=== PATIENT | female | born 1980 | race Caucasian/White ===

== ENCOUNTER 2017-09-27 17:54 | Emergency (ER) | payer MEDICAID, SELFPAY | END 2017-09-27 19:07 | disposition home or self-care (01) | PROVIDERS: Emergency Provider Nurse Practitioner Family; Family Provider Emergency Medicine; Visit Provider Nurse Practitioner Family | DX: M26.69 Other specified disorders of temporomandibular joint (principal); F17.210 Nicotine dependence, cigarettes, uncomplicated; Z85.41 Personal history of malignant neoplasm of cervix uteri | CPT/HCPCS: 99201 ==

== ENCOUNTER 2018-05-06 14:30 | Outpatient (RCR) | payer MEDICAID, SELFPAY | END 2018-05-06 15:30 | disposition home or self-care (01) | LOC: PT 14:30 | PROVIDERS: Family Provider Emergency Medicine; PCP Emergency Medicine; Visit Provider Emergency Medicine | DX: M54.9 Dorsalgia, unspecified (principal) | CPT/HCPCS: 97010; 97110; 97163 ==

== ENCOUNTER → 2018-08-05 14:51 | Outpatient (CLI) | payer MEDICAID, SELFPAY ==
--- NOTE | 2018-08-05 14:53 | MR_ITS ---
MR lumbar spine wo con, MR 3-d myelogram/MRCP Ordering Physician: Nasir Mensah MD Patient Age: 37 years: Female HISTORY: ITS.REASON: back pain Low back pain for many years. At times bilateral leg pain. TECHNIQUE: Sagittal STIR, T1, T2, axial T1 and T2. On 1.5T Siemens wide bore MRI. 3-D MR myelogram image set obtained & performed on MRI workstation. Additional sagittal thin section T2 weighted dataset obtained from this latter acquisition as well (---76 CPT) COMPARISON :Previous MRI lumbar spine FINDINGS Lumbar vertebral bodies are intact with no compression fracture or lesion. Normal alignment. L5/S1. Disc height maintained but there is loss of hydration/disc desiccation.. Mild minimal diffuse disc bulge most evident towards the right and right foramen. Mild/ Moderate facet arthropathy and hypertrophy. More evident on left... L5 vertebra:-Bilateral Pars Defects. A definite pars defect most evident on right & a nicely demonstrated on February 2018 CT as well. However there is bony sclerosis associated with I suspect a very very subtle pars defect to the left pars at L5/S1.. Subtle reactive bone changes about this pars defect on left.. Sagittal image 14., Axial 40 L4/5. Disc desiccation but Disc height maintained.. Generous central disc bulge//broad-based central disc protrusion, which indents indents aspect of thecal sac, at midline & extends slightly to the left of midline... This appears similar, but slightly more pronounced than on December 2014 MR study. Mild facet arthropathy/ hypertrophy bilaterally at this level as well.. Mild narrowing encroachment upon the entry the foramen bilaterally L3/4. Disc well hydrated well-maintained. Intact unremarkable. Mild facet arthropathy and hypertrophy. L2/3. Disc hydrated intact. Minor facet arthropathy. L1/2 disc intact. Stable. T12/L1 disc intact. Scant disc bulge T11/T12 mild disc space narrowing with eccentric rightward disc bulge or perhaps consider is a mild broad-based disc protrusion right paracentral. This effaces the thecal sac to the right. There is associated very small focus of high T2 signal along posterior disc margin-this may reflect a small annular fissure,-just to the right of midline axial image 4 . There is also some mild facet a prominence and hypertrophy are believe evident at T11/12 a most evident the left indenting the posterior left aspect the thecal sac. 3-D MR myelogram image set., Shows only some slight anterior indentation thecal sac at L4/5, less than I would've expected from axial image. We do see the indentation upon the thecal sac to the right at the T11-12 level, similar to previous December 2014 study IMPRESSION...... 1... L5 with bilateral pars defect. No listhesis Pars defect most evident on RIGHT. The subtle LEFT pars defect with bony sclerosis reactive & minor reactive bone changes. (This L5 pars defect also nicely seen on February 2018 CT abdomen pelvis) 2... L4/5. Generous central disc bulge// broad-based central disc protrusion which indents effaces thecal sac at midline & slightly to left of midline.. Only Slight progression of this feature since 2014... Mild facet hypertrophy. 3. T11/12.. Small broad-based disc protrusion rightward. Is similar to Perhaps very slight evident than on 2015 as well. However on today's study would additional Small tiny high signal focus at posterior disc margin to the right which could reflect a tiny annular fissure as well at this T11/12 disc protrusion.
== END ==
PROVIDERS: PCP Emergency Medicine; Visit Provider Emergency Medicine
DX: M54.9 Dorsalgia, unspecified (principal)
CPT/HCPCS: 72148; 76376

== ENCOUNTER → 2018-08-19 14:30 | Outpatient (CLI) | payer MEDICAID, SELFPAY ==
--- NOTE | 2018-08-19 14:31 | US_ITS ---
US abdomen limited History:Vomiting, right upper quadrant pain Ordering Physician:Mumtaz Faith Patient Age: 37 years Comparison:None Findings: Pancreas:Unremarkable. No obvious mass or abnormal fluid collection. No ductal dilatation Liver:No focal liver lesions demonstrated. Homogeneous echogenicity. No intrahepatic biliary ductal dilatation evident Right Kidney:Unremarkable. Normal size and echogenicity. No hydronephrosis Gallbladder:No gallstones, gallbladder wall thickening, pericholecystic fluid, or biliary dilatation. Impression:Negative gallbladder/right upper quadrant ultrasound
== END ==
PROVIDERS: PCP Emergency Medicine; Visit Provider Nurse Practitioner Family
DX: R10.11 Right upper quadrant pain (principal)
CPT/HCPCS: 76705

== ENCOUNTER → 2018-09-06 10:08 | Outpatient (POV) | payer MEDICAID, SELFPAY ==
[2018-09-06 10:19] VITALS: BP 150/95; PULSE 130; RESP 18; O2SAT 98
--- NOTE | 2018-09-06 11:08 | HMH.PMCON ---
Assessment and Plan (1) Lumbar spondylosis Current visit: Yes Status: Chronic Category: Medical Code(s): M47.816 - Spondylosis without myelopathy or radiculopathy, lumbar region (2) Degenerative disc disease Current visit: Yes Status: Chronic Qualifiers: Spinal region: lumbar Qualified Code(s): M51.36 - Other intervertebral disc degeneration, lumbar region Category: Medical - Assessment and plan all Dx Assessment and Plan for all problems:: We will schedule the patient for an L4-L5 L5-S1 medial branch block/facet joint injection. I believe that this would be beneficial for her. Patient and I discussed the diagnostic nature of this. Patient may be interested in RFA in the future. Patient is not on any anticoagulation therapy. She is continuing a home stretching exercise program. This note was dictated using voice recognition software and may contain errors or omissions HPI - Data of Consult Consult date: 09/06/18 Requesting Physician: Anayeli Finn APRN Primary Care Provider: Nasir Mensah MD - Consult Narrative Reason for consult: Back pain History of present illness: Ms. Washington is a 37 year old female who presents her consultation in regards to her low back pain. Patient was seen in our clinic in 2014 when she was told that we could only do injections for her due to a THC positive UDS. Patient states that her primary care physician is continuing her [place] to make her comfortable . Patient states sitting and standing makes her pain worse well resting decreases it. Patient states that the pain is very focal in her low back. Patient's tried and failed physical therapy along with massage therapy. Patient is tried [place], meloxicam, gabapentin with no relief. She rates her pain a 7 out of 10 today. Patient has a new MRI showing facet arthropathy. Patient and I discussed initial facet injections CC: Anayeli Finn APRN [facility] History I have reviewed the patient's past medical history: Yes Medical History: Denies:: Diabetes Mellitus Type 1, Diabetes Mellitus Type 2 Other Surgeries: Yes: Dilation and Curettage, Diagnostic Lap. No: No Previous Surgery, Colonoscopy Amputation: No Fractures: No - *Social History Smoking Status: Current every day smoker Tobacco Type: cigarettes # Packs/Day (cigarettes): 1 Alcohol Intake: never Substance Use Type: marijuana Last Used Substance: unknown Occupational Status: other Housing: house - Psychiatric History Expresses thoughts of harming self/others: None Suicide Plan Description: No Plan *Family Hx:: Hypertension, Heart Attack Review of Systems - Review of Systems ROS General: no recent weight change, no fever, no sleep disturbances Respiratory: no cough, no shortness of air, no recurring pulmonary infections Cardiovascular/Peripheral Vascular: No chest pain, No palpitations, no edema, no shortness of breath. Gastrointestinal: no incontinence, normal bowel movements reported Genitourinary: no incontinence Musculoskeletal: Back pain Psychiatric: normal mood/ affect Neurological: [denies weakness in extremities], [denies balance issues] Meds Allergies Allergy/AdvReac Type Severity Reaction Status Date / Time No Known Allergies Allergy Verified 08/24/18 15:07 Objective Vital signs: Pulse Resp BP Pulse Ox 130 H 18 150/95 H 98 09/06/18 10:19 09/06/18 10:19 09/06/18 10:19 09/06/18 10:19 Narrative: Physical Exam General: Alert and oriented x3, no acute distress, pleasant and cooperative, [on room air] Lungs: Resps E/U, Symmetrical chest expansion, Eyes: PERRL Musculoskeletal: Flexion and extension of lumbar spine somewhat guarded secondary to pain, deep tendon reflexes normal, strength in upper and lower extremities [5/5], slightly antalgic noted, positive facet loading lumbar spine, positive Kemps test Neurological: speech clear, scale reclamation tender equal, no gross sensory deficits
--- NOTE | 2018-09-06 11:11 | P.CONS_ITS ---
Assessment and Plan (1) Lumbar spondylosis Current visit: Yes Status: Chronic Category: Medical Code(s): M47.816 - Spondylosis without myelopathy or radiculopathy, lumbar region (2) Degenerative disc disease Current visit: Yes Status: Chronic Qualifiers: Spinal region: lumbar Qualified Code(s): M51.36 - Other intervertebral disc degeneration, lumbar region Category: Medical - Assessment and plan all Dx Assessment and Plan for all problems:: We will schedule the patient for an L4-L5 L5-S1 medial branch block/facet joint injection. I believe that this would be beneficial for her. Patient and I discussed the diagnostic nature of this. Patient may be interested in RFA in the future. Patient is not on any anticoagulation therapy. She is continuing a home stretching exercise program. This note was dictated using voice recognition software and may contain errors or omissions HPI - Data of Consult Consult date: 09/06/18 Requesting Physician: Anayeli Finn APRN Primary Care Provider: Nasir Mensah MD - Consult Narrative Reason for consult: Back pain History of present illness: Ms. Washington is a 37 year old female who presents her consultation in regards to her low back pain. Patient was seen in our clinic in 2014 when she was told that we could only do injections for her due to a THC positive UDS. Patient states that her primary care physician is continuing her [place] to make her comfortable . Patient states sitting and standing makes her pain worse well resting decreases it. Patient states that the pain is very focal in her low back. Patient's tried and failed physical therapy along with massage therapy. Patient is tried [place], meloxicam, gabapentin with no relief. She rates her pain a 7 out of 10 today. Patient has a new MRI showing facet arthropathy. Patient and I discussed initial facet injections CC: Anayeli Finn APRN [facility] History I have reviewed the patient's past medical history: Yes Medical History: Denies:: Diabetes Mellitus Type 1, Diabetes Mellitus Type 2 Other Surgeries: Yes: Dilation and Curettage, Diagnostic Lap. No: No Previous Surgery, Colonoscopy Amputation: No Fractures: No - *Social History Smoking Status: Current every day smoker Tobacco Type: cigarettes # Packs/Day (cigarettes): 1 Alcohol Intake: never Substance Use Type: marijuana Last Used Substance: unknown Occupational Status: other Housing: house - Psychiatric History Expresses thoughts of harming self/others: None Suicide Plan Description: No Plan *Family Hx:: Hypertension, Heart Attack Review of Systems - Review of Systems ROS General: no recent weight change, no fever, no sleep disturbances Respiratory: no cough, no shortness of air, no recurring pulmonary infections Cardiovascular/Peripheral Vascular: No chest pain, No palpitations, no edema, no shortness of breath. Gastrointestinal: no incontinence, normal bowel movements reported Genitourinary: no incontinence Musculoskeletal: Back pain Psychiatric: normal mood/ affect Neurological: [denies weakness in extremities], [denies balance issues] Meds Allergies Allergy/AdvReac Type Severity Reaction Status Date / Time No Known Allergies Allergy Verified 08/24/18 15:07 Objective Vital signs: Pulse Resp BP Pulse Ox 130 H 18 150/95 H 98
== END ==
PROVIDERS: PCP Emergency Medicine; Visit Provider Clinical Nurse Specialist Family Health
DX: M47.816 Spondylosis without myelopathy or radiculopathy, lumbar region (principal); M51.36 Other intervertebral disc degeneration, lumbar region
CPT/HCPCS: 99202

== ENCOUNTER → 2018-10-24 14:02 | Outpatient (CLI) | payer MEDICAID, SELFPAY ==
[2018-10-24 14:54] LABS: Amphetamine/Metha Screen,Urine Negative ng/mL (<1000); Barbiturates Screen,Urine Negative ng/mL (<200); Benzodiazepines Screen,Urine Negative ng/mL (<200); Cannabinoid Screen,Urine Negative ng/mL (<50); Cocaine Screen,Urine Negative ng/mL (<300); Methadone Screen,Urine Negative ng/mL (<300); Opiate Screen,Urine Positive ng/mL (<300); Phencyclidine Screen,Urine Negative ng/mL (<25)
== END ==
PROVIDERS: Visit Provider Emergency Medicine
DX: M51.16 Intervertebral disc disorders with radiculopathy, lumbar region (principal)
CPT/HCPCS: 80305

== ENCOUNTER → 2018-10-31 09:25 | Outpatient (POV) | payer MEDICAID, SELFPAY ==
[2018-10-31 09:26] VITALS: BP 132/94; PULSE 119; RESP 18; O2SAT 98; BMI 26.2
--- NOTE | 2018-10-31 09:49 | HMH.PAINSOAP ---
[facility] Pain Management SOAP Note Subjective:: Patient is a pleasant 38-year-old white female who presents today for follow-up. Patient was scheduled for an L4-L5 L5 medial branch block however she was unable to make her appointment. Patient is here to schedule that. She states that sitting and standing make her pain worse while resting decreases it. Her pain very focal in her lower back. Patient states she has issues with any kind of twisting motion. Patient's tried multiple medications including meloxicam gabapentin and [place] with no relief she rates her pain an 8 out of 10 today. MRI shows facet arthropathy. Patient understands that the medial branch block/facet joint injection is for a diagnostic reason. He may be a candidate in the future for rhizotomy ROS General: no recent weight change, no fever, no sleep disturbances Respiratory: no cough, no shortness of air, no recurring pulmonary infections Cardiovascular/Peripheral Vascular: No chest pain, No palpitations, no edema, no shortness of breath. Gastrointestinal: no incontinence, normal bowel movements reported Genitourinary: no incontinence Musculoskeletal: Back pain Psychiatric: normal mood/ affect Neurological: [denies weakness in extremities], [denies balance issues] Objective:: Physical Exam General: Alert and oriented x3, no acute distress, pleasant and cooperative, on room air Lungs: Resps E/U, Symmetrical chest expansion, Eyes: PERRL Musculoskeletal: Flexion and extension of lumbar spine somewhat guarded secondary to pain, deep tendon reflexes normal, strength in upper and lower extremities [5/5], [abnormal gait noted] positive Kemps test bilateral lumbar spine Neurological: speech clear, herbarium curator equal, no gross sensory deficits Assessment:: Degenerative disc disease with lumbar spine with lumbar spondylosis and facet arthropathy Plan:: We will schedule the patient for an L4-L5 L5-S1 medial branch block/facet joint injection. I believe this would be beneficial for her given her symptomology. Patient understands a diagnostic nerve this. Patient is not on any anticoagulation therapy and if she is continuing a home stretching program. I will follow-up with her after her injection. Dr. Vidal has reviewed this note and agrees with this plan of care. This note was dictated using voice recognition software and may contain errors or omissions
--- NOTE | 2018-10-31 09:52 | P.CONS_ITS ---
[facility] Pain Management SOAP Note Subjective:: Patient is a pleasant 38-year-old white female who presents today for follow-up. Patient was scheduled for an L4-L5 L5 medial branch block however she was unable to make her appointment. Patient is here to schedule that. She states that sitting and standing make her pain worse while resting decreases it. Her pain very focal in her lower back. Patient states she has issues with any kind of twisting motion. Patient's tried multiple medications including meloxicam gabapentin and [place] with no relief she rates her pain an 8 out of 10 today. MRI shows facet arthropathy. Patient understands that the medial branch block/facet joint injection is for a diagnostic reason. He may be a candidate in the future for rhizotomy ROS General: no recent weight change, no fever, no sleep disturbances Respiratory: no cough, no shortness of air, no recurring pulmonary infections Cardiovascular/Peripheral Vascular: No chest pain, No palpitations, no edema, no shortness of breath. Gastrointestinal: no incontinence, normal bowel movements reported Genitourinary: no incontinence Musculoskeletal: Back pain Psychiatric: normal mood/ affect Neurological: [denies weakness in extremities], [denies balance issues] Objective:: Physical Exam General: Alert and oriented x3, no acute distress, pleasant and cooperative, on room air Lungs: Resps E/U, Symmetrical chest expansion, Eyes: PERRL Musculoskeletal: Flexion and extension of lumbar spine somewhat guarded sec ondary to pain, deep tendon reflexes normal, strength in upper and lower extremities [5/5], [abnormal gait noted] positive Kemps test bilateral lumbar spine Neurological: speech clear, penetration tester equal, no gross sensory deficits Assessment:: Degenerative disc disease with lumbar spine with lumbar spondylosis and facet arthropathy Plan:: We will schedule the patient for an L4-L5 L5-S1 medial branch block/facet joint injection. I believe this would be beneficial for her given her symptomology. Patient understands a diagnostic nerve this. Patient is not on any anticoagulation therapy and if she is continuing a home stretching program. I will follow-up with her after her injection. Dr. Vidal has reviewed this note and agrees with this plan of care. This note was dictated using voice recognition software and may contain errors or omissions
== END ==
PROVIDERS: PCP Emergency Medicine; Visit Provider Clinical Nurse Specialist Family Health
DX: M51.36 Other intervertebral disc degeneration, lumbar region (principal); M47.896 Other spondylosis, lumbar region; M54.06 Panniculitis affecting regions of neck and back, lumbar region
CPT/HCPCS: 99213

== ENCOUNTER → 2018-12-12 09:52 | Outpatient (POV) | payer MEDICAID, SELFPAY ==
[2018-12-12 10:19] VITALS: BP 138/98; PULSE 120; RESP 18; O2SAT 99; BMI 25.0
--- NOTE | 2018-12-12 10:42 | P.CONS_ITS ---
[facility] Pain Management SOAP Note Subjective:: Patient is a pleasant 38-year-old white female who presents today for follow-up after lumbar medial branch block. Patient had no pain after the procedure. Patient's pain did return after the diagnostic anesthesia wore off. Patient stated that during this time she is much more functional and able to bend and move. She rates her pain a 5 out of 10 today. Patient is interested in repeating this. I do believe it is beneficial given the efficacy of the last one. Patient's pain is mainly in her low back. It does not radiate. ROS General: no recent weight change, no fever, no sleep disturbances Respiratory: no cough, no shortness of air, no recurring pulmonary infections Cardiovascular/Peripheral Vascular: No chest pain, No palpitations, no edema, no shortness of breath. Gastrointestinal: no incontinence, normal bowel movements reported Genitourinary: no incontinence Musculoskeletal: Back pain Psychiatric: normal mood/ affect Neurological: [denies weakness in extremities], [denies balance issues] Objective:: Physical Exam General: Alert and oriented x3, no acute distress, pleasant and cooperative, [on room air] Lungs: Resps E/U, Symmetrical chest expansion Eyes: PERRL Musculoskeletal: Flexion and extension of lumbar spine somewhat guarded secondary to pain, deep tendon reflexes normal, strength in upper and lower extremities [5/5], antalgic gait noted, positive test bilateral lumbar spine Neurological: speech clear, network systems consultant equal, no gross sensory deficits Assessment:: Facet arthropathy, degenerative disc disease lumbar spine and lumbar spondylosis Plan:: We will schedule the patient for a medial branch block at L3-L4 L4-L5 L5-S1. If this is successful. She will be a candidate for rhizotomy. I will follow-up with the patient after her injection and reassess her symptoms at that time. She still continuing a home stretching routine and is not on any anticoagulation therapy. Dr. Vidal has reviewed this note and agrees with this plan of care. This note was dictated using voice recognition software and may contain errors or omissions
== END ==
PROVIDERS: PCP Emergency Medicine; Visit Provider Clinical Nurse Specialist Family Health
DX: M51.36 Other intervertebral disc degeneration, lumbar region (principal); M47.816 Spondylosis without myelopathy or radiculopathy, lumbar region; M54.06 Panniculitis affecting regions of neck and back, lumbar region
CPT/HCPCS: 99213

== ENCOUNTER → 2018-12-21 16:57 | Outpatient (CLI) | payer MEDICAID, SELFPAY ==
[2018-12-21 18:28] LABS: Amphetamine/Metha Screen,Urine Negative ng/mL (<1000); Barbiturates Screen,Urine Negative ng/mL (<200); Benzodiazepines Screen,Urine Negative ng/mL (<200); Cannabinoid Screen,Urine Negative ng/mL (<50); Cocaine Screen,Urine Negative ng/mL (<300); Methadone Screen,Urine Negative ng/mL (<300); Opiate Screen,Urine Positive ng/mL (<300); Phencyclidine Screen,Urine Negative ng/mL (<25)
== END ==
PROVIDERS: Visit Provider Emergency Medicine
DX: M47.816 Spondylosis without myelopathy or radiculopathy, lumbar region (principal)
CPT/HCPCS: 80305

== ENCOUNTER → 2019-02-07 10:37 | Outpatient (POV) | payer MEDICAID, SELFPAY ==
[2019-02-07 10:59] VITALS: BP 142/84; PULSE 94; RESP 18; O2SAT 98; BMI 24.4
--- NOTE | 2019-02-07 11:08 | HMH.PAINSOAP ---
[facility] Pain Management SOAP Note Subjective:: Patient is a pleasant 38-year-old white female who presents today for follow-up after her second round of medial branch blocks. Patient had no relief with this. Patient and I discussed options moving forward she is failed injective therapy along with medications. Patient is interested in neuro stimulation. I do believe it would be beneficial for her. Patient has mostly low back and leg pain. ROS General: no recent weight change, no fever, no sleep disturbances Respiratory: no cough, no shortness of air, no recurring pulmonary infections Cardiovascular/Peripheral Vascular: No chest pain, No palpitations, no edema, no shortness of breath. Gastrointestinal: no incontinence, normal bowel movements reported Genitourinary: no incontinence Musculoskeletal: Back and leg pain Psychiatric: normal mood/ affect Neurological: [denies weakness in extremities], [denies balance issues] Objective:: Physical Exam General: Alert and oriented x3, no acute distress, pleasant and cooperative, [on room air] Lungs: Resps E/U, Symmetrical chest expansion, Eyes: PERRL Musculoskeletal: Flexion and extension of lumbar spine somewhat guarded secondary to pain, deep tendon reflexes normal, strength in upper and lower extremities [5/5], [abnormal gait noted] Neurological: speech clear, educational administration teacher equal, no gross sensory deficits Assessment:: Degenerative disc disease lumbar spine with lumbar spondylosis facet arthropathy and lumbar radiculopathy along with CRPS type II Plan:: We will set the patient up for psychological evaluation to determine if she is a candidate for nerve stimulation. I will follow-up with her after this reassess her symptoms at that time. Dr. Vidal has reviewed this note and agrees with this plan of care. This note was dictated using voice recognition software and may contain errors or omissions
== END ==
PROVIDERS: PCP Emergency Medicine; Visit Provider Clinical Nurse Specialist Family Health
DX: M51.16 Intervertebral disc disorders with radiculopathy, lumbar region (principal); M47.896 Other spondylosis, lumbar region
CPT/HCPCS: 99212

== ENCOUNTER → 2019-02-14 17:43 | Outpatient (CLI) | payer MEDICAID, SELFPAY ==
[2019-02-14 18:24] LABS: Amphetamine/Metha Screen,Urine Negative ng/mL (<1000); Barbiturates Screen,Urine Negative ng/mL (<200); Benzodiazepines Screen,Urine Negative ng/mL (<200); Cannabinoid Screen,Urine Negative ng/mL (<50); Cocaine Screen,Urine Negative ng/mL (<300); Methadone Screen,Urine Negative ng/mL (<300); Opiate Screen,Urine Positive ng/mL (<300); Phencyclidine Screen,Urine Negative ng/mL (<25)
== END ==
PROVIDERS: Visit Provider Emergency Medicine
DX: M51.16 Intervertebral disc disorders with radiculopathy, lumbar region (principal)
CPT/HCPCS: 80305

== ENCOUNTER → 2019-04-14 17:18 | Outpatient (CLI) | payer MEDICAID, SELFPAY ==
[2019-04-14 20:33] LABS: Amphetamine/Metha Screen,Urine Negative ng/mL (<1000); Barbiturates Screen,Urine Negative ng/mL (<200); Benzodiazepines Screen,Urine Negative ng/mL (<200); Cannabinoid Screen,Urine Negative ng/mL (<50); Cocaine Screen,Urine Negative ng/mL (<300); Methadone Screen,Urine Negative ng/mL (<300); Opiate Screen,Urine Positive ng/mL (<300); Phencyclidine Screen,Urine Negative ng/mL (<25)
== END ==
PROVIDERS: Visit Provider Emergency Medicine
DX: Z79.899 Other long term (current) drug therapy (principal)
CPT/HCPCS: 80305

== ENCOUNTER → 2019-05-23 09:31 | Outpatient (POV) | payer MEDICAID, SELFPAY ==
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
[2019-05-23 09:56] VITALS: BP 137/92; PULSE 83; RESP 18; O2SAT 98; BMI 23.6
== END ==
PROVIDERS: PCP Emergency Medicine; Visit Provider Clinical Nurse Specialist Family Health
DX: M51.16 Intervertebral disc disorders with radiculopathy, lumbar region (principal); M54.06 Panniculitis affecting regions of neck and back, lumbar region; M47.896 Other spondylosis, lumbar region; G57.73 Causalgia of bilateral lower limbs
CPT/HCPCS: 99212

== ENCOUNTER → 2019-06-19 17:47 | Outpatient (CLI) | payer MEDICAID, SELFPAY ==
[2019-06-19 19:17] LABS: Amphetamine/Metha Screen,Urine Negative ng/mL (<1000); Barbiturates Screen,Urine Negative ng/mL (<200); Benzodiazepines Screen,Urine Negative ng/mL (<200); Cannabinoid Screen,Urine Negative ng/mL (<50); Cocaine Screen,Urine Negative ng/mL (<300); Methadone Screen,Urine Negative ng/mL (<300); Opiate Screen,Urine Negative ng/mL (<300); Phencyclidine Screen,Urine Negative ng/mL (<25)
== END ==
PROVIDERS: Visit Provider Emergency Medicine
DX: M54.9 Dorsalgia, unspecified (principal)
CPT/HCPCS: 80305

== ENCOUNTER → 2019-06-30 10:59 | Outpatient (POV) | payer MEDICAID, SELFPAY ==
[2019-06-30 11:27] VITALS: BP 130/83; PULSE 98; RESP 18; O2SAT 100; BMI 23.7
--- NOTE | 2019-06-30 11:45 | HMH.PAINSOAP ---
[facility] Pain Management SOAP Note Subjective:: This patient is a pleasant 38-year-old white female who we are treating for low back pain with lumbar radicular symptoms. She is failed all conservative therapy including physical therapy, injections, oral medications and she is not a surgical candidate. She has increasing pain in her back radiating down both legs. She underwent spinal cord stimulator trial with 80 to 90% relief in her pain symptoms. She is done very well and also was much more functional. She presents for lead pull today. She wants to proceed with permanent placement of spinal cord stimulator. Objective:: Alert and oriented x3 no acute distress. Patient does have an antalgic gait. Motor strength of the lower extremities is 5/5. There is no gross sensory deficit. Leads were pulled intact with no signs of infection. Assessment:: Degenerative disc disease of lumbar spine with lumbar radiculopathy symptoms Plan:: We will follow-up with her and plan on permanent placement of spinal cord stimulator. This will be a [employer] system. Lead placement will be at T7-T8-T9 bilaterally. Patient had 80 to 90% relief in pain symptoms and increase in function. [facility] History I have reviewed the patient's past medical history: Yes Medical History: Denies:: Cancer, Diabetes Mellitus Type 1, Diabetes Mellitus Type 2, Internal Pacemaker, MRSA, Seizures *Have you ever received a pneumonia vaccine?: No *Have you received a flu vaccine this season?: No Other Medical History: Denies: Blood Transfusion Reaction Laterality Cases: Bilateral: Tonsillectomy Other Surgeries: Yes: Dilation and Curettage, Diagnostic Lap. No: No Previous Surgery, Colonoscopy, Pacemaker Amputation: No Fractures: No - *Social History Smoking Status: Current every day smoker Tobacco Type: cigarettes # Packs/Day (cigarettes): 1 Alcohol Intake: never Substance Use Type: marijuana *Occupational Status:: other Housing: house Household Members: spouse *Travel in the last 8 weeks: None Family Hx:: Hypertension, Heart Attack
--- NOTE | 2019-06-30 11:48 | P.CONS_ITS ---
[facility] Pain Management SOAP Note Subjective:: This patient is a pleasant 38-year-old white female who we are treating for low back pain with lumbar radicular symptoms. She is failed all conservative therapy including physical therapy, injections, oral medications and she is not a surgical candidate. She has increasing pain in her back radiating down both legs. She underwent spinal cord stimulator trial with 80 to 90% relief in her pain symptoms. She is done very well and also was much more functional. She presents for lead pull today. She wants to proceed with permanent placement of spinal cord stimulator. Objective:: Alert and oriented x3 no acute distress. Patient does have an antalgic gait. Motor strength of the lower extremities is 5/5. There is no gross sensory deficit. Leads were pulled intact with no signs of infection. Assessment:: Degenerative disc disease of lumbar spine with lumbar radiculopathy symptoms Plan:: We will follow-up with her and plan on permanent placement of spinal cord stimulator. This will be a Nuvectra system. Lead placement will be at T7-T8-T9 bilaterally. Patient had 80 to 90% relief in pain symptoms and increase in function. [facility] History I have reviewed the patient's past medical history: Yes Medical History: Denies:: Cancer, Diabetes Mellitus Type 1, Diabetes Mellitus Type 2, Internal Pacemaker, MRSA, Seizures *Have you ever received a pneumonia vaccine?: No *Have you received a flu vaccine this season?: No Other Medical History: Denies: Blood Transfusion Reaction Laterality Cases: Bilateral: Tonsillectomy Other Surgeries: Yes: Dilation and Curettage, Diagnostic Lap. No: No Previous Surgery, Colonoscopy, Pacemaker Amputation: No Fractures: No - *Social History Smoking Status: Current every day smoker Tobacco Type: cigarettes # Packs/Day (cigarettes): 1 Alcohol Intake: never Substance Use Type: marijuana *Occupational Status:: other Housing: house Household Members: spouse *Travel in the last 8 weeks: None Family Hx:: Hypertension, Heart Attack
== END ==
PROVIDERS: PCP Emergency Medicine; Visit Provider Anesthesiology
DX: M54.16 Radiculopathy, lumbar region (principal)
CPT/HCPCS: 99212

== ENCOUNTER → 2019-08-03 10:11 | Outpatient (POV) | payer MEDICAID, SELFPAY ==
[2019-08-03 10:20] VITALS: BP 138/87; PULSE 119; RESP 18; O2SAT 98; BMI 25.0
--- NOTE | 2019-08-03 10:26 | HMH.PAINSOAP ---
[facility] Pain Management SOAP Note Subjective:: Patient is a pleasant 38-year-old white female who presents today for follow-up after spinal cord stimulator placement. Patient was in the office yesterday to have her wound VAC removed. Patient is doing well today. She rates her pain a 3 out of 10 today. She says that she has no low back pain, and no left leg pain. She says she does still have some occasional pain with walking, but otherwise her pain is gone. Patient is continuing with anti-inflammatories and a home stretching program. Patient does say the reprogramming well for her. Review of Systems General: No recent weight changes, no fever, no sleep disturbances Respiratory: No cough, no shortness of air, no recurring pulmonary infections Cardiovascular/peripheral vascular: No chest pain, no palpitations, no edema, no shortness of breath Gastrointestinal: No new onset incontinence, normal bowel movements reported Genitourinary: No new onset incontinence Musculoskeletal: Back pain, left leg pain Psychiatric: Normal mood/affect Neurological: [Denies weakness in extremities], [denies balance issues] Objective:: Physical exam General: Alert and oriented x3, no acute distress, pleasant and cooperative, [on room air] Lungs: Respirations even and unlabored, symmetrical chest expansion Eyes: PERRL Musculoskeletal: Flexion and extension of lumbar spine somewhat guarded secondary to pain, deep tendon reflexes normal, strength in upper and lower extremities [5/5], slightly antalgic gait noted Neurological: Speech clear, bearing inspector equal, no gross sensory deficit Integumentary: Incision well approximated sutures intact. No redness no edema no drainage noted to site. Assessment:: Degenerative disc disease lumbar spine with lumbar radiculopathy symptoms, CRPS type II lower extremity bilateral Plan:: Overall, the patient is doing well. I will See her back in 1 week to remove her stitches. She has been instructed to contact the clinic if she has any concerns before her next appointment. [facility] History I have reviewed the patient's past medical history: Yes Medical History: Denies:: Cancer, Diabetes Mellitus Type 1, Diabetes Mellitus Type 2, Internal Pacemaker, MRSA, Seizures *Have you ever received a pneumonia vaccine?: No *Have you received a flu vaccine this season?: No Other Medical History: Denies: Blood Transfusion Reaction Laterality Cases: Bilateral: Tonsillectomy Other Surgeries: Yes: Dilation and Curettage, Diagnostic Lap. No: No Previous Surgery, Colonoscopy, Pacemaker Amputation: No Fractures: No - *Social History Smoking Status: Current every day smoker Tobacco Type: cigarettes # Packs/Day (cigarettes): 10 Alcohol Intake: never Substance Use Type: marijuana *Occupational Status:: other Housing: house Household Members: spouse *Travel in the last 8 weeks: None Family Hx:: Hypertension, Heart Attack
--- NOTE | 2019-08-03 10:30 | P.CONS_ITS ---
[facility] Pain Management SOAP Note Subjective:: Patient is a pleasant 38-year-old white female who presents today for follow-up after spinal cord stimulator placement. Patient was in the office yesterday to have her wound VAC removed. Patient is doing well today. She rates her pain a 3 out of 10 today. She says that she has no low back pain, and no left leg pain. She says she does still have some occasional pain with walking, but otherwise her pain is gone. Patient is continuing with anti-inflammatories and a home stretching program. Patient does say the reprogramming well for her. Review of Systems General: No recent weight changes, no fever, no sleep disturbances Respiratory: No cough, no shortness of air, no recurring pulmonary infections Cardiovascular/peripheral vascular: No chest pain, no palpitations, no edema, no shortness of breath Gastrointestinal: No new onset incontinence, normal bowel movements reported Genitourinary: No new onset incontinence Musculoskeletal: Back pain, left leg pain Psychiatric: Normal mood/affect Neurological: [Denies weakness in extremities], [denies balance issues] Objective:: Physical exam General: Alert and oriented x3, no acute distress, pleasant and cooperative, [on room air] Lungs: Respirations even and unlabored, symmetrical chest expansion Eyes: PERRL Musculoskeletal: Flexion and extension of lumbar spine somewhat guarded secondary to pain, deep tendon reflexes normal, strength in upper and lower extremities [5/5], slightly antalgic gait noted Neurological: Speech clear, change management equal, no gross sensory deficit Integumentary: Incision well approximated sutures intact. No redness no edema no drainage noted to site. Assessment:: Degenerative disc disease lumbar spine with lumbar radiculopathy symptoms, CRPS type II lower extremity bilateral Plan:: Overall, the patient is doing well. I will See her back in 1 week to remove her stitches. She has been instructed to contact the clinic if she has any concerns before her next appointment. [facility] History I have reviewed the patient's past medical history: Yes Medical History: Denies:: Cancer, Diabetes Mellitus Type 1, Diabetes Mellitus Type 2, Internal Pacemaker, MRSA, Seizures *Have you ever received a pneumonia vaccine?: No *Have you received a flu vaccine this season?: No Other Medical History: Denies: Blood Transfusion Reaction Laterality Cases: Bilateral: Tonsillectomy Other Surgeries: Yes: Dilation and Curettage, Diagnostic Lap. No: No Previous Surgery, Colonoscopy, Pacemaker Amputation: No Fractures: No - *Social History Smoking Status: Current every day smoker Tobacco Type: cigarettes # Packs/Day (cigarettes): 10 Alcohol Intake: never Substance Use Type: marijuana *Occupational Status:: other Housing: house Household Members: spouse *Travel in the last 8 weeks: None Family Hx:: Hypertension, Heart Attack
== END ==
PROVIDERS: PCP Emergency Medicine; Visit Provider Clinical Nurse Specialist Family Health
DX: M51.16 Intervertebral disc disorders with radiculopathy, lumbar region (principal); G57.73 Causalgia of bilateral lower limbs
CPT/HCPCS: 99212

== ENCOUNTER → 2019-08-14 10:47 | Outpatient (POV) | payer MEDICAID, SELFPAY ==
--- NOTE | 2019-08-14 11:22 | P.CONS_ITS ---
[facility] Pain Management SOAP Note Subjective:: Patient is a pleasant 38-year-old white female who presents today for follow-up. Overall patient is doing extremely well she rates her pain 2 out of 10. Her stitches were removed her incision is well approximated with no sign symptoms of infection. She states that the majority of her pain is gone. She is on anti- inflammatories and continuing home stretching program. ROS General: no recent weight change, no fever, no sleep disturbances Respiratory: no cough, no shortness of air, no recurring pulmonary infections Cardiovascular/Peripheral Vascular: No chest pain, No palpitations, no edema, no shortness of breath. Gastrointestinal: no new onset incontinence, normal bowel movements reported Genitourinary: no new onset incontinence Musculoskeletal: Back pain, leg pain Psychiatric: normal mood/ affect Neurological: [denies new onset weakness in extremities], [denies new onset balance issues] Objective:: Physical Exam General: Alert and oriented x3, no acute distress, pleasant and cooperative, [on room air] Lungs: Resps E/U, Symmetrical chest expansion, Eyes: PERRL Musculoskeletal: Flexion and extension of lumbar spine somewhat guarded secondary to pain, deep tendon reflexes normal, strength in upper and lower extremities [5/5], antalgic gait noted Neurological: speech clear, finance admin equal, no gross sensory deficits Assessment:: Degenerative disc disease lumbar spine with lumbar radiculopathy symptoms CRPS type II lower extremity bilateral Plan:: We will see the patient back in 1 month reassess her symptoms at that time she is been instructed to call the office if she has any issues prior to her next appointment. Dr. Vidal has reviewed this note and agrees with this plan of care. This note was dictated using voice recognition software and may contain errors or omissions [facility] History I have reviewed the patient's past medical history: Yes Medical History: Denies:: Cancer, Diabetes Mellitus Type 1, Diabetes Mellitus Type 2, Internal Pacemaker, MRSA, Seizures *Have you ever received a pneumonia vaccine?: No *Have you received a flu vaccine this season?: No Other Medical History: Denies: Blood Transfusion Reaction Laterality Cases: Bilateral: Tonsillectomy Other Surgeries: Yes: Dilation and Curettage, Diagnostic Lap. No: No Previous Surgery, Colonoscopy, Pacemaker Amputation: No Fractures: No - *Social History Smoking Status: Current every day smoker Tobacco Type: cigarettes # Packs/Day (cigarettes): 10 Alcohol Intake: never Substance Use Type: marijuana *Occupational Status:: other Housing: house Household Members: spouse *Travel in the last 8 weeks: None Family Hx:: Hypertension, Heart Attack
[2019-08-14 11:43] VITALS: BP 138/85; PULSE 108; RESP 18; O2SAT 98; BMI 25.0
== END ==
PROVIDERS: PCP Emergency Medicine; Visit Provider Clinical Nurse Specialist Family Health
DX: M51.16 Intervertebral disc disorders with radiculopathy, lumbar region (principal); G57.73 Causalgia of bilateral lower limbs
CPT/HCPCS: 99213

== ENCOUNTER → 2019-08-16 18:02 | Outpatient (CLI) | payer MEDICAID, SELFPAY ==
[2019-08-16 20:15] LABS: Amphetamine/Metha Screen,Urine Negative ng/mL (<1000); Barbiturates Screen,Urine Negative ng/mL (<200); Benzodiazepines Screen,Urine Negative ng/mL (<200); Cannabinoid Screen,Urine Negative ng/mL (<50); Cocaine Screen,Urine Negative ng/mL (<300); Methadone Screen,Urine Negative ng/mL (<300); Opiate Screen,Urine Positive ng/mL (<300); Phencyclidine Screen,Urine Negative ng/mL (<25)
== END ==
PROVIDERS: Visit Provider Emergency Medicine
DX: Z79.899 Other long term (current) drug therapy (principal)
CPT/HCPCS: 80305

== ENCOUNTER → 2019-09-12 08:57 | Outpatient (POV) | payer MEDICAID, SELFPAY ==
[2019-09-12 09:01] VITALS: BP 119/83; PULSE 114; RESP 18; O2SAT 99; BMI 25.0
--- NOTE | 2019-09-12 14:12 | HMH.PAINSOAP ---
[facility] Pain Management SOAP Note Subjective:: Patient is a pleasant 38-year-old white female who presents today for follow-up. She is being treated for low back pain with lumbar radiculopathy symptoms along with CRPS type II of her lower bilateral extremities. Patient says that she is doing well overall with her spinal cord stimulator. She rates her pain a 3 out of 10 today. She does say, however, that she needs reprogramming of her stimulator. She is here today to discuss possible reprogramming of her stimulator. She is on anti-inflammatories and a home stretching program. She would like process contact the spinal cord stimulator claims customer service representative to schedule appointment for reprogramming. Review of Systems General: No recent weight changes, no fever, no sleep disturbances Respiratory: No cough, no shortness of air, no recurring pulmonary infections Cardiovascular/peripheral vascular: No chest pain, no palpitations, no edema, no shortness of breath Gastrointestinal: No new onset incontinence, normal bowel movements reported Genitourinary: No new onset incontinence Musculoskeletal: Bilateral leg pain, low back pain Psychiatric: Normal mood/affect Neurological: [Denies weakness in extremities], [denies balance issues] Objective:: Physical exam General: Alert and oriented x3, no acute distress, pleasant and cooperative, [on room air] Lungs: Respirations even and unlabored, symmetrical chest expansion Eyes: PERRL Musculoskeletal: Flexion and extension of lumbar spine somewhat guarded secondary to pain, deep tendon reflexes normal, strength in upper and lower extremities [5/5], [abnormal gait noted] Neurological: Speech clear, inspector of dredging equal, no gross sensory deficit Assessment:: Degenerative disc disease lumbar spine with lumbar radiculopathy symptoms, CRPS type II bilateral lower extremities Plan:: Overall, the patient is doing well following her spinal cord stimulator. Her incision is well approximated with no drainage, edema, or redness noted. Incision has healed nicely. We will schedule her to meet with a spinal cord stimulator claims customer service representative to see if he can reprogram the patient. We will see her back in the clinic and 1 month to reassess her symptoms. She has been instructed to contact the clinic if she has any concerns before next appointment. Dr. Vidal has reviewed this note and agrees with this plan of care. This note was dictated using voice recognition software and make contain errors or omissions. [facility] History I have reviewed the patient's past medical history: Yes Medical History: Denies:: Cancer, Diabetes Mellitus Type 1, Diabetes Mellitus Type 2, Internal Pacemaker, MRSA, Seizures *Have you ever received a pneumonia vaccine?: Yes *Have you received a flu vaccine this season?: Yes Other Medical History: Denies: Blood Transfusion Reaction Laterality Cases: Other Surgeries: Yes: Dilation and Curettage, Diagnostic Lap. No: No Previous Surgery, Colonoscopy, Pacemaker Amputation: No Fractures: No - *Social History Smoking Status: Current every day smoker Tobacco Type: cigarettes # Packs/Day (cigarettes): 10 Alcohol Intake: never Substance Use Type: marijuana *Occupational Status:: other Housing: house Household Members: spouse *Travel in the last 8 weeks: None Family Hx:: Hypertension, Heart Attack
== END ==
PROVIDERS: PCP Emergency Medicine; Visit Provider Clinical Nurse Specialist Family Health
DX: M51.16 Intervertebral disc disorders with radiculopathy, lumbar region (principal); G57.73 Causalgia of bilateral lower limbs
CPT/HCPCS: 99212

== ENCOUNTER → 2019-10-17 09:09 | Outpatient (POV) | payer MEDICAID, SELFPAY ==
[2019-10-17 09:21] VITALS: BP 145/84; PULSE 116; RESP 18; O2SAT 99; BMI 25.3
--- NOTE | 2019-10-17 09:39 | HMH.PAINSOAP ---
[facility] Pain Management SOAP Note Subjective:: Patient is a very pleasant 38-year-old white female who presents today for follow-up. Patient had a neurostimulator implanted several months ago. Patient was doing extremely well she did extremely well with her trial getting 90% relief of her symptoms. After implant patient had good relief of her symptoms until recently. The system has become nonfunctional. The generator cannot be read out. There is no ability to tell if there is any impedances or any issues with the leads. Overall it is a complete system failure in regards to her neurostimulator should. She rates her pain a 4 out of 10. Patient's symptomology was well controlled. She has some autonomic changes in regards to her CRPS type II in her bilateral lower extremities. Patient has color changes noted along with swelling and temperature changes. Most of her pain is in her back and her legs. ROS General: no recent weight change, no fever, no sleep disturbances Respiratory: no cough, no shortness of air, no recurring pulmonary infections Cardiovascular/Peripheral Vascular: No chest pain, No palpitations, no edema, no shortness of breath. Gastrointestinal: no new onset incontinence, normal bowel movements reported Genitourinary: no new onset incontinence Musculoskeletal: Back pain, leg pain Psychiatric: normal mood/ affect Neurological: [denies new onset weakness in extremities], [denies new onset balance issues] Objective:: Physical Exam General: Alert and oriented x3, no acute distress, pleasant and cooperative, [on room air] Lungs: Resps E/U, Symmetrical chest expansion, Eyes: PERRL Musculoskeletal: Flexion and extension of lumbar spine somewhat guarded secondary to pain, deep tendon reflexes normal, strength in upper and lower extremities [5/5], antalgic gait noted Neurological: speech clear, library technician equal, no gross sensory deficits Assessment:: Degenerative disc disease lumbar spine with lumbar radiculopathy, CRPS type II bilateral lower extremities Plan:: We will plan on a full system switch out with [employer]. Again patient had extremely good trial with relief of her symptomology and has failed conservative measures including physical therapy, anti-inflammatories, medications. Patient was able to come off of her oral narcotic medications with her neurostimulator. She would like to not restart them. I do believe that this would be the best for the patient. We will move forward with a full system switch out. She is been instructed to call the office if she has any issues prior to her next appointment. Dr. Vidal has reviewed this note and agrees with this plan of care. This note was dictated using voice recognition software and may contain errors or omissions [facility] History I have reviewed the patient's past medical history: Yes Medical History: Denies:: Cancer, Diabetes Mellitus Type 1, Diabetes Mellitus Type 2, Internal Pacemaker, MRSA, Seizures *Have you ever received a pneumonia vaccine?: Yes *Have you received a flu vaccine this season?: Yes Other Medical History: Denies: Blood Transfusion Reaction Laterality Cases: Bilateral: Tonsillectomy Other Surgeries: Yes: Dilation and Curettage, Diagnostic Lap. No: No Previous Surgery, Colonoscopy, Pacemaker Amputation: No Fractures: No - *Social History Smoking Status: Current every day smoker Tobacco Type: cigarettes # Packs/Day (cigarettes): 10 Alcohol Intake: never Substance Use Type: marijuana *Occupational Status:: other Housing: house Household Members: spouse *Travel in the last 8 weeks: None Family Hx:: Hypertension, Heart Attack
== END ==
PROVIDERS: PCP Emergency Medicine; Visit Provider Clinical Nurse Specialist Family Health
DX: M51.16 Intervertebral disc disorders with radiculopathy, lumbar region (principal); G57.73 Causalgia of bilateral lower limbs
CPT/HCPCS: 99212

== ENCOUNTER → 2019-10-31 16:34 | Outpatient (CLI) | payer MEDICAID, SELFPAY ==
[2019-10-31 16:47] LABS: Basophils # 0.1 K/mm3 (0-0.2); Basophils % 0.5 % (0.1-2.0); Eosinophils # 0.1 K/mm3 (0.0-0.4); Eosinophils % 0.9 % (0.1-12.0); Hematocrit 47.7 % (37.0-47.0); Hemoglobin 15.3 g/dL (12.2-16.2); Lymphocytes # 3.9 K/mm3 (0.7-4.5); Lymphocytes % 37.2 % (10-50); Mean Corpuscular Hemoglobin 30.8 pg (27.0-31.2); Mean Corpuscular Volume 96.3 fl (81-99); Mean Platelet Volume 9.3 fl (7.4-10.4); Monocytes # 0.4 K/mm3 (0.1-1.0); Monocytes % 4.1 % (1.7-9.3); Neutrophils % 57.3 % (37.0-80.0); Platelet Count 210 K/mm3 (142-424); Red Blood Count 4.96 M/mm3 (4.20-5.40); Red Cell Distribution Width 13.7 % (11.5-17.5); White Blood Count 10.5 K/mm3 (4.8-10.8)
[2019-10-31 19:53] LABS: Anion Gap 14.9 mEq/L (5-15); Blood Urea Nitrogen 11 mg/dL (7-18); Calcium 9.3 mg/dL (8.5-10.1); Carbon Dioxide 26 mmol/L (21.0-32.0); Chloride 105 mmol/L (98-107); Creatinine,Serum 0.82 mg/dL (0.55-1.02); Estimated Glomerular Filt Rate 77 ml/min (>60); GFR (African American) 93 ML/MIN (>60); Glucose 71 mg/dL (74-106); Potassium 3.9 mmoL/L (3.5-5.1); Sodium 142 mmol/L (136-145)
== END ==
PROVIDERS: Visit Provider Anesthesiology
DX: Z01.818 Encounter for other preprocedural examination (principal)
CPT/HCPCS: 36415; 80048; 85025

== ENCOUNTER → 2019-11-09 08:49 | Outpatient (POV) | payer MEDICAID, SELFPAY ==
[2019-11-09 08:56] VITALS: BP 136/98; PULSE 115; RESP 18; O2SAT 98; BMI 25.7
--- NOTE | 2019-11-09 09:09 | P.CONS_ITS ---
[facility] Pain Management SOAP Note Subjective:: Patient is a pleasant 39-year-old white female who presents today for follow-up. She is being treated for low back pain with lumbar radiculopathy symptoms. She is failed all conservative measures which included physical therapy, injections, oral medications and was not considered a surgical candidate. She did have a new [employer] spinal cord stimulator system in place that was malfunctioning. As result, she did have a replacement of her stimulator. She now has a [employer] stimulator. Post operatively, the patient did develop a headache and, did have to return for a blood patch. She says that she did have some occasional headaches post blood patch, however she says she is feeling better. She does report that she had some nausea over the past week and contributed her nausea and headache to the Cipro that she was taking. As result, she did not complete her antibiotic. Patient is here today for 1 week follow-up. She says she is doing well overall with her pain. She does rate her pain at 3 out of 10 today. Review of Systems General: No recent weight changes, no fever, no sleep disturbances Respiratory: No cough, no shortness of air, no recurring pulmonary infections Cardiovascular/peripheral vascular: No chest pain, no palpitations, no edema, no shortness of breath Gastrointestinal: No new onset incontinence, normal bowel movements reported Genitourinary: No new onset incontinence Musculoskeletal: Low back pain Psychiatric: Normal mood/affect Neurological: [Denies weakness in extremities], [denies balance issues] Objective:: Physical exam General: Alert and oriented x3, no acute distress, pleasant and cooperative, [on room air] Lungs: Respirations even and unlabored, symmetrical chest expansion Eyes: PERRL Musculoskeletal: Flexion and extension of lumbar spine somewhat guarded secondary to pain, deep tendon reflexes normal, strength in upper and lower extremities [5/5], slightly antalgic gait noted Neurological: Speech clear, farmworker grain 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 Overall she is doing well. Her incision is well approximated, with sutures intact. She does not have any drainage, redness, or edema noted. We will see her back in the clinic in 2 weeks to remove her sutures. She did meet with a spinal cord in store representative today for reprogramming. Has been instructed to contact the clinic if she has any concerns before her next appointment. Dr. Vidal has reviewed this note and agrees with this plan of care. This note was dictated using voice recognition software and make contain errors or omissions. [facility] History Medical History: Denies:: Cancer, Diabetes Mellitus Type 1, Diabetes Mellitus Type 2, Internal Pacemaker, MRSA, Seizures *Have you ever received a pneumonia vaccine?: Yes *Have you received a flu vaccine this season?: Yes Other Medical History: Denies: Blood Transfusion Reaction Laterality Cases: Bilateral: Tonsillectomy Other Surgeries: Yes: Dilation and Curettage, Diagnostic Lap. No: No Previous Surgery, Colonoscopy, Pacemaker Amputation: No Fractures: No - *Social History Smoking Status: Current every day smoker Tobacco Type: cigarettes # Packs/Day (cigarettes): 1 Alcohol Intake: never Substance Use Type: marijuana *Occupational Status:: other Housing: house Household Members: spouse *Travel in the last 8 weeks: None Family Hx:: Hypertension, Heart Attack
== END ==
PROVIDERS: PCP Emergency Medicine; Visit Provider Clinical Nurse Specialist Family Health
DX: Z09 Encounter for follow-up examination after completed treatment for conditions other than malignant neoplasm (principal); M51.16 Intervertebral disc disorders with radiculopathy, lumbar region
CPT/HCPCS: 99212

== ENCOUNTER → 2019-11-28 08:53 | Outpatient (POV) | payer MEDICAID, SELFPAY ==
[2019-11-28 08:59] VITALS: BP 133/89; PULSE 85; RESP 18; O2SAT 98; BMI 25.1
--- NOTE | 2019-11-28 09:27 | HMH.PAINSOAP ---
[facility] Pain Management SOAP Note Subjective:: Patient is a pleasant 39-year-old white female who presents today for follow-up after switch out of her neurostimulator. Patient is doing really well she rates her pain a 6 out of 10 at the beginning of the visit however after reprogramming she rates it a 4 out of 10. Patient states it is much easier to do activities of daily living. Patient site and incision has healed well there is no sign symptoms of infection. We will follow-up with her in 1 month reassess her at that time. ROS General: no recent weight change, no fever, no sleep disturbances Respiratory: no cough, no shortness of air, no recurring pulmonary infections Cardiovascular/Peripheral Vascular: No chest pain, No palpitations, no edema, no shortness of breath. Gastrointestinal: no new onset incontinence, normal bowel movements reported Genitourinary: no new onset incontinence Musculoskeletal: Back pain, leg pain Psychiatric: normal mood/ affect, [denies depression], [denies anxiety] Neurological: [denies new onset weakness in extremities], [denies new onset balance issues] Objective:: Physical Exam General: Alert and oriented x3, no acute distress, pleasant and cooperative, [on room air] Lungs: Resps E/U, Symmetrical chest expansion, Eyes: PERRL Musculoskeletal: Flexion and extension of lumbar spine somewhat guarded secondary to pain, deep tendon reflexes normal, strength in upper and lower extremities [5/5], antalgic gait noted Neurological: speech clear, lace tearing supervisor equal, no gross sensory deficits Assessment:: 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 Patient's been instructed to call the office if she has any issues prior to her next appointment. Dr. Vidal has reviewed this note and agrees with this plan of care. This note was dictated using voice recognition software and may contain errors or omissions [facility] History I have reviewed the patient's past medical history: Yes Medical History: Denies:: Cancer, Diabetes Mellitus Type 1, Diabetes Mellitus Type 2, Internal Pacemaker, MRSA, Seizures *Have you ever received a pneumonia vaccine?: No *Have you received a flu vaccine this season?: Yes Other Medical History: Denies: Blood Transfusion Reaction Laterality Cases: Bilateral: Tonsillectomy Other Surgeries: Yes: Dilation and Curettage, Diagnostic Lap. No: No Previous Surgery, Colonoscopy, Pacemaker Amputation: No Fractures: No - *Social History Smoking Status: Current every day smoker Tobacco Type: cigarettes # Packs/Day (cigarettes): 1 Alcohol Intake: never Substance Use Type: marijuana *Occupational Status:: other Housing: house Household Members: spouse *Travel in the last 8 weeks: None Family Hx:: Hypertension, Heart Attack
== END ==
PROVIDERS: PCP Emergency Medicine; Visit Provider Clinical Nurse Specialist Family Health
DX: M51.16 Intervertebral disc disorders with radiculopathy, lumbar region (principal)
CPT/HCPCS: 99213

== ENCOUNTER → 2020-12-30 10:52 | Outpatient (POV) | payer MEDICAID, SELFPAY ==
[2020-12-30 12:23] VITALS: BP 151/92; PULSE 74; RESP 18; O2SAT 98; BMI 26.5
--- NOTE | 2020-12-30 12:24 | P.CONS_ITS ---
[facility] Pain Management SOAP Note Subjective:: Patient is a pleasant 40-year-old white female presents today for follow-up. Patient has a [employer] neurostimulator she rates her pain today 6 out of 10 she has not had it programmed in over a year. I discussed with her that she probably needs to have this done. She agrees. ROS General: no recent weight change, no fever, no sleep disturbances Respiratory: no cough, no shortness of air, no recurring pulmonary infections Cardiovascular/Peripheral Vascular: No chest pain, No palpitations, no edema, no shortness of breath. Gastrointestinal: no new onset incontinence, normal bowel movements reported Genitourinary: no new onset incontinence Musculoskeletal: Back pain, leg pain Psychiatric: normal mood/ affect Neurological: [denies new onset weakness in extremities], [denies new onset balance issues] Objective:: Physical Exam General: Alert and oriented x3, no acute distress, pleasant and cooperative, [on room air] Lungs: Resps E/U, Symmetrical chest expansion, Eyes: PERRL Musculoskeletal: Flexion and extension of lumbar spine somewhat guarded secondary to pain, deep tendon reflexes normal, strength in upper and lower extremities [5/5], [abnormal gait noted] Neurological: speech clear, erosion control coordinator equal, no gross sensory deficits Assessment:: Degenerative disc disease lumbar spine lumbar radiculopathy and CRPS type II Plan:: We will have the a outside industrial sales representative for the neurostimulator contact the patient we will see the patient 2 weeks after a reprogramming. Patient understands and agrees. Dr. Vidal has reviewed this note and agrees with this plan of care. This note was dictated using voice recognition software and may contain errors or omissions [facility] History I have reviewed the patient's past medical history: Yes Medical History: Denies:: Cancer, Diabetes Mellitus Type 1, Diabetes Mellitus Type 2, Internal Pacemaker, MRSA, Seizures *Have you ever received a pneumonia vaccine?: No *Have you received a flu vaccine this season?: Yes Other Medical History: Denies: Blood Transfusion Reaction Laterality Cases: Bilateral: Tonsillectomy Other Surgeries: Yes: Dilation and Curettage, Diagnostic Lap. No: No Previous Surgery, Colonoscopy, Pacemaker Amputation: No Fractures: No - *Social History Smoking Status: Current every day smoker Tobacco Type: cigarettes # Packs/Day (cigarettes): 1 Alcohol Intake: never Substance Use Type: marijuana *Occupational Status:: other Housing: house Household Members: spouse *Travel in the last 8 weeks: None Family Hx:: Hypertension, Heart Attack
== END ==
PROVIDERS: PCP Emergency Medicine; Visit Provider Clinical Nurse Specialist Family Health
DX: M51.16 Intervertebral disc disorders with radiculopathy, lumbar region (principal)
CPT/HCPCS: 99212; G0463

== ENCOUNTER → 2021-03-13 09:12 | Outpatient (POV) | payer MEDICAID, SELFPAY ==
[2021-03-13 09:17] VITALS: BP 182/99; PULSE 115; RESP 18; O2SAT 99; BMI 27.2
--- NOTE | 2021-03-13 09:25 | HMH.PAINSOAP ---
[facility] Pain Management SOAP Note Subjective:: Patient is a 40-year-old white female who presents today for follow-up. Patient does have a [employer] spinal cord stimulator in place. She did meet with the patient care representative 3 weeks ago for reprogramming. She was given 6 new programs which are not working for her. She has the stimulator turned up to stimulation of 53 at this time. She is still not getting relief. She can feel the stimulation, however, she is continuing to have significant low back pain and bilateral leg pain. Her pain is worse in the left leg. She says that she has not had any falls or trauma. She does not feel that the stimulator has given her any significant relief since having it placed. She does rate her pain an 8 out of 10 today. He did discuss oral medications which are not giving her relief. She is also using ice and heat therapies. She is continuing with a home stretching program and medications. She discussed undergoing a CT scan of her lumbar spine with previous provider and would like to proceed. Review of Systems General: No recent weight changes, no fever, no sleep disturbances Respiratory: No cough, no shortness of air, no recurring pulmonary infections Cardiovascular/peripheral vascular: No chest pain, no palpitations, no edema, no shortness of breath Gastrointestinal: No new onset incontinence, normal bowel movements reported Genitourinary: No new onset incontinence Musculoskeletal: Low back pain, bilateral lower extremity pain, worse to left leg Psychiatric: Normal mood/affect Neurological: [Denies weakness in extremities], [denies balance issues] Objective:: Physical exam General: Alert and oriented x3, no acute distress, pleasant and cooperative, [on room air] Lungs: Respirations even and unlabored, symmetrical chest expansion Eyes: PERRL Musculoskeletal: Flexion and extension of lumbar spine somewhat guarded secondary to pain, deep tendon reflexes normal, strength in upper and lower extremities [5/5], [abnormal gait noted] Neurological: Speech clear, television tube inspector equal, no gross sensory deficit Assessment:: Degenerative disc disease lumbar spine with lumbar radiculopathy symptoms, CRPS type II lower extremity Plan:: We will contact the [employer] spinal cord stimulator patient care representative for reprogramming again. We will send her for CT of her lumbar spine to see if she is had any changes since her last scan. We will follow up with her after her imaging to discuss a further plan of care. Dr. Vidal has reviewed this note and agrees with this plan of care. This note was dictated using voice recognition software and make contain errors or omissions. [facility] History I have reviewed the patient's past medical history: Yes Medical History: Denies:: Cancer, Diabetes Mellitus Type 1, Diabetes Mellitus Type 2, Internal Pacemaker, MRSA, Seizures *Have you ever received a pneumonia vaccine?: No *Have you received a flu vaccine this season?: No Other Medical History: Denies: Blood Transfusion Reaction Laterality Cases: Bilateral: Tonsillectomy Other Surgeries: Yes: Dilation and Curettage, Diagnostic Lap. No: No Previous Surgery, Colonoscopy, Pacemaker Amputation: No Fractures: No - *Social History Smoking Status: Current every day smoker Tobacco Type: cigarettes # Packs/Day (cigarettes): 1 Alcohol Intake: never Substance Use Type: marijuana *Occupational Status:: unemployed Housing: house Household Members: spouse *Travel in the last 8 weeks: None Family Hx:: Hypertension, Heart Attack
== END ==
PROVIDERS: PCP Emergency Medicine; Visit Provider Clinical Nurse Specialist Family Health
DX: M51.16 Intervertebral disc disorders with radiculopathy, lumbar region (principal); G57.70 Causalgia of unspecified lower limb
CPT/HCPCS: 99212; G0463

== ENCOUNTER → 2021-03-18 06:45 | Outpatient (CLI) | payer MEDICAID, SELFPAY ==
--- NOTE | 2021-03-18 06:51 | CT_ITS ---
PROCEDURE: CT LUMBAR SPINE WO CON CLINICAL HISTORY: BACK PAIN COMPARISON: CT CT ABDOMEN PELVIS W CON from 05/21/2019 TECHNIQUE: Axial images obtained with sagittal and coronal reformats. All CT scans at the facility use one or more dose reduction, viz: automated exposure control, ma/kV adjustment per patient size (including targeted exams where dose is matched to indication, i.e. head), or iterative reconstruction technique. FINDINGS: There is normal alignment. There are 2 epidural catheter is/lines present which anterior at the L1-L2 level and ascends superiorly. The superior extent of these devices is not visible on the images. T12-L1: Minimal bulging disc. L1-L2: Unremarkable. L2-L3: Unremarkable. L3-L4: Unremarkable. L4-5: Small broad-based central disc protrusion. Mild bilateral lateral recess narrowing from the central disc protrusion. Pars defect is present on the right at L5 with hypertrophic changes at that defect causing right lateral recess narrowing L5-S1: Degenerative disc disease. 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 Spina bifida occulta is present at L5. Mild concentric bulging disc is present. There is some facet hypertrophic change with moderate left-sided foraminal narrowing. There is some sclerosis involving the lower portion and right aspect of L5 vertebral body nonspecific IMPRESSION: 1. L4-5: Small broad-based central disc protrusion. Mild bilateral lateral recess narrowing from the central disc protrusion. Pars defect is present on the right at L5 with hypertrophic changes at that defect causing right lateral recess narrowing 2. L5-S1: Degenerative disc disease. 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 Spina bifida occulta is present at L5. Mild concentric bulging disc is present. There is some facet hypertrophic change with moderate left-sided foraminal narrowing Dictated by: Joe Toro MD 03/18/2021 12:30 Joe Toro MD in [place] 03/18/2021 12:30
== END ==
PROVIDERS: PCP Emergency Medicine; Visit Provider Clinical Nurse Specialist Family Health
DX: M54.5 Low back pain (principal)
CPT/HCPCS: 72131

== ENCOUNTER → 2021-03-27 10:20 | Outpatient (POV) | payer MEDICAID, SELFPAY ==
[2021-03-27 10:37] VITALS: BP 127/93; PULSE 113; RESP 20; O2SAT 98; BMI 27.4
--- NOTE | 2021-03-27 13:15 | HMH.PAINSOAP ---
[facility] [place] Pain Management SOAP Note Subjective:: Patient is a 40-year-old white female who presents today for follow-up. She is being treated for degenerative disc disease lumbar spine with lumbar radiculopathy symptoms. Patient does have a [employer] spinal cord stimulator in place. She is continuing to have significant low back pain with radiation into her lower extremities and says that her stimulator is no longer giving her any relief even after reprogramming. She says that her pain has changed. She says that she has undergone lumbar epidural steroid injections as well as medial branch blocks and RFA's with no relief. She has tried physical therapy for greater than 6 weeks and continues with home stretching. She is also tried anti-inflammatories. Patient's pain is worse when she is bending forward and with extension at her waist. She says that RFA and medial branch blocks, however, did not give her any relief. She did undergo a CT scan of her lumbar spine and is here today to discuss results. Her pain an 8 out of 10 today. Review of Systems General: No recent weight changes, no fever, no sleep disturbances Respiratory: No cough, no shortness of air, no recurring pulmonary infections Cardiovascular/peripheral vascular: No chest pain, no palpitations, no edema, no shortness of breath Gastrointestinal: No new onset incontinence, normal bowel movements reported Genitourinary: No new onset incontinence Musculoskeletal: Low back pain Psychiatric: Normal mood/affect Neurological: [Denies weakness in extremities], [denies balance issues] Objective:: Physical exam General: Alert and oriented x3, no acute distress, pleasant and cooperative, [on room air] Lungs: Respirations even and unlabored, symmetrical chest expansion Eyes: PERRL Musculoskeletal: Flexion and extension of lumbar spine somewhat guarded secondary to pain, deep tendon reflexes normal, strength in upper and lower extremities [5/5], [abnormal gait noted] Neurological: Speech clear, odd shoe examiner equal, no gross sensory deficit Assessment:: Degenerative disc disease lumbar spine with lumbar radiculopathy symptoms Plan:: Patient has requested to undergo a neurosurgical evaluation. She does have a spinal cord stimulator in place which is no longer giving her relief. She is not interested in intrathecal therapy. We will give her 5-day dose of prednisone 20 mg 1 tablet p.o. twice daily for 5 days. We will send her for neurosurgical evaluation. She has had lumbar epidural steroid injections as well as medial branch blocks and RFA's with no relief. We will follow-up with her after her neurosurgical evaluation to discuss further plan of care. Patient has been instructed to contact the clinic with any concerns before the next appointment. Dr. Vidal has reviewed this note and agrees with this plan of care. This note was dictated using voice recognition software and make contain errors or omissions. [facility] [place] History I have reviewed the patient's past medical history: Yes Medical History: Denies:: Cancer, Diabetes Mellitus Type 1, Diabetes Mellitus Type 2, Internal Pacemaker, MRSA, Seizures *Have you ever received a pneumonia vaccine?: No *Have you received a flu vaccine this season?: No Other Medical History: Denies: Blood Transfusion Reaction Laterality Cases: Bilateral: Tonsillectomy Other Surgeries: Yes: Dilation and Curettage, Diagnostic Lap. No: No Previous Surgery, Colonoscopy, Pacemaker Amputation: No Fractures: No - *Social History Smoking Status: Current every day smoker Tobacco Type: cigarettes # Packs/Day (cigarettes): 1 Alcohol Intake: never Substance Use Type: marijuana *Occupational Status:: other Housing: house Household Members: spouse *Travel in the last 8 weeks: None Family Hx:: Hypertension, Heart Attack
== END ==
PROVIDERS: PCP Emergency Medicine; Visit Provider Clinical Nurse Specialist Family Health
DX: M51.16 Intervertebral disc disorders with radiculopathy, lumbar region (principal)
CPT/HCPCS: 99212; G0463

== ENCOUNTER 2021-04-26 18:10 | Emergency (ER) | payer MEDICAID, SELFPAY ==
[2021-04-26 18:11] VITALS: BP 152/96; PULSE 67; RESP 20; TEMP 36.6; O2SAT 98; BMI 27.4
--- NOTE | 2021-04-26 18:28 | HMH.EDABDPAI ---
ED Disposition Clinical Impression: Gastroenteritis Disposition: Home, Self-Care Condition on Discharge: Good Instructions: Viral Gastroenteritis Prescriptions: Ondansetron [Zofran 4mg ODT] 4 mg PO Q6HP PRN #30 tab.rapdis PRN Reason: Nausea Transmission Status: Pending to Guide Dicyclomine HCl [Bentyl 10mg capsule] 10 mg PO Q8HP PRN #30 cap PRN Reason: abdominal pain Transmission Status: Pending to Guide Referrals: Nasir Mensah MD [Primary Care Provider] - - Critical Care Critical Care Time: No Attestation: On 04/26/21, the high probability of a clinically significant, sudden or life threatening deterioration of the following system(s) required my full and direct attention, intervention and personal management. The time I documented below is in addition to time spent performing reported procedures but includes the following listed in this critical care notation. Medical Decision Making - Medical Records Medical records reviewed: Yes: I reviewed the patient's medical records. - Nikolai Inquiry Pt receiving controlled substance: No Vital Signs: 04/26/21 18:11 04/26/21 18:54 Temperature 97.8 F Temperature Source Oral Pulse Rate 96 H Pulse Rate [Radial] 67 Respiratory Rate 20 16 Blood Pressure 109/66 L Blood Pressure [Right Arm] 152/96 H Blood Pressure Mean [Right Arm] 114 Blood Pressure Position [Right Arm] Sitting 02 Sat by Pulse Oximetry 98 95 Oxygen Delivery Method Room Air Room Air - Lab Data Lab results reviewed: Yes: I reviewed the patient's lab results. Lab Results 04/26/21 18:41: Urine Color Yellow, Urine Appearance Cloudy, Urine pH >= 9.0 H, Ur Specific Jet 1.015, Urine Protein 1+, Urine Glucose (UA) Negative, Urine Ketones 1+, Urine Blood Negative, Urine Nitrate Negative, Urine Bilirubin Negative, Urine Urobilinogen 0.2, Ur Leukocyte Esterase Negative, Urine WBC 3-5, Ur Squamous Epith Cells 20-50, Amorphous Sediment 2+, Urine Bacteria 3+ 04/26/21 18:41: WBC 12.7 H, RBC 4.86, Hgb 14.7, Hct 44.9, MCV 92.5, MCH 30.2, MCHC 32.7, RDW 14.2, Plt Count 199, MPV 9.4, Neut % (Auto) 84.5 H, Lymph % (Auto) 12.2, [place] % (Auto) 2.2, Eos % (Auto) 1.0, Baso % (Auto) 0.2, Neut # (Auto) 10.7 H, Lymph # (Auto) 1.5, [place] # (Auto) 0.3, Eos # (Auto) 0.1, Baso # (Auto) 0.0 04/26/21 18:41: Sodium 142, Potassium 3.9, Chloride 105, Carbon Dioxide 25, Anion Gap 15.9 H, BUN 11, Creatinine 0.50 L, Estimated Creat Clear 159, Estimated GFR 136, Est GFR ( Amer) 165, Glucose 109 H, Calcium 9.8, Total Bilirubin 0.7, AST 28, ALT 18, Alkaline Phosphatase 84, Total Protein 8.2, Albumin 4.9, Globulin 3.3 H, Albumin/Globulin Ratio 1.5, Lipase 106 04/26/21 18:41: Urine HCG, Qual Negative Result diagrams: 04/26/21 18:41 04/26/21 18:41 Orders (Tests/Meds): ED MEDICATIONS Generic Name Dose Route Start Last Admin Trade Name Freq PRN Reason Stop Dose Admin Sodium Chloride 1,000 mls @ 999 mls/hr 04/26/21 18:30 04/26/21 18:35 Sod Chlor 0.9% 1000ml Bag IV 04/26/21 19:30 999 mls/hr .Q1H1M THELMA Administration Sodium Chloride 10 ml 04/26/21 18:30 Sodium Chloride 0.9% 10ml Vial IV 05/26/21 18:29 NEEDED PRN dilute protonix Discontinued Medications Generic Name Dose Route Start Last Admin Trade Name Freq PRN Reason Stop Dose Admin Dicyclomine HCl 20 mg 04/26/21 18:30 04/26/21 18:48 Dicyclomine 20 Mg/2ml Vial IM 04/26/21 18:31 20 mg ONCE ONE Administration Ondansetron HCl 4 mg 04/26/21 18:22 04/26/21 18:35 Ondansetron 4mg/2ml Vial IV 04/26/21 18:23 4 mg ONCE ONE Administration Pantoprazole Sodium 40 mg 04/26/21 18:30 04/26/21 18:35 Pantoprazole 40mg Vial IV 04/26/21 18:31 40 mg ONCE ONE Administration ORDERS Category Date Time Status Urine Culture Stat Micro 04/26/21 18:41 Received Abdominal Pain HPI - General Chief Complaint: Abdominal Pain Stated Complaint: vomiting Time Seen by Provider:
[2021-04-26 18:43] LABS: Microscopic, Urine URINE MICROSCOPIC (MICROSCOPIC)
[2021-04-26 18:45] LABS: Appearance,Urine CLOUDY (Clear); Basophils % 0.2 % (0.1-2.0); Bilirubin,Urine Negative (Negative); Blood, Urine Negative (Negative); Color,Urine YELLOW (Yellow); Eosinophils # 0.1 K/mm3 (0.0-0.4); Glucose,Urine (UA) Negative (Negative); Hematocrit 44.9 % (37.0-47.0); Hemoglobin 14.7 g/dL (12.2-16.2); Ketones,Urine 1+ (Negative); Leukocyte Esterase,Urine Negative (Negative); Lymphocytes # 1.5 K/mm3 (0.7-4.5); Lymphocytes % 12.2 % (10-50); Mean Corpuscular HGB Conc 32.7 g/dL (31.8-35.4); Mean Corpuscular Hemoglobin 30.2 pg (27.0-31.2); Mean Corpuscular Volume 92.5 fl (81-99); Mean Platelet Volume 9.4 fl (7.4-10.4); Monocytes # 0.3 K/mm3 (0.1-1.0); Monocytes % 2.2 % (1.7-9.3); Neutrophils # 10.7 K/mm3 (1.8-7.8); Neutrophils % 84.5 % (37.0-80.0); Nitrate,Urine Negative (Negative); Platelet Count 199 K/mm3 (142-424); Protein,Urine 1+ (Negative); Red Blood Count 4.86 M/mm3 (4.20-5.40); Red Cell Distribution Width 14.2 % (11.5-17.5); Specific Gravity, Urine 1.015 (1.005-1.030); Urobilinogen,Urine 0.2 EU/dl (0.2); White Blood Count 12.7 K/mm3 (4.8-10.8)
[2021-04-26 18:48] LABS: Urine Pregnancy, HCG Qual. Negative (Negative)
[2021-04-26 18:51] LABS: Amorphous Sediment,Urine 2+ /lpf; Bacteria,Urine 3+ /lpf; PH,Urine >= 9.0 (5.0-8.5); Squamous Epithelial Cell,Urine 20-50 #/hpf (0-5)
[2021-04-26 18:54] VITALS: BP 109/66; PULSE 96; RESP 16; O2SAT 95
[2021-04-26 18:55] LABS: Alanine Aminotransferase 18 U/L (12-78); Albumin Level 4.9 g/dl (3.5-5.0); Albumin/Globulin Ratio 1.5 (1.1-1.8); Alkaline Phosphatase 84 U/L (38-126); Anion Gap 15.9 mEq/L (5-15); Aspartate Amino Transferase 28 U/L (14-36); Bilirubin,Total 0.7 mg/dl (0.2-1.3); Blood Urea Nitrogen 11 mg/dl (7-17); Calcium 9.8 mg/dl (8.4-10.2); Carbon Dioxide 25 mmol/L (22.0-30.0); Chloride 105 mmol/L (98-107); Creatinine Clearance Estimated 159 mL/min (50-200); Estimated Glomerular Filt Rate 136 ml/min (>60); GFR (African American) 165 ML/MIN (>60); Globulin 3.3 g/dL (1.3-3.2); Glucose 109 mg/dl (74-100); Lipase 106 U/L (23-300); Potassium 3.9 mmoL/L (3.5-5.1); Sodium 142 mmol/L (136-145); Total Protein,Serum 8.2 g/dl (6.3-8.2)
[2021-04-26 19:17] VITALS: BP 105/57; PULSE 68; RESP 18; TEMP 36.8; O2SAT 99
== END 2021-04-26 19:20 | disposition home or self-care (01) ==
PROVIDERS: Emergency Provider Emergency Medicine; PCP Emergency Medicine
DX: K52.9 Noninfective gastroenteritis and colitis, unspecified (principal); F17.210 Nicotine dependence, cigarettes, uncomplicated
CPT/HCPCS: 80053; 81001; 81025; 83690; 85025; 87086; 96365; 96375; 99282; J2405

== ENCOUNTER 2021-04-28 11:33 | Emergency (ER) | payer MEDICAID, SELFPAY ==
[2021-04-28 11:46] VITALS: BP 162/110; PULSE 64; RESP 16; TEMP 36.6; O2SAT 100; BMI 27.8
[2021-04-28 12:00] VITALS: PULSE 60; O2SAT 100
--- NOTE | 2021-04-28 12:05 | CT_ITS ---
PROCEDURE: CT ABDOMEN PELVIS W CON CLINICAL INDICATION: Low abdominal pain x 3 days COMPARISON: CT CT ABDOMEN PELVIS W CON from 05/21/2019 TECHNIQUE: Axial images obtained with sagittal and coronal reformats. All CT scans at the facility use one or more dose reduction, viz: automated exposure control, ma/kV adjustment per patient size (including targeted exams where dose is matched to indication, i.e. head), or iterative reconstruction technique. FINDINGS: LOWER THORAX: Calcified granuloma in the right lower lobe. Otherwise unremarkable HEPATOBILIARY: Liver: No focal hepatic lesions. There is minor periportal edema noted. Gallbladder: The gallbladder is unremarkable Biliary: No intrahepatic or extrahepatic ductal dilation. PANCREAS: No focal masses or ductal dilatation. SPLEEN:No splenomegaly. ADRENALS:No adrenal nodules. KIDNEYS/URETERS/BLADDER: No hydronephrosis, stones, or solid mass lesions are seen in the visualized portions of the kidneys. PERITONEUM / RETROPERITONEUM: Small amount of free fluid is noted in the pelvis. LYMPH NODES: No lymphadenopathy GI TRACT: There is evidence of minor wall thickening with the evidence of mucosal enhancement and minor adjacent inflammatory changes, predominantly in the transverse and sigmoid colon, raises the concern for mild/early colitis. The ascending colon is unremarkable. The small bowel loops are not unremarkable and under distended. Appendicoliths is noted. The appendix wall is normal in size measuring 6 millimeters. Small amount of fluid is noted in the right lower quadrant. The visualized pelvic structures demonstrate no focal abnormality. Focal hypodense areas are noted in the adnexa bilaterally, likely represents ovaries. VASCULAR: The aorta is normal in caliber, without evidence of abdominal aortic aneurysm or dissection. ABDOMINAL WALL: Intact SOFT TISSUES: Neural stimulator device is noted in the left posterior paraspinal soft tissues with the leads extending cranially within the posterior epidural space, outside the field of few of the current study. BONES: Unremarkable. IMPRESSION: Wall thickening of the transverse, descending, sigmoid colon and rectum with the minor mucosal enhancement and adjacent inflammatory changes, raises the concern for early/mild colitis. Small amount of free fluid is noted in the abdomen and pelvis. Appendicoliths is noted. The appendicular wall thickness is within normal limits. Trace fluid noted in the right lower quadrant. No other secondary signs of appendicitis. Minor periportal edema is noted, non-specific. Dictated by: Sofia Morris 04/28/2021 13:49 Sofia Morris in [facility] 04/28/2021 13:49
--- NOTE | 2021-04-28 12:07 | HMH.EDGENADL ---
ED Disposition Clinical Impression: Colitis Disposition: Home, Self-Care Condition on Discharge: Good Instructions: DI for Diarrhea and Traveler's Diarrhea -- Adult, DI for Diarrhea and Traveler's Diarrhea -- Child, DI for Nausea -- Adult, DI for Nausea -- Child Prescriptions: Amoxicillin/Potassium Clav [Augmentin 875-125 Tablet] 1 tab PO Q12H #10 tab Transmission Status: Pending to [facility] Promethazine HCl [Phenergan 25mg tab] 25 mg PO Q6H PRN #10 tab PRN Reason: Nausea And Vomiting Transmission Status: Pending to [facility] Referrals: Nasir Mensah MD [Primary Care Provider] - - Critical Care Critical Care Time: No Attestation: On 04/28/21, the high probability of a clinically significant, sudden or life threatening deterioration of the following system(s) required my full and direct attention, intervention and personal management. The time I documented below is in addition to time spent performing reported procedures but includes the following listed in this critical care notation. Medical Decision Making - Nikolai Inquiry Pt receiving controlled substance: No Vital Signs: 04/28/21 11:46 04/28/21 12:00 04/28/21 12:31 Temperature 97.8 F Temperature Source Oral Pulse Rate 60 58 L Pulse Rate [Left Radial] 64 Respiratory Rate 16 Blood Pressure 149/77 H Blood Pressure [Right Arm] 162/110 H Blood Pressure Mean 113 Blood Pressure Mean [Right Arm] 127 Blood Pressure Source [Right Arm] Automatic Cuff Blood Pressure Position [Right Arm] Sitting 02 Sat by Pulse Oximetry 100 100 100 Oxygen Delivery Method Room Air - Lab Data Lab Results 04/28/21 11:50: WBC 12.3 H, RBC 5.02, Hgb 15.2, Hct 46.7, MCV 93.0, MCH 30.3, MCHC 32.5, RDW 14.3, Plt Count 194, MPV 9.6, Neut % (Auto) 78.5, Lymph % (Auto) 17.2, [place] % (Auto) 3.6, Eos % (Auto) 0.3, Baso % (Auto) 0.4, Neut # (Auto) 9.6 H, Lymph # (Auto) 2.1, [place] # (Auto) 0.5, Eos # (Auto) 0.0, Baso # (Auto) 0.0 04/28/21 11:50: Sodium 142, Potassium 3.8, Chloride 107, Carbon Dioxide 26, Anion Gap 12.8, BUN 5 L D, Creatinine 0.60, Estimated Creat Clear 134, Estimated GFR 110, Est GFR ( Amer) 133, Glucose 96, Calcium 9.4 04/28/21 11:50: Serum HCG, Qual Negative 04/28/21 12:22: Lactate 1.3 04/28/21 14:30: Urine Color Yellow, Urine Appearance Clear, Urine pH 6.5, Ur Specific [place] 1.010, Urine Protein Negative, Urine Glucose (UA) Negative, Urine Ketones Negative, Urine Blood Negative, Urine Nitrate Negative, Urine Bilirubin Negative, Urine Urobilinogen 0.2, Ur Leukocyte Esterase Negative Result diagrams: 04/28/21 11:50 04/28/21 11:50 Orders (Tests/Meds): ED MEDICATIONS Generic Name Dose Route Start Last Admin Trade Name Freq PRN Reason Stop Dose Admin Sodium Chloride 10 ml 04/28/21 13:13 04/28/21 13:13 Sodium Chloride 0.9% 10ml Syr (Rad Only) IV 05/28/21 13:12 10 ml NEEDED PRN Administration Maintain IV Site Discontinued Medications Generic Name Dose Route Start Last Admin Trade Name Freq PRN Reason Stop Dose Admin Sodium Chloride 1,000 mls @ 999 mls/hr 04/28/21 12:00 04/28/21 11:57 Sod Chlor 0.9% 1000ml Bag IV 04/28/21 13:00 999 mls/hr .Q1H1M THELMA Administration Iopamidol 75 ml 04/28/21 13:13 04/28/21 13:14 Iopamidol-370 (76%);100ml Bottle IV 04/28/21 13:14 75 ml ONCE ONE Administration Ondansetron HCl 4 mg 04/28/21 11:52 04/28/21 11:57 Ondansetron 4mg/2ml Vial IV 04/28/21 11:53 4 mg ONCE ONE Administration ORDERS Category Date Time Status Urinalysis and Microscopic Stat Lab 04/28/21 14:30 Results Medical Decision Narrative: Patient to ED today for evaluation of nausea vomiting lower abdominal pain. Patient appears nauseous on examination, is not frankly. Significant abdomen is not acutely surgical, differential diagnosis includes , ovarian torsion, bowel perforation, intra-abdominal infection, status. Will further evaluate
[2021-04-28 12:24] LABS: Basophils % 0.4 % (0.1-2.0); Eosinophils % 0.3 % (0.1-12.0); Hematocrit 46.7 % (37.0-47.0); Hemoglobin 15.2 g/dL (12.2-16.2); Lymphocytes # 2.1 K/mm3 (0.7-4.5); Lymphocytes % 17.2 % (10-50); Mean Corpuscular HGB Conc 32.5 g/dL (31.8-35.4); Mean Corpuscular Hemoglobin 30.3 pg (27.0-31.2); Mean Platelet Volume 9.6 fl (7.4-10.4); Monocytes # 0.5 K/mm3 (0.1-1.0); Monocytes % 3.6 % (1.7-9.3); Neutrophils # 9.6 K/mm3 (1.8-7.8); Neutrophils % 78.5 % (37.0-80.0); Platelet Count 194 K/mm3 (142-424); Red Blood Count 5.02 M/mm3 (4.20-5.40); Red Cell Distribution Width 14.3 % (11.5-17.5); White Blood Count 12.3 K/mm3 (4.8-10.8)
[2021-04-28 12:31] VITALS: BP 149/77; PULSE 58; O2SAT 100
[2021-04-28 12:33] LABS: Chloride 107 mmol/L (98-107); Potassium 3.8 mmoL/L (3.5-5.1); Sodium 142 mmol/L (136-145)
[2021-04-28 12:36] LABS: Anion Gap 12.8 mEq/L (5-15); Blood Urea Nitrogen 5 mg/dl (7-17); Calcium 9.4 mg/dl (8.4-10.2); Carbon Dioxide 26 mmol/L (22.0-30.0); Creatinine Clearance Estimated 134 mL/min (50-200); Estimated Glomerular Filt Rate 110 ml/min (>60); GFR (African American) 133 ML/MIN (>60); Glucose 96 mg/dl (74-100)
[2021-04-28 12:51] LABS: HCG Qualitative, Serum Negative (Negative)
[2021-04-28 12:52] LABS: Lactic Acid 1.3 mmol/L (0.7-2.1)
[2021-04-28 14:41] LABS: Microscopic, Urine URINE MICROSCOPIC (MICROSCOPIC)
[2021-04-28 14:44] VITALS: BP 140/98; PULSE 58; O2SAT 100
[2021-04-28 14:45] LABS: Appearance,Urine CLEAR (Clear); Bilirubin,Urine Negative (Negative); Blood, Urine Negative (Negative); Color,Urine YELLOW (Yellow); Glucose,Urine (UA) Negative (Negative); Ketones,Urine Negative (Negative); Leukocyte Esterase,Urine Negative (Negative); Nitrate,Urine Negative (Negative); PH,Urine 6.5 (5.0-8.5); Protein,Urine Negative (Negative); Urobilinogen,Urine 0.2 EU/dl (0.2)
[2021-04-28 15:00] VITALS: BP 147/102; PULSE 65; O2SAT 99
[2021-04-28 15:15] LABS: Squamous Epithelial Cell,Urine Occasional #/hpf (0-5)
[2021-04-28 15:18] VITALS: BP 147/90; PULSE 76; RESP 20; TEMP 36.6; O2SAT 98
== END 2021-04-28 15:21 | disposition home or self-care (01) ==
PROVIDERS: Emergency Provider Student in an Organized Health Care Education/Training Program; PCP Emergency Medicine
DX: K52.9 Noninfective gastroenteritis and colitis, unspecified (principal); F17.210 Nicotine dependence, cigarettes, uncomplicated
CPT/HCPCS: 74177; 80048; 81001; 83605; 84703; 85025; 96365; 99283; J2405; Q9967

== ENCOUNTER → 2021-08-27 19:40 | Outpatient (CLI) | payer MEDICAID, SELFPAY ==
[2021-08-27 19:56] LABS: Basophils # 0.1 K/mm3 (0-0.2); Eosinophils # 0.1 K/mm3 (0.0-0.4); Eosinophils % 1.2 % (0.1-12.0); Hematocrit 48.6 % (37.0-47.0); Hemoglobin 15.3 g/dL (12.2-16.2); Lymphocytes # 2.8 K/mm3 (0.7-4.5); Lymphocytes % 35.2 % (10-50); Mean Corpuscular HGB Conc 31.5 g/dL (31.8-35.4); Mean Corpuscular Hemoglobin 31.5 pg (27.0-31.2); Mean Corpuscular Volume 99.9 fl (81-99); Mean Platelet Volume 10.8 fl (7.4-10.4); Monocytes # 0.4 K/mm3 (0.1-1.0); Monocytes % 5.6 % (1.7-9.3); Neutrophils # 4.5 K/mm3 (1.8-7.8); Neutrophils % 56.9 % (37.0-80.0); Platelet Count 268 K/mm3 (142-424); Red Blood Count 4.86 M/mm3 (4.20-5.40); Red Cell Distribution Width 14.1 % (11.5-17.5); White Blood Count 7.8 K/mm3 (4.8-10.8)
[2021-08-27 20:09] LABS: Alanine Aminotransferase 17 U/L (12-78); Albumin Level 4.4 g/dl (3.5-5.0); Albumin/Globulin Ratio 1.5 (1.1-1.8); Alkaline Phosphatase 88 U/L (38-126); Anion Gap 14.3 mEq/L (5-15); Aspartate Amino Transferase 27 U/L (14-36); Bilirubin,Total 0.2 mg/dl (0.2-1.3); Blood Urea Nitrogen 8 mg/dl (7-17); Calcium 9.8 mg/dl (8.4-10.2); Carbon Dioxide 29 mmol/L (22.0-30.0); Chloride 107 mmol/L (98-107); Chol/HDL Ratio 3.3 (1-3.5); Cholesterol 144 mg/dl (140-200); Estimated Glomerular Filt Rate 92 ml/min (>60); GFR (African American) 112 ML/MIN (>60); Glucose 108 mg/dl (74-100); HDL Cholesterol 43 mg/dl (40-60); Potassium 4.3 mmoL/L (3.5-5.1); Sodium 146 mmol/L (136-145); Total Protein,Serum 7.4 g/dl (6.3-8.2); Triglycerides 134 mg/dl (30-150); VLDL Cholesterol 27 mg/dL (0-40)
[2021-08-27 20:21] LABS: Direct LDL Cholesterol 72.12 mg/dL (100-129)
[2021-08-27 20:26] LABS: Free T4 (Free Thyroxine) 1.18 ng/dl (0.78-2.19)
[2021-08-27 20:27] LABS: 25-OH Vitamin D, Total 35.6 ng/mL (30-100)
[2021-08-27 20:41] LABS: Thyroid Stimulating Hormone 2.61 uIU/mL (0.465-4.68)
[2021-08-27 21:15] LABS: Erythrocyte Sedimentation Rate 7 mm/hr (0-20)
== END ==
PROVIDERS: Visit Provider Emergency Medicine
DX: R10.9 Unspecified abdominal pain (principal); E55.9 Vitamin D deficiency, unspecified
CPT/HCPCS: 80053; 80061; 82306; 84439; 84443; 85025; 85651

== ENCOUNTER → 2021-09-24 16:08 | Outpatient (CLI) | payer MEDICAID, SELFPAY ==
--- NOTE | 2021-09-24 16:08 | MM_ITS ---
PROCEDURE INFORMATION: Exam: MG Bilateral Screening 3D Mammography Exam date and time: 09/24/2021 4:08 PM Age: 40 years old Clinical indication: Encounter for screening mammogram for malignant neoplasm of breast TECHNIQUE: Imaging protocol: Bilateral screening tomosynthesis and 2D mammography including computer-aided detection (CAD) when performed. COMPARISON: No relevant prior studies available. FINDINGS: MAMMOGRAPHY: Breast composition: The breast tissue is heterogeneously dense, which may obscure small masses. Mass: None. Architectural distortion: None. Calcifications: No suspicious calcifications. Asymmetric density: None. Skin thickening: None. Axillary adenopathy: None. IMPRESSION: No mammographic evidence of malignancy. Annual screening is recommended unless otherwise clinically indicated. ASSESSMENT: BI-RADS Category 1: Negative
== END ==
PROVIDERS: PCP Emergency Medicine; Visit Provider Emergency Medicine
DX: Z12.31 Encounter for screening mammogram for malignant neoplasm of breast (principal)
CPT/HCPCS: 77063; 77067

== ENCOUNTER → 2021-12-01 11:32 | Outpatient (POV) | payer MEDICAID, SELFPAY ==
[2021-12-01 12:00] VITALS: BP 144/85; PULSE 114; RESP 18; O2SAT 99; BMI 27.4
--- NOTE | 2021-12-01 12:34 | P.CONS_ITS ---
[facility] Pain Management SOAP Note Subjective:: Patient is a very pleasant 41-year-old white female who presents today for follow-up. She is currently being treated for degenerative disease of lumbar spine and lumbar radiculopathy. She has a [employer] stimulator but she states that she is continuing to experience pain despite reprogramming. Of note, the patient has undergone multiple lumbar epidural steroid injections the past, as well as medial branch blocks and RFA's with very minimal pain relief. We have previously discussed intrathecal therapy but the patient is reluctant to proceed with this therapy. He was recently evaluated by her primary care physician who started her on [place] 5 mg 1 tablet p.o. twice daily as needed. She states that this medication is helping manage her chronic pain symptoms. She states that the pain is ongoing in her low back and down her legs. She rates her pain today as a 4 out of 10. Objective:: General: Alert and oriented x3, no acute distress, pleasant and cooperative Lungs: Resps E/U, symmetric chest expansion Eyes: PERRL Musculoskeletal: limited flexion and extension of the lumbar spine secondary to pain. Deep tendon reflexes were normal in bilateral lower extremities. Motor exam was grossly intact in the bilateral lower extremities, antalgic gait noted. 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 Should she continue to experience ongoing uncontrolled pain despite optimization of her stimulator I discussed with the patient that intrathecal therapy may be a good next option. We will continue to closely monitor and further discussed with the next clinic visit in 1 month. [facility] #[id number] was reviewed and appropriate. ORT was performed on the patient which deemed the patient to be low risk [facility] History Medical History: Denies:: Cancer, Diabetes Mellitus Type 1, Diabetes Mellitus Type 2, Internal Pacemaker, MRSA, Seizures *Have you ever received a pneumonia vaccine?: No *Have you received a flu vaccine this season?: No Other Medical History: Denies: Blood Transfusion Reaction Laterality Cases: Bilateral: Tonsillectomy Other Surgeries: Yes: Dilation and Curettage, Diagnostic Lap. No: No Previous Surgery, Colonoscopy, Pacemaker Amputation: No Fractures: No - *Social History Smoking Status: Current every day smoker Tobacco Type: cigarettes # Packs/Day (cigarettes): 1 Alcohol Intake: never Substance Use Type: marijuana *Occupational Status:: unemployed Housing: house Household Members: spouse *Travel in the last 8 weeks: None Family Hx:: Hypertension, Heart Attack
== END ==
PROVIDERS: Visit Provider Anesthesiology Pain Medicine
DX: M51.16 Intervertebral disc disorders with radiculopathy, lumbar region (principal)
CPT/HCPCS: 99212; G0463

== ENCOUNTER → 2021-12-29 11:03 | Outpatient (POV) | payer MEDICAID, SELFPAY ==
[2021-12-29 11:46] VITALS: BP 132/88; PULSE 97; RESP 20; TEMP 36.6; O2SAT 99; BMI 26.5
--- NOTE | 2021-12-29 14:43 | P.CONS_ITS ---
[facility] Pain Management SOAP Note Subjective:: Patient is a pleasant 42-year-old female who presents today for follow-up. Patient is currently being treated for degenerative disc disease of the lumbar spine with lumbar radiculopathy symptoms. She has a [employer] spinal cord stimulator that is helping manage her low back pain and radiating pain. However, she feels like she is needing some reprogramming. She will schedule with one of the [employer] passenger representative for a reprogramming. She denies any other issues with the spinal cord stimulator. In the past, she has had medial branch blocks and RFA's with very minimal relief. She rates her pain today as 4 out of 10. General: No recent weight changes, no fever, no sleep disturbances Respiratory: No cough, no shortness of air, no recurring pulmonary infections Cardiovascular/peripheral vascular: No chest pain, no palpitations, no edema, no shortness of breath Gastrointestinal: No new onset incontinence, normal bowel movements reported Genitourinary: No new onset incontinence Musculoskeletal: Low back pain Psychiatric: [Normal mood/affect] Neurological: [Denies weakness in extremities], [denies balance issues] Objective:: General: Alert and oriented x3, no acute distress, pleasant and cooperative, [on room air] Lungs: Respirations even and unlabored, symmetrical chest expansion Eyes: PERRL Musculoskeletal: Flexion and extension of lumbar [spine] somewhat guarded secondary to pain, [antalgic gait noted] Neurological: Speech clear, no gross sensory deficit Assessment:: Degenerative disc disease of the lumbar spine with lumbar radiculopathy symptoms Plan:: Patient is doing well so far with her [employer] spinal cord stimulator. Patient will schedule a reprogramming date with one of the [employer] passenger representative. Patient has no other complaints today. Patient has been instructed to contact the clinic with any concerns before the next appointment. Dr. Vidal has reviewed this note and agrees with this plan of care. This note was dictated using voice recognition software and make contain errors or omissions. [facility] History Medical History: Denies:: Cancer, Diabetes Mellitus Type 1, Diabetes Mellitus Type 2, Internal Pacemaker, MRSA, Seizures *Have you ever received a pneumonia vaccine?: No *Have you received a flu vaccine this season?: No Other Medical History: Denies: Blood Transfusion Reaction Laterality Cases: Bilateral: Tonsillectomy Other Surgeries: Yes: Dilation and Curettage, Diagnostic Lap. No: No Previous Surgery, Colonoscopy, Pacemaker Amputation: No Fractures: No - *Social History Smoking Status: Current every day smoker Tobacco Type: cigarettes # Packs/Day (cigarettes): 1 Alcohol Intake: never Substance Use Type: marijuana *Occupational Status:: employed Housing: house Household Members: spouse *Travel in the last 8 weeks: None Family Hx:: Hypertension, Heart Attack
== END ==
PROVIDERS: Visit Provider Student in an Organized Health Care Education/Training Program
DX: M51.16 Intervertebral disc disorders with radiculopathy, lumbar region (principal)
CPT/HCPCS: 99212; G0463

== ENCOUNTER → 2022-01-20 09:43 | Outpatient (POV) | payer MEDICAID, SELFPAY ==
[2022-01-20 09:51] VITALS: BP 140/98; PULSE 126; RESP 20; TEMP 36.7; O2SAT 100; BMI 27.2
--- NOTE | 2022-01-20 10:24 | HMH.PAINSOAP ---
[facility] Pain Management SOAP Note Subjective:: Pleasant 41-year-old white female that comes to our clinic today for a spinal cord stimulator reprogrammed. Patient is complaining regarding lumbar back pain as well as bilateral radiculopathy symptoms in her lower extremities. She reports this pain is constant. Never goes away. She rates the pain 8/10. After the spinal cord stimulator rep spent some time with the patient reprogramming she rates her pain 2/10. She states pain is much better. Patient is receiving 5 mg [place] twice daily from Dr. Mensah. Her Nikolai request #[id number] was reviewed and appropriate. Objective:: Alert oriented x3. No acute distress. Flexion-extension lumbar spine somewhat guarded secondary to pain. Deep tendon reflexes upper lower extremities normal. Motor strength upper and lower extremities normal. There is no gross sensory deficit. Gait is normal. Assessment:: Degenerative disc disease lumbar spine multilevels. Lumbar radiculopathy symptoms. Plan:: Patient was reprogrammed today and feels much better in the low back as well as bilateral hip and leg. Patient will follow up with us in 2 months unless she needs us prior to that appointment. [facility] History Medical History: Denies:: Cancer, Diabetes Mellitus Type 1, Diabetes Mellitus Type 2, Internal Pacemaker, MRSA, Seizures *Have you ever received a pneumonia vaccine?: No *Have you received a flu vaccine this season?: No Other Medical History: Denies: Blood Transfusion Reaction Laterality Cases: Bilateral: Tonsillectomy Other Surgeries: Yes: Dilation and Curettage, Diagnostic Lap. No: No Previous Surgery, Colonoscopy, Pacemaker Amputation: No Fractures: No - *Social History Smoking Status: Current every day smoker Tobacco Type: cigarettes # Packs/Day (cigarettes): 1 Alcohol Intake: never Substance Use Type: marijuana *Occupational Status:: unemployed Housing: house Household Members: spouse *Travel in the last 8 weeks: None Family Hx:: Hypertension, Heart Attack
== END ==
PROVIDERS: Visit Provider Nurse Anesthetist, Certified Registered
DX: M51.16 Intervertebral disc disorders with radiculopathy, lumbar region (principal)
CPT/HCPCS: 99212; G0463

== ENCOUNTER → 2022-03-19 07:28 | Outpatient (CLI) | payer MEDICAID, SELFPAY ==
[2022-03-18 18:12] LABS: Amphetamine/Metha Screen,Urine Negative ng/ml (<1000)
[2022-03-18 18:13] LABS: Barbiturates Screen,Urine Negative ng/ml (<200); Cannabinoid Screen,Urine Positive ng/ml (<50)
[2022-03-18 18:14] LABS: Benzodiazepines Screen,Urine Negative ng/ml (<200); Cocaine Screen,Urine Negative ng/ml (<300)
[2022-03-18 18:15] LABS: Methadone Screen,Urine Negative ng/ml (<300)
[2022-03-18 18:16] LABS: Opiate Screen,Urine Positive ng/ml (<300); Phencyclidine Screen,Urine Negative ng/ml (<25)
== END ==
PROVIDERS: PCP Emergency Medicine; Visit Provider Emergency Medicine
DX: Z79.899 Other long term (current) drug therapy (principal)
CPT/HCPCS: 80305

== ENCOUNTER → 2022-03-23 10:02 | Outpatient (POV) | payer MEDICAID, SELFPAY ==
[2022-03-23 11:27] VITALS: BP 137/92; PULSE 98; RESP 18; TEMP 36.6; O2SAT 98; BMI 27.4
--- NOTE | 2022-03-23 12:27 | HMH.PAINSOAP ---
[facility] Pain Management SOAP Note Subjective:: Patient is a pleasant 42-year-old female who presents today for a 2-month follow-up. Patient is current being treated for degenerative disease of lumbar spine with lumbar radiculopathy symptoms. Patient is currently being managed with a [employer] spinal cord stimulator. Today, patient states that she has been having worsening low back pain that radiates to bilateral lower extremities. She has been having trouble getting up from a sitting position. She cannot tolerate any prolonged activity such as sitting, standing, and walking. In the past, she has reached out to the [employer] representatives for reprogramming. She states that she has had significant relief after each reprogramming. She feels like she is needing another reprogramming today. She rates her pain today as 4 out of 10. For pain, she is prescribed [place] 5 mg twice a day by Dr. Mensah. Nikolai [phone] with an active morphine equivalent of 10. Review of Systems: General: No recent weight changes, no fever, no sleep disturbances Respiratory: No cough, no shortness of air, no recurring pulmonary infections Cardiovascular/peripheral vascular: No chest pain, no palpitations, no edema, no shortness of breath Gastrointestinal: No new onset incontinence, normal bowel movements reported Genitourinary: No new onset incontinence Musculoskeletal: Low back pain, bilateral hip pain Psychiatric: [Normal mood/affect] Neurological: [Denies weakness in extremities], [denies balance issues] Objective:: Physical Exam: General: Alert and oriented x3, no acute distress, pleasant and cooperative Lungs: Respirations even and unlabored, symmetrical chest expansion Eyes: PERRL Musculoskeletal: Flexion and extension of lumbar [spine] somewhat guarded secondary to pain, [antalgic gait noted]; tenderness to palpation around the lower lumbar paraspinous muscles. Bilateral SI are positive for MAKENNA, Consuelo's, [place]'s, [place]'s, compression, and distraction. Tenderness palpation on bilateral greater trochanteric bursa. Neurological: Speech clear, no gross sensory deficit Assessment:: Degenerative disc disease of lumbar spine with lumbar radiculopathy symptoms, myofascial pain, bilateral sacroiliitis, bilateral greater trochanteric bursitis Plan:: Patient presents today with worsening low back pain that radiates to bilateral lower extremities. Patient is tender to palpation around the lower bilateral lumbar paraspinous muscles. We will schedule the patient for trigger point injections around this area. Risks and benefits of the procedure have been explained to the patient. Patient would like to proceed with the procedure. Patient is also positive for bilateral SI exam and has tenderness to palpation on bilateral greater trochanteric bursa. At her next appointment, we will schedule the patient for a bilateral SI injection and possibly bilateral greater trochanteric bursa. I will also start the patient on diclofenac 75 mg twice a day to help with some of her joint pains. Patient can take this medication with [place]. Patient needs to take this medication with meals every time. Patient has been instructed to contact the clinic with any concerns before the next appointment. Dr. Vidal has reviewed this note and agrees with this plan of care. This note was dictated using voice recognition software and make contain errors or omissions. [facility] History Medical History: Denies:: Cancer, Diabetes Mellitus Type 1, Diabetes Mellitus Type 2, Internal Pacemaker, MRSA, Seizures *Have you ever received a pneumonia vaccine?: No *Have you received a flu vaccine this season?: No Other Medical History: Denies: Blood Transfusion Reaction Laterality Cases: Bilateral: Tonsillectomy Other Surgeries: Yes: Dilation and Curettage, Diagnostic Lap. No: No Previous Surgery, Colonoscopy, Pacemaker Amputation: No Fractures: No - *Social History Smoking Status: James
== END ==
PROVIDERS: Visit Provider Student in an Organized Health Care Education/Training Program
DX: M51.16 Intervertebral disc disorders with radiculopathy, lumbar region (principal); M79.18 Myalgia, other site; M70.61 Trochanteric bursitis, right hip; M70.62 Trochanteric bursitis, left hip; M46.1 Sacroiliitis, not elsewhere classified
CPT/HCPCS: 99212; G0463

== ENCOUNTER 2022-03-27 07:54 | Day surgery (SDC) | payer MEDICAID, SELFPAY ==
[2022-03-27 08:02] VITALS: BP 129/93; PULSE 102; RESP 18; TEMP 36.4; O2SAT 99; BMI 27.4
[2022-03-27 08:12] VITALS: BP 133/94; PULSE 86; RESP 20
[2022-03-27 08:21] VITALS: BP 121/89; PULSE 83; RESP 20; O2SAT 98
--- NOTE | 2022-03-27 08:22 | P.PCN_ITS ---
- Procedure Date: 03/27/22 Time: 08:22 Anesthesiologist:: Glenn Alvarado CRNA Complications:: None Pre-procedure Diagnosis:: Myofascial pain paraspinous lumbar lateral Post-procedure Diagnosis:: Myofascial pain lumbar paraspinous bilateral Indications for Procedure:: Pleasant 41-year-old white female presents today for injections in her bilateral lumbar paraspinous. She rates her pain 7 out of 10. Patient states the pain is dull aching. Pain worse while standing. Procedure Details:: Details of the procedure were explained to the patient. Patient was placed in the sitting position and on the fluoroscopy table. The area over the lumbar spine was cleansed with chlorhexidine solution. Using a solution of 40 mg Depo- Medrol, 5 mL of of 1% lidocaine and 0.25 of Marcaine 5 cc. Over 3 separate areas over the left paraspinous muscle 2 cc of the solution was injected at each site after negative aspiration. Same procedure was carried out on the right. Patient tolerated the procedure without difficulty. No complications. Plan and Disposition:: Patient was discharged without incident.
== END 2022-03-27 08:22 | disposition home or self-care (01) ==
LOC: SC.PAINP 07:54
PROVIDERS: PCP Emergency Medicine; Visit Provider Nurse Anesthetist, Certified Registered
DX: M79.18 Myalgia, other site (principal); M60.9 Myositis, unspecified
CPT/HCPCS: 20552; J1040

== ENCOUNTER → 2022-04-09 14:12 | Outpatient (POV) | payer MEDICAID, SELFPAY ==
[2022-04-09 16:35] VITALS: BP 130/79; PULSE 92; RESP 18; TEMP 36.7; O2SAT 98; BMI 26.9
--- NOTE | 2022-04-09 21:40 | HMH.PAINSOAP ---
[facility] Pain Management SOAP Note Subjective:: Patient is a pleasant 42-year-old female who presents today for follow-up after trigger point injections around the lumbar paraspinous area on March 27, 2022. Patient is currently being treated for degenerative disc disease of lumbar spine with lumbar radiculopathy symptoms, myofascial pain, sacroiliitis, greater trochanteric bursitis. Patient has a [employer] spinal cord stimulator. She has done well with the stimulator. She feels like she needs some reprogramming. After her trigger point injections, patient states that she had significant relief of 60 to 70% around her low back. She still has some tenderness around the midline and bilateral upper buttocks. She still cannot tolerate any full activity such as sitting, standing, and walking. When I last saw this patient, I started her on diclofenac 75 mg twice a day. She states that this medication is not helping her pain. She is also prescribed [place] by an outside provider. Rates her pain today as 4 out of 10. [facility] [phone] with an active morphine equivalent of 7. Review of Systems: General: No recent weight changes, no fever, no sleep disturbances Respiratory: No cough, no shortness of air, no recurring pulmonary infections Cardiovascular/peripheral vascular: No chest pain, no palpitations, no edema, no shortness of breath Gastrointestinal: No new onset incontinence, normal bowel movements reported Genitourinary: No new onset incontinence Musculoskeletal: Low back pain, bilateral hip pain Psychiatric: [Normal mood/affect] Neurological: [Denies weakness in extremities], [denies balance issues] Objective:: Physical Exam: General: Alert and oriented x3, no acute distress, pleasant and cooperative Lungs: Respirations even and unlabored, symmetrical chest expansion Eyes: PERRL Musculoskeletal: Flexion and extension of lumbar [spine] somewhat guarded secondary to pain, [antalgic gait noted]; bilateral SI are positive for [place], Consuelo's, [place]'s, [place]'s, compression, and distraction. She has tenderness palpation around the bilateral greater trochanteric bursa Neurological: Speech clear, no gross sensory deficit Assessment:: Degenerative disc disease of lumbar spine with lumbar radiculopathy symptoms, myofascial pain, bilateral sacroiliitis, bilateral greater trochanteric bursitis Plan:: Patient continues to have a positive SI exam bilaterally. Patient has tenderness to palpation around the bilateral SI joints. We will schedule the patient for a bilateral SI injection. Patient also has tenderness to palpation around the bilateral greater trochanteric bursa. We will consider scheduling the patient for the bursa injections at her next follow-up. We will not continue her diclofenac since it was not helping the patient. In regards to her stimulator, we will reach out to one of the [employer] representatives to see if they can contact this patient. Patient is also wanting to get updated lumbar MRI. She has not had any MRI in a while. She says that it was because of her stimulator. It is as one of the representatives to see if her stimulator is MRI compatible. I was told that she is a had an MRI only and she does not have the alpha SCS. She did have a lumbar CT in 2020. We will not order any updated imaging at this time. Patient has been instructed to contact the clinic with any concerns before the next appointment. Dr. Vidal has reviewed this note and agrees with this plan of care. This note was dictated using voice recognition software and make contain errors or omissions. [facility] History Medical History: Denies:: Cancer, Diabetes Mellitus Type 1, Diabetes Mellitus Type 2, Internal Pacemaker, MRSA, Seizures *Have you ever received a pneumonia vaccine?: No *Have you received a flu vaccine this season?: No Other Medical History: Denies: Blood Transfusion Reaction Laterality Cases: Bilateral: Tonsillectomy Other Surgeries: Yes: D
== END ==
PROVIDERS: Visit Provider Student in an Organized Health Care Education/Training Program
DX: M51.16 Intervertebral disc disorders with radiculopathy, lumbar region (principal); M46.1 Sacroiliitis, not elsewhere classified; M70.61 Trochanteric bursitis, right hip; M70.62 Trochanteric bursitis, left hip; M79.10 Myalgia, unspecified site
CPT/HCPCS: 99212; G0463

== ENCOUNTER 2022-04-21 10:18 | Day surgery (SDC) | payer MEDICAID, SELFPAY ==
[2022-04-21 10:28] VITALS: BP 127/91; PULSE 95; RESP 18; TEMP 36.4; O2SAT 99; BMI 27.4
[2022-04-21 10:35] VITALS: BP 120/74; PULSE 74; RESP 18; O2SAT 98
--- NOTE | 2022-04-21 10:47 | P.PCN_ITS ---
- Procedure Date: 04/21/22 Time: 10:47 Anesthesiologist:: Glenn Alvarado CRNA Complications:: None Pre-procedure Diagnosis:: Bilateral sacroiliitis Post-procedure Diagnosis:: Same Indications for Procedure:: Patient is a very pleasant 42-year-old female who comes our clinic today for bilateral SI joint injections. She has extreme point tenderness over the bilateral SI joints. She rates her pain 6/10. Procedure Details:: Procedure: Bilateral sacroiliac joint injections under fluoroscopy Informed consent was obtained and the risks and benefits of the procedure were explained to the patient.~ The patient was taken to the procedure room and noninvasive monitors were placed including a noninvasive blood pressure cuff and pulse oximeter.~ The patient was placed prone on the procedure table. Both hips were cleansed using Betadine as a cleansing solution. C-arm fluoroscopy was used to view the right sacroiliac joint.~ The skin and subcutaneous tissues were anesthetized using lidocaine 1.5% and a 25-gauge needle.~ After this, a 22-gauge spinal needle was inserted under fluoroscopic guidance into the inferior aspect of the right sacroiliac joint.~ Omnipaque dye was injected and good spread was seen throughout the joint.~ After this, approximately 5 mL of bupivacaine, 0.25% and Depo-Medrol, 40 mg was incrementally injected into the right sacroiliac joint. We then moved to the left sacroiliac joint.~ The skin and subcutaneous tissues were anesthetized using lidocaine 1.5% and a 25-gauge needle.~ After this, a 22- gauge spinal needle was inserted under fluoroscopic guidance into the inferior aspect of the left sacroiliac joint.~ Omnipaque dye was injected and good spread was seen throughout the joint. After this, approximately 5 mL of bupivacaine, 0.25% and Depo-Medrol, 40 mg was incrementally injected into the left sacroiliac joint.~ The patient tolerated the procedure well with no complications. The patient was observed in the Pain Clinic and then was discharged home neurologically intact. Plan and Disposition:: Patient was discharged without incident.
[2022-04-21 10:51] VITALS: BP 128/88; PULSE 80; RESP 20; O2SAT 100
== END 2022-04-21 10:51 | disposition home or self-care (01) ==
LOC: SC.PAINP 10:19
PROVIDERS: PCP Emergency Medicine; Visit Provider Nurse Anesthetist, Certified Registered
DX: M46.1 Sacroiliitis, not elsewhere classified (principal)
CPT/HCPCS: 27096; 76000; G0260; J1030

== ENCOUNTER → 2022-05-11 12:57 | Outpatient (POV) | payer MEDICAID, SELFPAY ==
[2022-05-11 13:19] VITALS: BP 142/98; PULSE 90; RESP 18; TEMP 36.6; O2SAT 98; BMI 27.1
--- NOTE | 2022-05-11 13:19 | HMH.PAINSOAP ---
[facility] Pain Management SOAP Note Subjective:: Patient is a pleasant 42-year-old female who presents today for follow-up of bilateral SI injections on 04/21/2022. We are currently treating the patient for bilateral sacroiliitis, degenerative disc disease of lumbar spine with lumbar radiculopathy symptoms, myofascial pain, greater trochanteric bursitis. Patient states that she has had significant relief from her SI injections. She stated that this injection helped for at least 1 week with minimal 50% improvement in her hips and leg symptoms. She describes her pain today a 4 out of 10. She states this pain is in her low back region. She describes it as a ache, throbbing sensation that is worse with increased activity. Patient denies any new trauma or injury to the site. She states that she has had this pain for several years however it just seems that it has worsened over time. Patient does have a [employer] spinal cord stimulator in place that she has done well with. Patient does manage her pain with Wake 5 mg twice a day that is written by Dr. Mensah. She denies any side effects of this medication. Patient states that her last visit she was going to get a MRI of her lumbar spine however her stimulator is incompatible. Patient is interested in scheduling repeat SI injections. Her Nikolai is [phone]. It has been reviewed and appropriate. Review of Systems: General: No recent weight changes, no fever, no sleep disturbances Respiratory: No cough, no shortness of air, no recurring pulmonary infections Cardiovascular/peripheral vascular: No chest pain, no palpitations, no edema, no shortness of breath Gastrointestinal: No new onset incontinence, normal bowel movements reported Genitourinary: No new onset incontinence Musculoskeletal: Low back pain Psychiatric: [Normal mood/affect] Neurological: [Denies weakness in extremities], [denies balance issues] Objective:: Physical Exam: General: Alert and oriented x3, no acute distress, pleasant and cooperative Lungs: Respirations even and unlabored, symmetrical chest expansion Eyes: PERRL Musculoskeletal: Flexion and extension of lumbar [spine] somewhat guarded secondary to pain, [antalgic gait noted]. Point tenderness at lumbar spine. Positive Aelssandra's, compression, distraction, Gaenslen's test Neurological: Speech clear, no gross sensory deficit Assessment:: Degenerative disc disease of lumbar spine with lumbar radiculopathy symptoms, myofascial pain, sacroiliitis, greater trochanteric bursitis Plan:: Patient had 50% improvement in her hips and her legs from her SI injection. Patient had a positive point tenderness in her lumbar spine along with positive Alessandra's, compression, distraction, Gaenslen's test during today's exam. I have discussed with the patient regarding having repeat SI injections. Risk and benefits were discussed with the patient. She would like to proceed forward with these injections. I will order the patient a compounding cream at today's visit. I will also order a CT of her lumbar spine. We will schedule the patient for a bilateral SI injection at today's visit. Patient has been instructed to contact the clinic with any concerns before the next appointment. Dr. Vidal has reviewed this note and agrees with this plan of care. This note was dictated using voice recognition software and make contain errors or omissions. [facility] History I have reviewed the patient's past medical history: Yes Medical History: Denies:: Cancer, Diabetes Mellitus Type 1, Diabetes Mellitus Type 2, Internal Pacemaker, MRSA, Seizures *Have you ever received a pneumonia vaccine?: No *Have you received a flu vaccine this season?: No Other Medical History: Reports: Arthritis. Denies: Blood Transfusion Reaction Laterality Cases: Bilateral: Tonsillectomy Other Surgeries: Yes: Dilation and Curettage, Diagnostic Lap. No: No Previous Surgery, Colonoscopy, Pacemaker Amputation: No Fractures: No - *Social
== END ==
PROVIDERS: PCP Emergency Medicine; Visit Provider Student in an Organized Health Care Education/Training Program
DX: M51.16 Intervertebral disc disorders with radiculopathy, lumbar region (principal); M46.1 Sacroiliitis, not elsewhere classified; M79.18 Myalgia, other site; M70.60 Trochanteric bursitis, unspecified hip
CPT/HCPCS: 99212; G0463

== ENCOUNTER 2022-05-18 22:33 | Observation (INO) | payer MEDICAID, SELFPAY ==
[2022-05-18 22:42] VITALS: BP 114/66; PULSE 76; RESP 18; TEMP 36.9; O2SAT 97; BMI 27.4
--- NOTE | 2022-05-18 22:47 | CT_ITS ---
PROCEDURE INFORMATION: Exam: CT Abdomen And Pelvis Without Contrast Exam date and time: 05/18/2022 10:57 PM Age: 41 years old Clinical indication: Abdominal pain; Localized; Prior surgery; Surgery type: Cord stimulator; Patient HX: Bilat flank pain, lower abd pain TECHNIQUE: Imaging protocol: Computed tomography of the abdomen and pelvis without contrast. Radiation optimization: All CT scans at this facility use at least one of these dose optimization techniques: automated exposure control; mA and/or kV adjustment per patient size (includes targeted exams where dose is matched to clinical indication); or iterative reconstruction. COMPARISON: CT ABDOMEN PELVIS W CON 04/28/2021 1:05 PM FINDINGS: Lungs: Granulomatous calcification in the peripheral right lung base. Peripheral reticulonodular densities in the lateral left lung base which may represent chronic reticulonodular changes of prior granulomatous disease, with a calcified granuloma measuring 2.5 mm on series 3, image 1. Alternatively, mild changes of small airways disease could produce this appearance, consider chronic atypical infection or chronic non infectious bronchiolitis. No consolidations. Heart: Heart size normal. Mediastinal space: The visualized distal esophagus is largely contracted without gross abnormality. Liver: Normal contour. No mass lesions. No intrahepatic biliary ductal dilatation. Gallbladder and bile ducts: Normal. No calcified stones. No ductal dilation. Pancreas: Normal. No inflammatory changes or ductal dilation. Spleen: Normal. No splenomegaly. Adrenal glands: Normal. No adrenal mass. Kidneys and ureters: No acute abnormalities. No hydronephrosis or hydroureter. No urinary tract stones are identified. Stomach and bowel: The stomach is unremarkable. The small bowel is nondilated with no gross abnormality. The distal colon is largely contracted. There is mild wall thickening in the descending colon through the rectum with faint adjacent stranding, suspicious for colitis. No evidence of perforation or abscess. There are few distal colonic diverticula present without diverticulitis. Appendix: The appendix is normal in caliber and demonstrates no evidence of appendicitis. Intraperitoneal space: No free fluid or air. Vasculature: No acute process. No abdominal aortic aneurysm. Lymph nodes: No adenopathy. Urinary bladder: The bladder is largely contracted without gross abnormality. Reproductive: Uterus and left ovary are unremarkable. Right ovary contains an 18 mm hypodense focus measuring 0 Hounsfield units consistent with an incidental follicle, within physiologic range. Bones/joints: No acute osseous abnormalities. Chronic unilateral right-sided L5 spondylolysis without listhesis. Moderate disc degenerative changes L5-S1 with moderate bilateral foraminal stenosis. Spinal stimulator unit in the subcutaneous tissues of the left mid back with thoracic stimulator leads extending in the dorsal spinal canal off the superior margin of the scan range without gross hardware complication. Soft tissues: Unremarkable. IMPRESSION: 1. Findings suspicious for mild colitis involving the distal colon. No evidence of perforation or abscess. 2. Mild distal colonic diverticulosis without diverticulitis. 3. Spinal stimulator partially visualized without complication. 4. Peripheral reticulonodular densities in the lateral left lung base, possibly chronic reticulonodular changes of prior granulomatous disease although cannot exclude chronic small airways disease, consider chronic atypical infection. 5. Chronic right-sided unilateral L5 spondylolysis with moderate disc degenerative c
[2022-05-18 22:50] LABS: Microscopic, Urine URINE MICROSCOPIC (MICROSCOPIC)
--- NOTE | 2022-05-18 22:55 | PC.NURSE ---
pt's IV started with ultrasound @ this time. labs and urine sent
[2022-05-18 22:58] LABS: Bilirubin,Urine Negative (Negative); Blood, Urine Negative (Negative); Color,Urine YELLOW (Yellow); Glucose,Urine (UA) Negative (Negative); Ketones,Urine 2+ (Negative); Leukocyte Esterase,Urine Negative (Negative); Nitrate,Urine Negative (Negative); Protein,Urine 2+ (Negative); Specific Gravity, Urine 1.015 (1.005-1.030); Urobilinogen,Urine 0.2 EU/dl (0.2)
[2022-05-18 22:58] LABS: Coronavirus 19, PCR Not Detected (NotDetected); Influenza A, PCR Not Detected (NotDetected); Influenza B, PCR Not Detected (NotDetected)
[2022-05-18 23:02] LABS: Basophils # 0.1 K/mm3 (0-0.2); Basophils % 0.5 % (0.1-2.0); Eosinophils # 0.2 K/mm3 (0.0-0.4); Eosinophils % 1.4 % (0.1-12.0); Hematocrit 51.8 % (37.0-47.0); Hemoglobin 15.7 g/dL (12.2-16.2); Lymphocytes # 1.2 K/mm3 (0.7-4.5); Lymphocytes % 9.4 % (10-50); Mean Corpuscular HGB Conc 30.3 g/dL (31.8-35.4); Mean Corpuscular Hemoglobin 30.7 pg (27.0-31.2); Mean Corpuscular Volume 101.3 fl (81-99); Mean Platelet Volume 10.2 fl (7.4-10.4); Monocytes # 0.2 K/mm3 (0.1-1.0); Monocytes % 1.8 % (1.7-9.3); Neutrophils # 10.7 K/mm3 (1.8-7.8); Neutrophils % 86.8 % (37.0-80.0); Platelet Count 248 K/mm3 (142-424); Red Blood Count 5.12 M/mm3 (4.20-5.40); Red Cell Distribution Width 14.3 % (11.5-17.5); White Blood Count 12.3 K/mm3 (4.8-10.8)
[2022-05-18 23:10] LABS: Alanine Aminotransferase 29 U/L (12-78); Albumin Level 5.1 g/dl (3.5-5.0); Albumin/Globulin Ratio 1.2 (1.1-1.8); Alkaline Phosphatase 121 U/L (38-126); Amylase 96 U/L (30-110); Anion Gap 13.7 mEq/L (5-15); Aspartate Amino Transferase 37 U/L (14-36); Blood Urea Nitrogen 10 mg/dl (7-17); Calcium 10.6 mg/dl (8.4-10.2); Carbon Dioxide 26 mmol/L (22.0-30.0); Chloride 104 mmol/L (98-107); Creatinine Clearance Estimated 131 mL/min (50-200); Estimated Glomerular Filt Rate 110 ml/min (>60); GFR (African American) 133 ML/MIN (>60); Globulin 4.1 g/dL (1.3-3.2); Glucose 114 mg/dl (74-100); Lipase 141 U/L (23-300); Potassium 3.7 mmoL/L (3.5-5.1); Sodium 140 mmol/L (136-145); Total Protein,Serum 9.2 g/dl (6.3-8.2)
[2022-05-18 23:13] LABS: Appearance,Urine Cloudy (Clear)
[2022-05-18 23:14] LABS: MANUAL DIFFERENTIAL MANUAL DIFFERENTIAL (MANUAL DIFF)
[2022-05-18 23:14] LABS: Amorphous Sediment,Urine 1+ /lpf; Bacteria,Urine 4+ /lpf; RBC,Urine Occasional #/hpf (0-3); Squamous Epithelial Cell,Urine 20-50 #/hpf (0-5); WBC,Urine Occasional #/hpf (0-3)
[2022-05-18 23:16] LABS: C-Reactive Protein 2.9 mg/L (0-4)
[2022-05-18 23:30] LABS: Procalcitonin < 0.030 ng/mL (0.0-2.0)
[2022-05-18 23:33] LABS: Erythrocyte Sedimentation Rate 7 mm/hr (0-20)
[2022-05-19] VITALS (8 sets, daily range): BP systolic 100–136; BP diastolic 69–87; PULSE 55–77; RESP 17–21; TEMP 36.6–36.9; O2SAT 98–100; BMI 28.8
[2022-05-19 00:07] LABS: Lymphocytes % 18 % (10-50); Macrocytosis 1+; Monocytes % 1 % (2-9); Neutrophils % 81 % (42-76); Platelet Estimate Normal; Total Cells Counted 100
--- NOTE | 2022-05-19 00:08 | HMH.EDNVD ---
ED Disposition Clinical Impression: Colitis, Overweight (BMI 25.0-29.9), Tobacco use, Lumbar spondylosis, Status post insertion of spinal cord stimulator, SIRS (systemic inflammatory response syndrome) Disposition: Admitted As Inpatient Condition on Discharge: Fair - Critical Care Critical Care Time: No Attestation: On 05/18/22, the high probability of a clinically significant, sudden or life threatening deterioration of the following system(s) required my full and direct attention, intervention and personal management. The time I documented below is in addition to time spent performing reported procedures but includes the following listed in this critical care notation. Medical Decision Making - Medical Records Medical records reviewed: Yes: I reviewed the patient's medical records. - Nikolai Inquiry Pt receiving controlled substance: No Vital Signs: 05/18/22 22:42 05/19/22 00:17 Temperature 98.4 F Temperature Source Oral Pulse Rate 77 Pulse Rate [Apical] 76 Respiratory Rate 18 21 Blood Pressure 100/69 L Blood Pressure [Right Arm] 114/66 Blood Pressure Mean 77 Blood Pressure Mean [Right Arm] 82 Blood Pressure Source [Right Arm] Automatic Cuff Blood Pressure Position [Right Arm] Sitting 02 Sat by Pulse Oximetry 97 98 Oxygen Delivery Method Room Air - Lab Data Lab results reviewed: Yes: I reviewed the patient's lab results. Lab Results 05/18/22 22:30: Urine Color Yellow, Urine Appearance Cloudy, Urine pH 8.0, Ur Specific [place] 1.015, Urine Protein 2+, Urine Glucose (UA) Negative, Urine Ketones 2+, Urine Blood Negative, Urine Nitrate Negative, Urine Bilirubin Negative, Urine Urobilinogen 0.2, Ur Leukocyte Esterase Negative, Urine RBC Occasional, Urine WBC Occasional, Ur Squamous Epith Cells 20-50, Amorphous Sediment 1+, Urine Bacteria 4+ 05/18/22 22:40: SARS-CoV-2 (PCR) Not detected, Influenza A Untype (PCR) Not detected, Influenza Type B (PCR) Not detected 05/18/22 22:52: WBC 12.3 H, RBC 5.12, Hgb 15.7, Hct 51.8 H, MCV 101.3 H, MCH 30.7, MCHC 30.3 L, RDW 14.3, Plt Count 248, MPV 10.2, Neut % (Auto) 86.8 H, Lymph % (Auto) 9.4 L, [place] % (Auto) 1.8, Eos % (Auto) 1.4, Baso % (Auto) 0.5, Neut # (Auto) 10.7 H, Lymph # (Auto) 1.2, [place] # (Auto) 0.2, Eos # (Auto) 0.2, Baso # (Auto) 0.1, Total Counted 100, Neutrophils % (Manual) 81 H, Lymphocytes % (Manual) 18, Monocytes % (Manual) 1 L, Platelet Estimate Normal, RBC Morphology Not Reportable, Macrocytosis 1+, ESR 7 05/18/22 22:52: Sodium 140, Potassium 3.7, Chloride 104, Carbon Dioxide 26, Anion Gap 13.7, BUN 10, Creatinine 0.60, Estimated Creat Clear 131, Estimated GFR 110, Est GFR ( Amer) 133, Glucose 114 H, Calcium 10.6 H, Total Bilirubin 1.0, AST 37 H, ALT 29, Alkaline Phosphatase 121, C-Reactive Protein 2.9, Total Protein 9.2 H, Albumin 5.1 H, Globulin 4.1 H, Albumin/Globulin Ratio 1.2, Amylase 96, Lipase 141, Procalcitonin < 0.030 Result diagrams: 05/18/22 22:52 05/18/22 22:52 Orders (Tests/Meds): ED MEDICATIONS Generic Name Dose Route Start Last Admin Trade Name Freq PRN Reason Stop Dose Admin Sodium Chloride 1,000 mls @ 999 mls/hr 05/18/22 23:00 05/18/22 22:49 Sod Chlor 0.9% 1000ml Bag IV 05/19/22 00:00 999 mls/hr .Q1H1M THELMA Administration Ceftriaxone Sodium 1 gm/ 50 mls @ 100 mls/hr 05/19/22 00:45 05/19/22 00:51 Sodium Chloride IV 06/02/22 00:44 100 mls/hr Q24H THELMA Administration Sodium Chloride 1,000 mls @ 999 mls/hr 05/19/22 00:45 05/19/22 00:51 Sod Chlor 0.9% 1000ml Bag IV 05/19/22 01:45 999 mls/hr .Q1H1M THELMA Administration Metronidazole 500 mg in 100 mls @ 100 mls/hr 05/19/22 00:45 Flagyl 500mg/100ml Ivpb IV 06/02/22 00:44 Q8H THELMA Promethazine HCl 25 mg 05/19/22 00:56 05/19/22 00:59 Promethazine Hcl 25mg/Ml 1ml Vial IV 06/18/22 00:55 25 mg Q4HP PRN Administration Nausea And Vomiting Sodium Chloride 25 ml 05/19/22 00:56 Sodium Chloride 0.9% 25ml Bag IV 06/18/22 00:5
--- NOTE | 2022-05-19 01:03 | PC.NURSE ---
Patient given IV pain medication and nausea medicine as ordered by MD. Patient tolerated the medication well.
[2022-05-19 01:05] LABS: Lactic Acid 1.2 mmol/L (0.7-2.1)
--- NOTE | 2022-05-19 01:29 | PC.NURSE ---
Attempted to call report at [phone]. No answer. Will call again.
--- NOTE | 2022-05-19 01:29 | PC.NURSE ---
Patient is resting in bed. States that the IV dilaudid made me feel a lot better .
--- NOTE | 2022-05-19 02:01 | PC.NURSE ---
PT ARRIVED TO FLOOR VIa w/c @ 1377
--- NOTE | 2022-05-19 04:00 | PC.NURSE ---
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
[2022-05-19 07:18] LABS: Basophils % 0.2 % (0.1-2.0); Eosinophils # 0.3 K/mm3 (0.0-0.4); Eosinophils % 1.9 % (0.1-12.0); Hematocrit 40.7 % (37.0-47.0); Lymphocytes # 2.1 K/mm3 (0.7-4.5); Lymphocytes % 14.8 % (10-50); Mean Corpuscular HGB Conc 31.4 g/dL (31.8-35.4); Mean Corpuscular Hemoglobin 31.7 pg (27.0-31.2); Mean Platelet Volume 11.5 fl (7.4-10.4); Monocytes # 0.7 K/mm3 (0.1-1.0); Monocytes % 4.8 % (1.7-9.3); Neutrophils # 11.3 K/mm3 (1.8-7.8); Neutrophils % 78.2 % (37.0-80.0); Platelet Count 171 K/mm3 (142-424); Red Blood Count 4.03 M/mm3 (4.20-5.40); Red Cell Distribution Width 14.3 % (11.5-17.5); White Blood Count 14.4 K/mm3 (4.8-10.8)
--- NOTE | 2022-05-19 07:30 | HMH.PHAVTE ---
[facility] Pharmacy VTE Monitoring - Patient Demographics Admission date: 05/19/22 Report Date: 05/19/22 Time: 07:30 Allergies/Adverse Reactions: Patient Allergies clindamycin Adverse Reaction (Verified 05/19/22 01:32) Nausea Height: 1.57 m Weight: 71 kg Patient Problems: Current Active Problems Lumbar spondylosis (Chronic) Colitis (Acute) Status post insertion of spinal cord stimulator (Acute) SIRS (systemic inflammatory response syndrome) (Acute) Tobacco use (Acute) Overweight (BMI 25.0-29.9) (Acute) - VTE Risk Labs: VTE Related Lab Results Hgb 15.7 g/dL (12.2-16.2) 05/18/22 22:52 Hct 51.8 % (37.0-47.0) H 05/18/22 22:52 Plt Count 248 K/mm3 (142-424) 05/18/22 22:52 BUN 10 mg/dl (7-17) 05/18/22 22:52 Creatinine 0.60 mg/dl (0.52-1.04) 05/18/22 22:52 Estimated Creat Clear 131 mL/min (50-200) 05/18/22 22:52 Was VTE Risk Assessment Performed: Yes VTE Score: 1 VTE Risk Level: Very Low Risk Clinical Trial Participant: No - Prophylaxis VTE Prophylaxis Ordered?: Yes Types of VTE Prophylaxis: TEDS Knee High Location of Applied Device: Not Applicable
[2022-05-19 07:44] LABS: Anion Gap 11.5 mEq/L (5-15); Blood Urea Nitrogen 9 mg/dl (7-17); Calcium 8.6 mg/dl (8.4-10.2); Carbon Dioxide 20 mmol/L (22.0-30.0); Chloride 112 mmol/L (98-107); Creatinine Clearance Estimated 164 mL/min (50-200); Estimated Glomerular Filt Rate 135 ml/min (>60); GFR (African American) 164 ML/MIN (>60); Glucose 107 mg/dl (74-100); Potassium 3.5 mmoL/L (3.5-5.1); Sodium 140 mmol/L (136-145)
[2022-05-19 07:51] LABS: Hemoglobin 12.8 g/dL (12.2-16.2)
--- NOTE | 2022-05-19 09:32 | HMH.HP ---
*Admission Date: 05/19/22 *Chief complaint: Abdominal pain *History of present illness: 42-year-old female patient presented to the [facility] emergency department with reports increasing bilateral flank pain for several days, nausea and vomiting today and also reports headache and dizziness today. Abdomen/pelvis CT revealed findings suspicious for mild colitis involving the distal colon, no evidence of perforation or abscess.. White blood cell count 12.5, respiratory rate 21 In the emergency department she received 1 g of ceftriaxone, 500 mg of Flagyl, Dilaudid, a liter of normal saline with a maintenance rate. [facility] History I have reviewed the patient's past medical history: Yes Medical History: Denies:: Cancer, Diabetes Mellitus Type 1, Diabetes Mellitus Type 2, Internal Pacemaker, MRSA, Seizures *Have you ever received a pneumonia vaccine?: No *Have you received a flu vaccine this season?: No Other Medical History: Reports: Arthritis. Denies: Blood Transfusion Reaction Laterality Cases: Bilateral: Tonsillectomy Other Surgeries: Yes: Dilation and Curettage, Diagnostic Lap, Tubal Ligation, Other. No: No Previous Surgery, Colonoscopy, Pacemaker Amputation: No Fractures: No - *Social History Last grade of school completed: 9th or 10th Smoking Status: Current every day smoker Tobacco Type: cigarettes # Packs/Day (cigarettes): 1 Alcohol Intake: never Substance Use Type: marijuana *Occupational Status:: unemployed Housing: house Household Members: spouse, children *Travel in the last 8 weeks: None Family Hx:: No significant family history Review of Systems - Review of Systems Review of systems:: pertinent systems reviewed and negative unless documented below - Constitutional Reports fatigue, Denies anorexia, Denies fever(s) - Eyes Denies blurry vision, Denies double vision - ENT Denies dizziness, Denies difficulty swallowing - *Cardiovascular Denies chest pain, Denies chest pain at rest, Denies shortness of breath - *Respiratory Denies chest congestion, Denies cough - *Gastrointestinal Reports abdominal pain, Reports nausea, Reports vomiting, Denies vomiting blood, Denies black, tarry stools - *Musculoskeletal Reports back pain, Denies joint pain, Denies radiating pain into limb - *Neurologic Denies headache(s), Denies seizure-like activity - Psychiatric Denies confusion, Denies hopelessness - Endocrine Denies cold intolerance, Denies increased thirst - Hematologic/Lymphatic Denies easy bleeding, Denies enlarged lymph nodes - Allergic/Immunologic Reports throat swelling, Denies GI upset with certain foods Meds Home Medications Medication Instructions Recorded Confirmed Type hydrocodone 5 mg-acetaminophen 325 1 tab PO BID #60 tab 03/18/22 05/19/22 Rx mg tablet Diclofenac Sodium [Diclofenac 75mg 75 mg PO BID 03/27/22 05/19/22 History Tab] Allergies Allergy/AdvReac Type Severity Reaction Status Date / Time clindamycin AdvReac Nausea Verified 05/19/22 01:32 Exam Vital signs and Labs for Last 24 Hours: Temp Pulse Resp BP Pulse Ox 98.4 F 66 17 135/72 98 05/19/22 08:00 05/19/22 08:00 05/19/22 08:00 05/19/22 08:00 05/19/22 08:00 Laboratory Results - last 24 hr 05/18/22 22:30: Urine Color Yellow, Urine Appearance Cloudy, Urine pH 8.0, Ur Specific [place] 1.015, Urine Protein 2+, Urine Glucose (UA) Negative, Urine Ketones 2+, Urine Blood Negative, Urine Nitrate Negative, Urine Bilirubin Negative, Urine Urobilinogen 0.2, Ur Leukocyte Esterase Negative, Urine RBC Occasional, Urine WBC Occasional, Ur Squamous Epith Cells 20-50, Amorphous Sediment 1+, Urine Bacteria 4+ 05/18/22 22:40: SARS-CoV-2 (PCR) Not detected, Influenza A Untype (PCR) Not detected, Influenza Type B (PCR) Not detected 05/18/22 22:52: WBC 12.3 H, RBC 5.12, Hgb 15.7, Hct 51.8 H, MCV 101.3 H, MCH 30.7, MCHC 30.3 L, RDW 14.3, Plt Count 248, MPV 10.2, Neut % (Auto) 86.8 H, Lymph
--- NOTE | 2022-05-19 13:46 | PC.NURSE ---
rounded on patient who was resting in bed. she had no concerns or questions about plan of care. stated she did have family coming with clothes and would want a shower, requested towels and bath soap. showed patient the toiletries available and obtained extra towels. encouraged her to ring out when ready for shower so IV could be wrapped up. no other needs at this time. encouraged her to ring out as needed.
--- NOTE | 2022-05-19 18:39 | PC.NURSE ---
Patient VSS, ambulated outside of room, tolerated diet increase, tolerating fluids orally, denies n/v and pain. patient states I feel ready to go home. Shows no s/s of acute distress, call light within reach, bed at lowest level for safety; will continue to monitor.
[2022-05-20 04:00] VITALS: BP 127/79; PULSE 69; RESP 18; TEMP 37.1; O2SAT 98
--- NOTE | 2022-05-20 04:02 | PC.NURSE ---
pt has rested well this shift. she was given Tylenol one time this shift for moderate pain in abdomen and prn medication for nausea 1 time. see mar. pain and nausea were relieved. ns infusing at 125 ml/hr. lung sounds clear t/o. call light within reach, no needs at this time.
[2022-05-20 05:00] VITALS: BMI 29.6
[2022-05-20 06:37] LABS: Basophils # 0.1 K/mm3 (0-0.2); Basophils % 0.6 % (0.1-2.0); Eosinophils # 0.1 K/mm3 (0.0-0.4); Eosinophils % 1.1 % (0.1-12.0); Hematocrit 37.9 % (37.0-47.0); Hemoglobin 12.3 g/dL (12.2-16.2); Lymphocytes # 2.4 K/mm3 (0.7-4.5); Lymphocytes % 22.7 % (10-50); Mean Corpuscular HGB Conc 32.4 g/dL (31.8-35.4); Mean Corpuscular Hemoglobin 32.1 pg (27.0-31.2); Monocytes # 0.5 K/mm3 (0.1-1.0); Monocytes % 4.5 % (1.7-9.3); Neutrophils # 7.5 K/mm3 (1.8-7.8); Neutrophils % 71.1 % (37.0-80.0); Platelet Count 178 K/mm3 (142-424); Red Blood Count 3.83 M/mm3 (4.20-5.40); Red Cell Distribution Width 14.5 % (11.5-17.5); White Blood Count 10.5 K/mm3 (4.8-10.8)
[2022-05-20 06:45] LABS: Chloride 109 mmol/L (98-107)
[2022-05-20 06:46] LABS: Potassium 3.3 mmoL/L (3.5-5.1); Sodium 138 mmol/L (136-145)
[2022-05-20 06:48] LABS: Blood Urea Nitrogen 6 mg/dl (7-17); Creatinine Clearance Estimated 169 mL/min (50-200); Estimated Glomerular Filt Rate 135 ml/min (>60); GFR (African American) 164 ML/MIN (>60)
[2022-05-20 06:49] LABS: Anion Gap 8.3 mEq/L (5-15); Calcium 8.7 mg/dl (8.4-10.2); Carbon Dioxide 24 mmol/L (22.0-30.0); Glucose 104 mg/dl (74-100)
[2022-05-20 08:00] VITALS: BP 140/89; PULSE 57; RESP 18; TEMP 36.6; O2SAT 100
--- NOTE | 2022-05-20 09:19 | HMH.DCSUM ---
General - General Admission date:: 05/19/22 Discharge date: 05/20/22 HPI HPI: 42-year-old female patient presented to the [facility] emergency department with reports increasing bilateral flank pain for several days, nausea and vomiting today and also reports headache and dizziness today. Abdomen/pelvis CT revealed findings suspicious for mild colitis involving the distal colon, no evidence of perforation or abscess.. White blood cell count 12.5, respiratory rate 21 In the emergency department she received 1 g of ceftriaxone, 500 mg of Flagyl, Dilaudid, a liter of normal saline with a maintenance rate. Hospital Course Hospital Course: 42-year-old female patient presented to the [facility] emergency department with reports increasing bilateral flank pain for several days, nausea and vomiting today and also reports headache and dizziness today. 05/18/2022 abdomen/pelvis CT: FINDINGS: Lungs: Granulomatous calcification in the peripheral right lung base. Peripheral reticulonodular densities in the lateral left lung base which may represent chronic reticulonodular changes of prior granulomatous disease, with a calcified granuloma measuring 2.5 mm on series 3, image 1. Alternatively, mild changes of small airways disease could produce this appearance, consider chronic atypical infection or chronic non infectious bronchiolitis. No consolidations. Heart: Heart size normal. Mediastinal space: The visualized distal esophagus is largely contracted without gross abnormality. Liver: Normal contour. No mass lesions. No intrahepatic biliary ductal dilatation. Gallbladder and bile ducts: Normal. No calcified stones. No ductal dilation. Pancreas: Normal. No inflammatory changes or ductal dilation. Spleen: Normal. No splenomegaly. Adrenal glands: Normal. No adrenal mass. Kidneys and ureters: No acute abnormalities. No hydronephrosis or hydroureter. No urinary tract stones are identified. Stomach and bowel: The stomach is unremarkable. The small bowel is nondilated with no gross abnormality. The distal colon is largely contracted. There is mild wall thickening in the descending colon through the rectum with faint adjacent stranding, suspicious for colitis. No evidence of perforation or abscess. There are few distal colonic diverticula present without diverticulitis. Appendix: The appendix is normal in caliber and demonstrates no evidence of appendicitis. Intraperitoneal space: No free fluid or air. Vasculature: No acute process. No abdominal aortic aneurysm. Lymph nodes: No adenopathy. Urinary bladder: The bladder is largely contracted without gross abnormality. Reproductive: Uterus and left ovary are unremarkable. Right ovary contains an 18 mm hypodense focus measuring 0 Hounsfield units consistent with an incidental follicle, within physiologic range. Bones/joints: No acute osseous abnormalities. Chronic unilateral right-sided L5 spondylolysis without listhesis. Moderate disc degenerative changes L5-S1 with moderate bilateral foraminal stenosis. Spinal stimulator unit in the subcutaneous tissues of the left mid back with thoracic stimulator leads extending in the dorsal spinal canal off the superior margin of the scan range without gross hardware complication. Soft tissues: Unremarkable. IMPRESSION: 1. Findings suspicious for mild colitis involving the distal colon. No evidence of perforation or abscess. 2. Mild distal colonic diverticulosis without diverticulitis. 3. Spinal stimulator partially visualized without complication. 4. Peripheral reticulonodular densities in the lateral left lung base, possibly chronic reticulonodular changes of prior granulomatous disease although cannot exclude chronic small airways disease, consider chronic atypical infection. 5. Chronic right-sided unilateral L5 spondylolysis w
--- NOTE | 2022-05-21 15:19 | CARE MANAGER ---
Called and spoke with Padmini regarding post discharge status. Patient states that she is feeling some better, she was able to pharmacy picking technician her 2 prescriptions and has started taking them. She is aware of her f/u appt. and plans to attend. She has no known issues or concerns at this time.
== END 2022-05-20 10:30 | disposition home or self-care (01) | DRG 392 ==
LOC: ER 22:36 → 2ND 05-19 01:22
PROVIDERS: Nurse Practitioner Family; Admitting Provider Emergency Medicine; Emergency Provider Emergency Medicine; PCP Emergency Medicine; Visit Provider Emergency Medicine
DX: K52.9 Noninfective gastroenteritis and colitis, unspecified (principal); N39.0 Urinary tract infection, site not specified; G89.29 Other chronic pain; M54.9 Dorsalgia, unspecified; F17.210 Nicotine dependence, cigarettes, uncomplicated; B96.20 Unspecified Escherichia coli [E. coli] as the cause of diseases classified elsewhere
CPT/HCPCS: 36415; 74176; 80048; 80053; 81001; 82150; 83605; 83690; 84145; 85007; 85025; 85651; 86140; 87040; 87086; 87088; 87186; 99285; C9803; G0378; J0696; J2405; U0003; U0005

== ENCOUNTER → 2022-08-04 10:15 | Outpatient (CLI) | payer MEDICAID, SELFPAY ==
[2022-08-04 15:38] LABS: Amphetamine/Metha Screen,Urine Negative ng/ml (<1000); Barbiturates Screen,Urine Negative ng/ml (<200)
[2022-08-04 15:39] LABS: Benzodiazepines Screen,Urine Negative ng/ml (<200)
[2022-08-04 15:40] LABS: Cannabinoid Screen,Urine Positive ng/ml (<50)
[2022-08-04 15:41] LABS: Opiate Screen,Urine Negative ng/ml (<300)
[2022-08-04 15:42] LABS: Cocaine Screen,Urine Negative ng/ml (<300)
[2022-08-04 15:43] LABS: Methadone Screen,Urine Negative ng/ml (<300); Phencyclidine Screen,Urine Negative ng/ml (<25)
== END ==
PROVIDERS: PCP Emergency Medicine; Visit Provider Emergency Medicine
DX: Z79.899 Other long term (current) drug therapy (principal)
CPT/HCPCS: 80305

== ENCOUNTER → 2022-08-10 13:08 | Outpatient (POV) | payer MEDICAID, SELFPAY ==
[2022-08-10 13:34] VITALS: BP 141/113; PULSE 122; RESP 18; TEMP 36.7; O2SAT 96; BMI 26.5
--- NOTE | 2022-08-10 14:05 | EXP.PAIN.SOA ---
[facility] Pain Management SOAP Note Subjective:: Patient is a pleasant 41-year-old female who presents today for follow-up. We are currently treating the patient for bilateral sacroiliitis, degenerative disc disease of lumbar spine with lumbar radiculopathy symptoms, myofascial pain, greater trochanteric bursitis. Today the patient rates her pain a 5 out of 10. She states the pain is all in her low back that radiates into her bilateral lower extremities. Patient denies any new trauma or injury. She denies any change in location or type of pain she experiences. We have done injective therapy in the past for this patient that provided at least 50% improvement. She was previously scheduled for repeat SI injections back in May however the patient did come down with COVID and these had to be canceled. Patient is interested in rescheduling these injections. Recently she was prescribed compounding cream however she has not started this yet due to concerns with gabapentin in the cream. Patient does have a [employer] spinal cord stimulator in place that she has done well with. Patient states it has been a few months since she was reprogrammed. Patient is prescribed [place] 5 mg twice a day by Dr. Mensah's office. Patient denies any side effects from this medication. She states this medication does adequately help manage her pain symptoms. Her Nikolai is [id number] with a morphine equivalent of 0. It has been reviewed and appropriate. Review of Systems: General: No recent weight changes, no fever, no sleep disturbances Respiratory: No cough, no shortness of air, no recurring pulmonary infections Cardiovascular/peripheral vascular: No chest pain, no palpitations, no edema, no shortness of breath Gastrointestinal: No new onset incontinence, normal bowel movements reported Genitourinary: No new onset incontinence Musculoskeletal: Low back pain, bilateral leg pain Psychiatric: [Normal mood/affect] Neurological: [Denies weakness in extremities], [denies balance issues] Objective:: Physical Exam: General: Alert and oriented x3, no acute distress, pleasant and cooperative Lungs: Respirations even and unlabored, symmetrical chest expansion Eyes: PERRL Musculoskeletal: Flexion and extension of lumbar [spine] somewhat guarded secondary to pain, [antalgic gait noted]. Extreme point tenderness along bilateral SI's and positive bilateral Alessandra's, Consuelo's, Gaenslen's, compression and distraction exam Neurological: Speech clear, no gross sensory deficit Assessment:: Degenerative disc disease of lumbar spine with lumbar radiculopathy symptoms, myofascial pain, bilateral sacroiliitis, greater trochanteric bursitis Plan:: Patient is experiencing significant pain in her low back that radiates into her bilateral lower extremities. Patient did have limited range of motion of her lumbar spine along with extreme point tenderness at bilateral SI's and positive bilateral Alessandra's, Consuelo's, Gaenslen's, compression and distraction exam. I have discussed with the patient regarding scheduling her for repeat SI injections. Risk and benefits were discussed with the patient. She would like to proceed forward with this plan of care. Patient is not on any blood thinners. I have also counseled the patient that I will contact a [employer] fraud representative to see about reprogramming her spinal cord stimulator. Patient has been counseled regarding the compounding cream and that the gabapentin acts differently when prescribed as a topical. We will schedule the patient for bilateral SI injections. Patient has been instructed to contact the clinic with any concerns before the next appointment. Dr. Vidal has reviewed this note and agrees with this plan of care. This note was dictated using voice recognition software and make contain errors or omissions. [facility] Social History Smoking Status: Current every day smoker tobacco type: cigarett
== END ==
PROVIDERS: PCP Emergency Medicine; Visit Provider Nurse Practitioner Family
DX: M51.16 Intervertebral disc disorders with radiculopathy, lumbar region (principal); M46.1 Sacroiliitis, not elsewhere classified; M79.10 Myalgia, unspecified site; M70.60 Trochanteric bursitis, unspecified hip; Z72.0 Tobacco use
CPT/HCPCS: 99212; G0463

== ENCOUNTER → 2022-08-25 14:36 | Outpatient (POV) | payer MEDICAID, SELFPAY ==
[2022-08-25 14:49] VITALS: BP 138/92; PULSE 113; RESP 18; O2SAT 99; BMI 26.5
--- NOTE | 2022-08-25 14:49 | EXP.PAIN.SOA ---
[facility] Pain Management SOAP Note Subjective:: Patient is a pleasant 41-year-old female who presents today for follow-up. We are currently treating the patient for bilateral sacroiliitis, degenerative disc disease of lumbar spine with lumbar radiculopathy symptoms, myofascial pain, greater trochanteric bursitis. Today the patient rates her pain a 6 out of 10. Patient states her pain is all in her low back that radiates into her bilateral lower extremities. Patient states this is a aching, throbbing sensation that is worse with increased activity. Patient denies any new trauma or injury. Patient denies any change in location or type of pain she experiences. Patient has had injective therapy in the past that provided significant improvement of at least 50%. Patient has had SI injections in the past that did provide significant improvement however when her last ones were scheduled due to COVID numbers these had to be canceled. Patient is continuing to have the same pain she had previously and is interested in rescheduling these injections. Patient does state she is unable to do activities of daily living such as washing the dishes or light cleaning due to the pain. Patient states she cannot stand prolonged sitting or standing. Patient has been prescribed compounding cream that has provided some improvement of her symptoms. Patient does have a [employer] spinal cord stimulator in place that she continues to do well with. Patient has tried [id number] medications, heat and ice and physical therapy in the past. Patient continues to do at home exercising and stretching techniques for longer than 6 weeks with minimal improvement. Patient is currently prescribed [place] 5 mg twice a day from Dr. Mensah's office. Patient denies any side effects from this medication. She states this medication does help manage some of her pain symptoms. Her Nikolai is [id number]. It has been reviewed and appropriate. Review of Systems: General: No recent weight changes, no fever, no sleep disturbances Respiratory: No cough, no shortness of air, no recurring pulmonary infections Cardiovascular/peripheral vascular: No chest pain, no palpitations, no edema, no shortness of breath Gastrointestinal: No new onset incontinence, normal bowel movements reported Genitourinary: No new onset incontinence Musculoskeletal: Low back pain, bilateral hip/thigh pain Psychiatric: [Normal mood/affect] Neurological: [Denies weakness in extremities], [denies balance issues] Objective:: Physical Exam: General: Alert and oriented x3, no acute distress, pleasant and cooperative Lungs: Respirations even and unlabored, symmetrical chest expansion Eyes: PERRL Musculoskeletal: Flexion and extension of lumbar [spine] somewhat guarded secondary to pain, [antalgic gait noted]. Extreme point tenderness along bilateral SI and positive bilateral Alessandra's, Consuelo's, Gaenslen's, compression and distraction exam Neurological: Speech clear, no gross sensory deficit Assessment:: Degenerative disc disease of lumbar spine with lumbar radiculopathy symptoms, bilateral sacroiliitis, myofascial pain, greater trochanteric bursitis Plan:: Patient continues to experience significant pain in her low back that radiates into both her bilateral hips and thighs stopping at her knee. Patient did have limited range of motion of her lumbar spine during today's visit as well as extreme point tenderness along bilateral SI's and positive bilateral Alessandra's, Consuelo's, Gaenslen's, compression and distraction exam. The patient's last bilateral SI injections on 04/21/2022 provided significant improvement of her symptoms of at least 50% lasting short-term. I have discussed with the patient that she may benefit from another diagnostic bilateral SI injections. Risk and benefits were discussed with the patient. Patient is experiencing decreased functionality due to the pain she is experiencing and she would like to proceed forward with this pl
== END ==
PROVIDERS: PCP Emergency Medicine; Visit Provider Nurse Practitioner Family
DX: M51.16 Intervertebral disc disorders with radiculopathy, lumbar region (principal); M46.1 Sacroiliitis, not elsewhere classified; M70.60 Trochanteric bursitis, unspecified hip; M79.10 Myalgia, unspecified site; Z72.0 Tobacco use
CPT/HCPCS: 99212; G0463

== ENCOUNTER 2022-09-08 13:14 | Day surgery (SDC) | payer MEDICAID, SELFPAY ==
[2022-09-08 13:29] VITALS: BP 134/88; PULSE 109; RESP 18; TEMP 36.4; O2SAT 99; BMI 27.1
[2022-09-08 13:58] VITALS: BP 126/92; PULSE 84; RESP 18; O2SAT 98
[2022-09-08 13:59] VITALS: BP 126/92; PULSE 84; RESP 18; O2SAT 98
--- NOTE | 2022-09-08 14:03 | EXP.PAIN.PRO ---
Procedure Date: 09/08/22 Time: 14:03 Anesthesiologist:: Glenn Alvarado CRNA Complications:: None Pre-procedure Diagnosis:: Degenerative disc disease of lumbar spine with lumbar radiculopathy symptoms, sacroiliitis, myofascial pain, greater trochanteric bursitis Post-procedure Diagnosis:: Same Indications for Procedure:: Patient is a pleasant 41-year-old female who presents today for bilateral SI injections. We are currently treating the patient for degenerative disc disease of lumbar spine with lumbar radiculopathy symptoms, sacroiliitis, myofascial pain, greater trochanteric bursitis. Today she rates her pain a 6 out of 10. Patient denies any new trauma or injury. Patient denies any change to the location or type of pain she experiences. Patient does have a [employer] spinal cord stimulator in place. She is currently managed with [place] 5 mg twice a day from Dr. Mensah's office. Patient denies any side effects from this medication. She states this medication does help treat some of her pain symptoms. General: Alert and oriented x3, no acute distress, pleasant and cooperative Lungs: Respiration even unlabored, symmetrical chest expansion Eyes: PERRL Musculoskeletal: Flexion and extension of lumbar spine somewhat guarded secondary to pain, antalgic gait noted. Point tenderness along bilateral SI's Neurological: Speech clear, no gross sensory deficit Procedure Details:: Informed consent was obtained and the risks and benefits of the procedure were explained to the patient.~ The patient was taken to the procedure room and noninvasive monitors were placed including a noninvasive blood pressure cuff and pulse oximeter.~ The patient was placed prone on the procedure table. Both hips were cleansed using chlorhexidine as a cleansing solution. C-arm fluoroscopy was used to view the right sacroiliac joint.~ The skin and subcutaneous tissues were anesthetized using lidocaine 1.5% and a 25-gauge needle.~ After this, a 22-gauge spinal needle was inserted under fluoroscopic guidance into the inferior aspect of the right sacroiliac joint.~ Omnipaque dye was injected and good spread was seen throughout the joint.~ After this, approximately 5 mL of bupivacaine, 0.25% and Depo-Medrol, 40 mg was incrementally injected into the right sacroiliac joint. We then moved to the left sacroiliac joint.~ The skin and subcutaneous tissues were anesthetized using lidocaine 1.5% and a 25-gauge needle.~ After this, a 22-gauge spinal needle was inserted under fluoroscopic guidance into the inferior aspect of the left sacroiliac joint.~ Omnipaque dye was injected and good spread was seen throughout the joint. After this, approximately 5 mL of bupivacaine, 0.25% and Depo-Medrol, 40 mg was incrementally injected into the left sacroiliac joint.~ The patient tolerated the procedure well with no complications. The patient was observed in the Pain Clinic and then was discharged home neurologically intact. Plan and Disposition:: We will see the patient back in clinic in 2 weeks for reevaluation of symptoms and follow-up. Patient has been instructed to contact the clinic with any questions or concerns before the next appointment date. Dr. Vidal has read this note and agrees with this plan of care. This note was dictated using voice recognition software and may contain errors or omissions.
[2022-09-08 14:21] VITALS: BP 141/95; PULSE 82; RESP 18; O2SAT 99
== END 2022-09-08 14:21 | disposition home or self-care (01) ==
PROVIDERS: PCP Emergency Medicine; Visit Provider Nurse Anesthetist, Certified Registered
DX: M51.16 Intervertebral disc disorders with radiculopathy, lumbar region (principal); M46.1 Sacroiliitis, not elsewhere classified; M70.60 Trochanteric bursitis, unspecified hip; M79.10 Myalgia, unspecified site
CPT/HCPCS: 27096; G0260; J1030

== ENCOUNTER → 2022-09-28 09:17 | Outpatient (POV) | payer MEDICAID, SELFPAY ==
[2022-09-28 09:21] VITALS: BP 131/81; PULSE 111; RESP 18; O2SAT 97; BMI 26.2
--- NOTE | 2022-09-28 11:24 | EXP.PAIN.SOA ---
[facility] Pain Management SOAP Note Subjective:: Patient is a pleasant 42-year-old female who presents today for follow-up after a bilateral SI injections on 09/08/2022. Patient is Being treated for sacroiliitis, greater trochanteric bursitis, degenerative disc disease of lumbar spine with lumbar radiculopathy symptoms. After the injection, patient states that she had significant relief of 80 to 90% for about a week. Rated her pain during that time a 4 out of 10. She was able to increase her activity during that time. Today, patient states that her pain is back to baseline. She rates her pain today a 7 out of 10. Describes the pain as constant, achy, dull. Pain is mainly around her hips. She cannot tolerate any prolonged sitting, standing, and walking. She does have spinal cord stimulator that is helping some of her low back pain. This was recently reprogrammed about a month and a half ago. Nikolai and drug screen have been reviewed and appropriate. She is prescribed [place] 5 mg twice a day by Dr. Mensah. Review of Systems: General: No recent weight changes, no fever, no sleep disturbances Respiratory: No cough, no shortness of air, no recurring pulmonary infections Cardiovascular/peripheral vascular: No chest pain, no palpitations, no edema, no shortness of breath Gastrointestinal: No new onset incontinence, normal bowel movements reported Genitourinary: No new onset incontinence Musculoskeletal: Low back pain, hip pain Psychiatric: [Normal mood/affect] Neurological: [Denies weakness in extremities], [denies balance issues] Objective:: Physical Exam: General: Alert and oriented x3, no acute distress, pleasant and cooperative Lungs: Respirations even and unlabored, symmetrical chest expansion Eyes: PERRL Musculoskeletal: Flexion and extension of lumbar [spine] somewhat guarded secondary to pain, [antalgic gait noted]; bilateral SI are positive for MAKENNA, Consuelo's, [place]'s, Gaenslen's, compression, and distraction. Neurological: Speech clear, no gross sensory deficit Assessment:: Sacroiliitis, greater trochanteric bursitis, degenerative disc disease of lumbar spine with lumbar radiculopathy symptoms Plan:: Patient is significant relief after her bilateral SI injections that lasted for about a week. Pain is back to baseline. Patient is noted to palpation to bilateral SI joints. Patient does have positive bilateral SI exam. We will schedule the patient for a repeat bilateral SI injections. If the patient gets significant but temporary relief from this, patient might be a good candidate for sacroiliac joint stabilization procedure. Her left SI is worse on her right. Patient has been instructed to contact the clinic with any concerns before the next appointment. Dr. Vidal has reviewed this note and agrees with this plan of care. This note was dictated using voice recognition software and make contain errors or omissions. [facility] Disclaimer: The information contained in this section may have been updated after the patient was seen, as this information can be updated by other users. Medical History Degenerative disc disease Family History (Updated 09/08/22 @ 13:29 by Tamera Grimes RN) Other No significant family history Social History Smoking Status: Current every day smoker tobacco type: cigarettes packs per day: 1 second hand exposure: Yes alcohol intake: never substance use type: marijuana current occupational status: unemployed Travel in the last 8 weeks: None household members: spouse and children housing: house current occupational exposures/hazards: No caffeine: Yes
== END ==
PROVIDERS: PCP Emergency Medicine; Visit Provider Student in an Organized Health Care Education/Training Program
DX: M51.16 Intervertebral disc disorders with radiculopathy, lumbar region (principal); M46.1 Sacroiliitis, not elsewhere classified; M70.60 Trochanteric bursitis, unspecified hip
CPT/HCPCS: 99212; G0463

== ENCOUNTER → 2022-09-30 16:08 | Outpatient (CLI) | payer MEDICAID, SELFPAY ==
[2022-09-30 15:30] LABS: Amphetamine/Metha Screen,Urine Negative ng/ml (<1000)
[2022-09-30 15:32] LABS: Barbiturates Screen,Urine Negative ng/ml (<200); Benzodiazepines Screen,Urine Negative ng/ml (<200)
[2022-09-30 15:33] LABS: Cannabinoid Screen,Urine Positive ng/ml (<50); Cocaine Screen,Urine Negative ng/ml (<300)
[2022-09-30 15:34] LABS: Methadone Screen,Urine Negative ng/ml (<300)
[2022-09-30 15:35] LABS: Phencyclidine Screen,Urine Negative ng/ml (<25)
[2022-09-30 15:38] LABS: Opiate Screen,Urine Positive ng/ml (<300)
== END ==
PROVIDERS: PCP Emergency Medicine; Visit Provider Emergency Medicine
DX: Z79.899 Other long term (current) drug therapy (principal)
CPT/HCPCS: 80305

== ENCOUNTER → 2022-10-22 14:52 | Outpatient (CLI) | payer MEDICAID, SELFPAY ==
--- NOTE | 2022-10-22 14:58 | XR_ITS ---
FINAL REPORT CLINICAL HISTORY: foot pain FINDINGS: RIGHT FOOT 3 views of the right foot were obtained. There is no acute fracture or dislocation. Visualized joint spaces are normally aligned. Soft tissues are unremarkable. IMPRESSION: No acute bony abnormality. Reviewed, Interpreted and Dictated by Tera Medina III, MD Transcribed by Matilda Roa Authenticated and [facility]
--- NOTE | 2022-10-22 14:58 | XR_ITS ---
FINAL REPORT CLINICAL HISTORY: foot pain FINDINGS: LEFT FOOT Three views of the left foot demonstrate no acute fracture or dislocation. The visualized joint spaces are normally aligned. The soft tissues are unremarkable. IMPRESSION: No acute bony abnormality. Reviewed, Interpreted and Dictated by Tera Medina III, MD Transcribed by Matilda Roa Authenticated and [facility]
== END ==
PROVIDERS: PCP Emergency Medicine; Visit Provider Podiatrist
DX: M79.671 Pain in right foot (principal); M79.672 Pain in left foot
CPT/HCPCS: 73630

== ENCOUNTER → 2022-10-28 10:20 | Outpatient (POV) | payer MEDICAID, SELFPAY ==
--- NOTE | 2022-10-28 11:06 | EXP.PAIN.SOA ---
[facility] Pain Management SOAP Note Subjective:: Patient is a pleasant 42-year-old female who presents today for follow-up. We are currently treating the patient for degenerative disc disease of lumbar spine with lumbar radiculopathy symptoms, sacroiliitis, greater trochanteric bursitis. Patient rates her pain today a 6 out of 10. Patient denies any new trauma or injury. Patient denies any change location or type of pain she experiences. Patient has had multiple SI injections in the past that provided significant improvement of upwards of 80 to 90% relief however only lasting short-term. The last visit where she was scheduled to get SI injections they were denied by her insurance due to lack of physical therapy. Patient states that she is now in physical therapy and has gone for 2 different visits. Patient states that she has gotten some improvement however she often gets worsening pain symptoms afterwards. Patient is currently prescribed [place] 5 mg twice a day from her primary care provider. Patient denies any side effects from this medication. Her Nikolai is [phone]. Its been reviewed and appropriate. Review of Systems: General: No recent weight changes, no fever, no sleep disturbances Respiratory: No cough, no shortness of air, no recurring pulmonary infections Cardiovascular/peripheral vascular: No chest pain, no palpitations, no edema, no shortness of breath Gastrointestinal: No new onset incontinence, normal bowel movements reported Genitourinary: No new onset incontinence Musculoskeletal: Low back pain Psychiatric: [Normal mood/affect] Neurological: [Denies weakness in extremities], [denies balance issues] Objective:: Physical Exam: General: Alert and oriented x3, no acute distress, pleasant and cooperative Lungs: Respirations even and unlabored, symmetrical chest expansion Eyes: PERRL Musculoskeletal: Flexion and extension of lumbar [spine] somewhat guarded secondary to pain, [antalgic gait noted] Neurological: Speech clear, no gross sensory deficit ORT score updated with low risk Assessment:: Degenerative disc disease of lumbar spine with lumbar radiculopathy symptoms, greater trochanteric bursitis, sacroiliitis Plan:: Patient continues to experience significant pain in her low back and radiating into her lower extremities. Patient did have limited range of motion of her lumbar spine during today's visit. Patient is expecting to be done with her 6-7 visits of physical therapy in the next couple of weeks. Patient would like to retry for the bilateral SI injections at that point. Patient will return to clinic in 2 weeks for reevaluation of symptoms and follow-up. Patient has been instructed to contact the clinic with any concerns before the next appointment. Dr. Vidal has reviewed this note and agrees with this plan of care. This note was dictated using voice recognition software and make contain errors or omissions. [facility] Disclaimer: The information contained in this section may have been updated after the patient was seen, as this information can be updated by other users. Medical History Colitis Degenerative disc disease Herniated disc Surgical History Status post insertion of spinal cord stimulator Family History Other No significant family history Social History Smoking Status: Current every day smoker tobacco type: cigarettes packs per day: 1 second hand exposure: Yes alcohol intake: never substance use type: marijuana current occupational status: unemployed Travel in the last 8 weeks: None household members: spouse and children housing: house current occupational exposures/hazards: No caffeine: Yes
[2022-10-28 11:11] VITALS: BP 157/91; PULSE 97; RESP 18; O2SAT 97; BMI 25.7
== END ==
PROVIDERS: PCP Emergency Medicine; Visit Provider Nurse Practitioner Family
DX: M51.16 Intervertebral disc disorders with radiculopathy, lumbar region (principal); M46.1 Sacroiliitis, not elsewhere classified; M70.60 Trochanteric bursitis, unspecified hip
CPT/HCPCS: 99212; G0463

== ENCOUNTER 2022-11-11 13:30 | Outpatient (RCR) | payer MEDICAID, SELFPAY ==
--- NOTE | 2022-10-13 14:51 | HMH.PTOPEV ---
PT Outpatient Evaluation Rehab PT Outpatient Evaluation Start: 10/13/22 13:50 Freq: Status: Active Protocol: Document 10/13/22 13:50 PDESEROUX (Rec: 10/13/22 14:50 PDESEROUX [id number]) E-signed By Glenn Garcia, PT Outpatient Therapy Subjective History Subjective History Pt. is a 41 year old female whom presents to [facility] Outpatient Physical Therapy Services in [place] for the initial evaluation this date( 10/13/22) w/ c/o chronic and constant lumbar/BLE hip P!, numbness/tingling, and ADL deficits of insidious onset 1- 2 years ago that has progressively worsened in the last 7-8 months. Pt. reports dealing w/ LBP! for years now. Pt. reports having some symptom relief in the lumbar spine and bilateral SI jts. w/ recent round of injections, lumbar spinal stimulator, and previous Physical Therapy. Pt. reports if there is no symptom relief w/ Physical Therapy, then progress to another round of injections w/ possible surgery pt. states. Pt. RTMD in 2022. Pt. describes having intermittent P! that radiates to bilateral feet from the hips as lightning bolts. Recent diagnostic imaging positive for herniated discs and lumbar DDD. Pt. reports having a negative EMG in BLEs last year . Current medications include Hydrocodone. PMH includes lumbar DDD, herniated discs, lumbar spine stimulator implant, hx. of colitis, chronic history of LBP!. Pt. denies history of pacemaker, denies history of cancer, denies latex allergy, reports medicational allergy to Clindamycin. Pt. denies saddle paresthesia at this time,
== END 2022-11-19 13:17 | disposition home or self-care (01) ==
LOC: PT 13:30
PROVIDERS: PCP Emergency Medicine; Visit Provider Nurse Practitioner Family
DX: M54.50 Low back pain, unspecified (principal)
CPT/HCPCS: 97110; 97163; 97530

== ENCOUNTER → 2022-11-25 14:19 | Outpatient (POV) | payer MEDICAID, SELFPAY ==
[2022-11-25 14:26] VITALS: BP 129/86; PULSE 111; RESP 18; O2SAT 97; BMI 25.7
--- NOTE | 2022-11-25 14:45 | EXP.PAIN.SOA ---
[facility] Pain Management SOAP Note Subjective:: Patient is a pleasant 42-year-old female who presents today for follow-up. We are currently treating the patient for degenerative disc disease of lumbar spine with lumbar radiculopathy symptoms, sacroiliitis, greater trochanteric bursitis. Today she rates her pain a 6 out of 10. Patient denies any new trauma or injury. Patient denies any change location or type of pain she experiences. Patient states that she has finished all her physical therapy appointments and that she does feel like she has gotten significant improvement with this. Patient states she has been able to increase her activity with decreased pain and that she does feel like she has been able to walk for longer periods of time. Patient states that her previous SI injections that were in the end in August have still seem like they have provided additional relief. At this time she feels like she is much better than when she started with our office. Patient is currently managed with Peak 5 mg twice a day by Dr. Mensah. Patient denies any side effects from this medication. Her Nikolai is [phone]. Its been reviewed and appropriate. Review of Systems: General: No recent weight changes, no fever, no sleep disturbances Respiratory: No cough, no shortness of air, no recurring pulmonary infections Cardiovascular/peripheral vascular: No chest pain, no palpitations, no edema, no shortness of breath Gastrointestinal: No new onset incontinence, normal bowel movements reported Genitourinary: No new onset incontinence Musculoskeletal: Low back pain Psychiatric: [Normal mood/affect] Neurological: [Denies weakness in extremities], [denies balance issues] Objective:: Physical Exam: General: Alert and oriented x3, no acute distress, pleasant and cooperative Lungs: Respirations even and unlabored, symmetrical chest expansion Eyes: PERRL Musculoskeletal: Flexion and extension of lumbar [spine] somewhat guarded secondary to pain, [antalgic gait noted] Neurological: Speech clear, no gross sensory deficit Assessment:: Degenerative disc disease of lumbar spine with lumbar radiculopathy symptoms, sacroiliitis, greater trochanteric bursitis Plan:: Patient has had significant improvement of her pain symptoms following physical therapy and her SI injections done at the end of August last year. At this time she does not need any additional injective therapy. Patient will return to clinic in 3 months for reevaluation of symptoms and plan of care. Patient has been instructed to contact the clinic with any concerns before the next appointment. Dr. Vidal has reviewed this note and agrees with this plan of care. This note was dictated using voice recognition software and make contain errors or omissions. [facility] Disclaimer: The information contained in this section may have been updated after the patient was seen, as this information can be updated by other users. Medical History Colitis Degenerative disc disease Herniated disc Surgical History Status post insertion of spinal cord stimulator Family History Other No significant family history Social History Smoking Status: Current every day smoker tobacco type: cigarettes packs per day: 1 second hand exposure: Yes alcohol intake: never substance use type: marijuana current occupational status: unemployed Travel in the last 8 weeks: None household members: spouse and children housing: house current occupational exposures/hazards: No caffeine: Yes
== END ==
PROVIDERS: PCP Emergency Medicine; Visit Provider Nurse Practitioner Family
DX: M51.16 Intervertebral disc disorders with radiculopathy, lumbar region (principal); M46.1 Sacroiliitis, not elsewhere classified; M70.60 Trochanteric bursitis, unspecified hip
CPT/HCPCS: 99212; G0463

== ENCOUNTER → 2022-11-27 14:20 | Outpatient (CLI) | payer MEDICAID, SELFPAY ==
[2022-11-30 09:46] LABS: Amphetamine/Metha Screen,Urine Negative ng/ml (<1000); Benzodiazepines Screen,Urine Negative ng/ml (<200)
[2022-11-30 09:47] LABS: Barbiturates Screen,Urine Negative ng/ml (<200)
[2022-11-30 09:49] LABS: Cocaine Screen,Urine Negative ng/ml (<300)
[2022-11-30 09:50] LABS: Methadone Screen,Urine Negative ng/ml (<300)
[2022-11-30 09:51] LABS: Cannabinoid Screen,Urine Positive ng/ml (<50); Opiate Screen,Urine Positive ng/ml (<300)
[2022-11-30 09:52] LABS: Phencyclidine Screen,Urine Negative ng/ml (<25)
== END ==
PROVIDERS: PCP Emergency Medicine; Visit Provider Emergency Medicine
DX: Z79.899 Other long term (current) drug therapy (principal)
CPT/HCPCS: 80305

== ENCOUNTER → 2023-03-19 23:15 | Outpatient (CLI) | payer MEDICAID, SELFPAY ==
[2023-03-19 18:53] LABS: Amphetamine/Metha Screen,Urine Negative ng/ml (<1000); Barbiturates Screen,Urine Negative ng/ml (<200)
[2023-03-19 18:55] LABS: Benzodiazepines Screen,Urine Negative ng/ml (<200)
[2023-03-19 18:56] LABS: Cannabinoid Screen,Urine Positive ng/ml (<50); Cocaine Screen,Urine Negative ng/ml (<300)
[2023-03-19 18:57] LABS: Methadone Screen,Urine Negative ng/ml (<300)
[2023-03-19 18:58] LABS: Opiate Screen,Urine Negative ng/ml (<300); Phencyclidine Screen,Urine Negative ng/ml (<25)
== END ==
PROVIDERS: PCP Emergency Medicine; Visit Provider Emergency Medicine
DX: Z79.899 Other long term (current) drug therapy (principal)
CPT/HCPCS: 80305

== ENCOUNTER → 2023-03-25 10:45 | Outpatient (POV) | payer MEDICAID, SELFPAY ==
--- NOTE | 2023-03-25 11:10 | EXP.PAIN.SOA ---
[facility] Pain Management SOAP Note Subjective:: Patient is a pleasant 42-year-old female who presents today for 4-month follow-up. We are currently treating the patient for degenerative disc disease of lumbar spine with lumbar radiculopathy symptoms, sacroiliitis, greater trochanteric bursitis. Today she rates her pain a 7 out of 10. Patient does deny any new trauma or injury. She does state that she feels like her SI area is worse and that the pain has changed from previous. Patient does describe this as an aching, throbbing sensation that is worse with increased activity. She does state that she is no longer even able to bend over without having sharp shooting pains. It does interfere with her ability to perform activities of daily living such as cooking and cleaning. Patient has had previous SI injections that did provide significant relief of at least 75% in the past. Patient is currently managed with [place] 5 mg twice a day from her primary care doctor's office. Patient denies any side effects from this medication. Her Nikolai is [phone]. Its been reviewed and appropriate. Review of Systems: General: No recent weight changes, no fever, no sleep disturbances Respiratory: No cough, no shortness of air, no recurring pulmonary infections Cardiovascular/peripheral vascular: No chest pain, no palpitations, no edema, no shortness of breath Gastrointestinal: No new onset incontinence, normal bowel movements reported Genitourinary: No new onset incontinence Musculoskeletal: Low back pain, SI pain, bilateral hip pain Psychiatric: [Normal mood/affect] Neurological: [Denies weakness in extremities], [denies balance issues] Objective:: Physical Exam: General: Alert and oriented x3, no acute distress, pleasant and cooperative Lungs: Respirations even and unlabored, symmetrical chest expansion Eyes: PERRL Musculoskeletal: Flexion and extension of lumbar [spine] somewhat guarded secondary to pain, [antalgic gait noted] extreme point tenderness noted at bilateral SIs and positive bilateral Alessandra's, Consuelo's, Gaenslen's, compression and distraction exam Neurological: Speech clear, no gross sensory deficit Assessment:: Degenerative disc disease of lumbar spine with lumbar radiculopathy symptoms, low back pain, sacroiliitis chronic, greater trochanteric bursitis Plan:: Patient is experiencing significant pain in her low back and SI region with radiating symptoms into her bilateral hips. Patient did have limited range of motion of her lumbar spine along with extreme point tenderness along her bilateral SIs and positive bilateral Alessandra's, Consuelo's, Gaenslen's, compression and distraction exam. I have discussed with the patient that she may benefit from bilateral SI injections. Risk and benefits were discussed with the patient and she would like to proceed forward with this plan of care. I will also order updated imaging since she has not had any prior to 2020 and do an order for x-ray of her lumbar spine and SI joints. I will also send in a prescription of methocarbamol 500 mg twice daily and provide a 1 month supply of this medication. Patient has tried and failed conservative therapy such as oral medications, heat and ice, topicals, physical therapy, at home stretching and exercise for longer than 6 weeks. Patient has had previous SI injections that did provide upwards of 75% improvement or more lasting several months. We will schedule the patient for bilateral SI injections. Patient has been instructed to contact the clinic with any concerns before the next appointment. Dr. Vidal has reviewed this note and agrees with this plan of care. This note was dictated using voice recognition software and make contain errors or omissions. [facility] Disclaimer: The information contained in this section may have been updated after the patient was seen, as this information can be updated by other users. Medical History Colitis
[2023-03-25 11:30] VITALS: BP 124/88; PULSE 103; RESP 20; BMI 26.6
== END | disposition home or self-care (01) ==
PROVIDERS: PCP Emergency Medicine; Visit Provider Nurse Practitioner Family
DX: M46.1 Sacroiliitis, not elsewhere classified; M70.60 Trochanteric bursitis, unspecified hip; M51.16 Intervertebral disc disorders with radiculopathy, lumbar region
CPT/HCPCS: 99212; G0463

== ENCOUNTER → 2023-03-25 11:17 | Outpatient (CLI) | payer MEDICAID, SELFPAY ==
--- NOTE | 2023-03-25 11:20 | XR_ITS ---
FINAL REPORT CLINICAL HISTORY: LBP FINDINGS: 5 views of the lumbar spine were obtained. There is no evidence of fracture or dislocation. The vertebral alignment is normal. There is mild degenerative change throughout the lumbar spine, especially at the L5-S1 level where there is disc space narrowing. An intrathecal catheter is present. There is a questionable unilateral L5 pars defect. No paraspinous soft tissue abnormalities identified. IMPRESSION: Mild degenerative change as described above, with disc space narrowing at the L5-S1 level. No acute bony abnormality. Reviewed, Interpreted and Dictated by Tera Medina III, MD Transcribed by Tonja Garcia Authenticated and [facility]
--- NOTE | 2023-03-25 11:20 | XR_ITS ---
FINAL REPORT CLINICAL HISTORY: SI JOINT PAIN FINDINGS: Sacroiliac joints three views: Multiple views of the sacroiliac joints failed to reveal any evidence of fracture or dislocation. Mild degenerative change is present in the sacroiliac joints with mild spurring. IMPRESSION: Mild degenerative change in the SI joints. Reviewed, Interpreted and Dictated by Tera Medina III, MD Transcribed by Tonja Garcia Authenticated and [facility][1]
== END ==
PROVIDERS: PCP Emergency Medicine; Visit Provider Nurse Practitioner Family
DX: M54.50 Low back pain, unspecified (principal); M53.3 Sacrococcygeal disorders, not elsewhere classified
CPT/HCPCS: 72110; 72202

== ENCOUNTER 2023-04-27 10:43 | Day surgery (SDC) | payer MEDICAID, SELFPAY ==
[2023-04-27 10:55] VITALS: BP 110/84; PULSE 102; RESP 18; TEMP 36.4; O2SAT 99; BMI 25.9
[2023-04-27 11:07] VITALS: BP 129/90; PULSE 106; RESP 18; O2SAT 99
[2023-04-27 11:08] VITALS: BP 129/90; PULSE 106; RESP 18; O2SAT 99
--- NOTE | 2023-04-27 11:14 | P.PCN_ITS ---
Procedure Date: 04/27/23 Time: 11:05 Anesthesiologist:: Glenn Alvarado CRNA Complications:: None Pre-procedure Diagnosis:: Bilateral sacroiliitis. Post-procedure Diagnosis:: Same. Indications for Procedure:: This patient is a very pleasant 42-year-old female that comes our clinic today for repeat bilateral sacroiliac joint injection. Patient has extreme point tenderness over the bilateral sacroiliac joints. Patient has difficulty transitioning from sitting to standing. Patient reports pain increases significantly with ambulation. She rates her pain 7/10. Procedure Details:: Procedure: Bilateral sacroiliac joint injections under fluoroscopy Informed consent was obtained and the risks and benefits of the procedure were explained to the patient.~ The patient was taken to the procedure room and noninvasive monitors were placed including a noninvasive blood pressure cuff and pulse oximeter.~ The patient was placed prone on the procedure table. Both hips were cleansed using Betadine as a cleansing solution. C-arm fluoroscopy was used to view the right sacroiliac joint.~ The skin and subcutaneous tissues were anesthetized using lidocaine 1.5% and a 25-gauge needle.~ After this, a 22-gauge spinal needle was inserted under fluoroscopic guidance into the inferior aspect of the right sacroiliac joint.~ Omnipaque dye was injected and good spread was seen throughout the joint.~ After this, approximately 5 mL of bupivacaine, 0.25% and Depo-Medrol, 40 mg was incrementally injected into the right sacroiliac joint. We then moved to the left sacroiliac joint.~ The skin and subcutaneous tissues were anesthetized using lidocaine 1.5% and a 25-gauge needle.~ After this, a 22- gauge spinal needle was inserted under fluoroscopic guidance into the inferior aspect of the left sacroiliac joint.~ Omnipaque dye was injected and good spread was seen throughout the joint. After this, approximately 5 mL of bupivacaine, 0.25% and Depo-Medrol, 40 mg was incrementally injected into the left sacroiliac joint.~ The patient tolerated the procedure well with no complications. The patient was observed in the Pain Clinic and then was discharged home neurologically intact. Plan and Disposition:: Patient was discharged without incident.
[2023-04-27 11:17] VITALS: BP 113/81; PULSE 84; RESP 18; O2SAT 99
== END 2023-04-27 11:17 | disposition home or self-care (01) ==
PROVIDERS: PCP Emergency Medicine; Visit Provider Nurse Anesthetist, Certified Registered
DX: M46.1 Sacroiliitis, not elsewhere classified (principal)
CPT/HCPCS: 27096; G0260; J1040

== ENCOUNTER → 2023-05-10 12:52 | Outpatient (POV) | payer MEDICAID, SELFPAY ==
[2023-05-10 12:58] VITALS: BP 153/100; PULSE 107; RESP 18; O2SAT 97; BMI 25.4
--- NOTE | 2023-05-10 13:09 | EXP.PAIN.SOA ---
[facility] Pain Management SOAP Note Subjective:: Patient is a pleasant 42-year-old female who presents today for bilateral SI injection follow-up on 04/27/2023. We are currently treating the patient for degenerative disc disease of lumbar spine with lumbar radiculopathy symptoms, sacroiliitis, greater trochanteric bursitis. Patient rates her pain today a 6 out of 10. Patient states she at least had 50% improvement following this injection that lasted at least 1 week. Patient states that she felt like she may have overdone it because she was feeling so good. Patient states she was able to clean around her house and do activities that she had not been able to do for quite some time due to her pain. Today she does state that she is back to her baseline and denies any new injury or trauma. Patient does state that her has recently been diagnosed with prostate cancer and he has a surgical procedure scheduled on Wednesday to have it removed. At our last visit the patient was tried on Robaxin 500 mg twice daily however she states she did not notice any additional improvement with this. Patient is currently managed with Max 5 mg twice a day from Dr. Mensah's office. Patient denies any side effects from this medication. Her Nikolai is [phone]. Its been reviewed and appropriate. Review of Systems: General: No recent weight changes, no fever, no sleep disturbances Respiratory: No cough, no shortness of air, no recurring pulmonary infections Cardiovascular/peripheral vascular: No chest pain, no palpitations, no edema, no shortness of breath Gastrointestinal: No new onset incontinence, normal bowel movements reported Genitourinary: No new onset incontinence Musculoskeletal: Low back pain, bilateral hip pain Psychiatric: [Normal mood/affect] Neurological: [Denies weakness in extremities], [denies balance issues] Objective:: Physical Exam: General: Alert and oriented x3, no acute distress, pleasant and cooperative Lungs: Respirations even and unlabored, symmetrical chest expansion Eyes: PERRL Musculoskeletal: Flexion and extension of lumbar [spine] somewhat guarded secondary to pain, [antalgic gait noted] Neurological: Speech clear, no gross sensory deficit Assessment:: Degenerative disc disease of lumbar spine with lumbar radiculopathy symptoms, chronic sacroiliitis, greater trochanteric bursitis Plan:: Patient continues to experience significant pain in her low back and bilateral hips with limited range of motion. I have discussed with the patient in future she may benefit from a SI stabilization procedure. Risk and benefits were explained to the patient and we will discuss this at future visits. Patient will return to clinic in 1 month for reevaluation of symptoms and plan of care. Patient has been instructed to contact the clinic with any concerns before the next appointment. Dr. Vidal has reviewed this note and agrees with this plan of care. This note was dictated using voice recognition software and make contain errors or omissions. [facility] Disclaimer: The information contained in this section may have been updated after the patient was seen, as this information can be updated by other users. Medical History Colitis Degenerative disc disease Herniated disc Surgical History Status post insertion of spinal cord stimulator Family History Other No significant family history Social History Smoking Status: Current every day smoker tobacco type: cigarettes packs per day: 1 second hand exposure: Yes alcohol intake: never substance use type: marijuana current occupational status: other Travel in the last 8 weeks: None household members: spouse and children housing: house current occupational exposures/hazards: No
== END ==
PROVIDERS: Visit Provider Nurse Practitioner Family
DX: M51.16 Intervertebral disc disorders with radiculopathy, lumbar region (principal); M46.1 Sacroiliitis, not elsewhere classified; M70.60 Trochanteric bursitis, unspecified hip
CPT/HCPCS: 99212; G0463

== ENCOUNTER → 2023-05-18 13:05 | Outpatient (CLI) | payer MEDICAID, SELFPAY ==
[2023-05-18 13:22] LABS: Amphetamine/Metha Screen,Urine Negative ng/ml (<1000); Barbiturates Screen,Urine Negative ng/ml (<200); Benzodiazepines Screen,Urine Negative ng/ml (<200); Cannabinoid Screen,Urine Positive ng/ml (<50); Cocaine Screen,Urine Negative ng/ml (<300); Opiate Screen,Urine Positive ng/ml (<300); Phencyclidine Screen,Urine Negative ng/ml (<25)
[2023-05-19 15:58] LABS: Methadone Screen,Urine Negative ng/ml (<300)
== END ==
PROVIDERS: PCP Emergency Medicine; Visit Provider Emergency Medicine
DX: M51.16 Intervertebral disc disorders with radiculopathy, lumbar region (principal)
CPT/HCPCS: 80305

== ENCOUNTER → 2023-06-09 08:42 | Outpatient (POV) | payer MEDICAID, SELFPAY ==
--- NOTE | 2023-06-09 09:20 | EXP.PAIN.SOA ---
[facility] Pain Management SOAP Note Subjective:: Patient is a pleasant 42-year-old female who presents today for follow-up. We are currently treating the patient for degenerative disc disease of lumbar spine with lumbar radiculopathy symptoms, sacroiliitis, greater trochanteric bursitis. Today she rates her pain a 6 out of 10. Patient states approximately a week and a half ago she fell going down her steps and that she landed on her low back left lower buttocks/hip area. Patient does state the pain is a throbbing, aching sensation and that she does believe it is more related to the initial injury. She does state that she had substantial bruising around the site. She states she is still a little sore today. She does not think that she fractured anything however she is unsure. Patient has recently had x-ray imaging of her lumbar spine and we were planning on ordering the advanced imaging next. Patient is currently on [place] 5 mg twice a day from Dr. Mensah's office. Patient denies any side effects from this medication. She has tried Robaxin 500 mg twice daily in the past however it did not provide any additional improvement. Her Nikolai is [phone]. Its been reviewed and appropriate. Review of Systems: General: No recent weight changes, no fever, no sleep disturbances Respiratory: No cough, no shortness of air, no recurring pulmonary infections Cardiovascular/peripheral vascular: No chest pain, no palpitations, no edema, no shortness of breath Gastrointestinal: No new onset incontinence, normal bowel movements reported Genitourinary: No new onset incontinence Musculoskeletal: Low back pain, left hip/buttocks pain Psychiatric: [Normal mood/affect] Neurological: [Denies weakness in extremities], [denies balance issues] Objective:: Physical Exam: General: Alert and oriented x3, no acute distress, pleasant and cooperative Lungs: Respirations even and unlabored, symmetrical chest expansion Eyes: PERRL Musculoskeletal: Flexion and extension of lumbar [spine] somewhat guarded secondary to pain, [antalgic gait noted] point tenderness along left SI/left buttocks Neurological: Speech clear, no gross sensory deficit Assessment:: Degenerative disc disease of lumbar spine with lumbar radiculopathy symptoms, sacroiliitis, greater trochanteric bursitis Plan:: Patient is experiencing more pain in her low back with radiating symptoms into her left hip/buttocks area. Patient did have point tenderness along her left SI/hip area. I have discussed with the patient that I will proceed forward with ordering the CT without contrast of her lumbar spine. I have discussed with the patient that if this continues to be additional issue we can do injective therapy or that she may also benefit from a possible SI injection. I will prescribe the patient prednisone 20 mg twice daily and provide a 5-day supply of this medication. Patient will return to clinic in 1 month following her imaging for reevaluation of symptoms and plan of care. I have counseled the patient to contact our office if her pain worsens between now and her next appointment. Patient has been instructed to contact the clinic with any concerns before the next appointment. Dr. Vidal has reviewed this note and agrees with this plan of care. This note was dictated using voice recognition software and make contain errors or omissions. [facility] Disclaimer: The information contained in this section may have been updated after the patient was seen, as this information can be updated by other users. Medical History Colitis Degenerative disc disease Herniated disc Surgical History Status post insertion of spinal cord stimulator Family History Other No significant family history Social History Smoking Stat
[2023-06-09 09:48] VITALS: BP 132/78; PULSE 95; RESP 18; O2SAT 95; BMI 25.0
== END | disposition home or self-care (01) ==
PROVIDERS: PCP Emergency Medicine; Visit Provider Nurse Practitioner Family
DX: M51.16 Intervertebral disc disorders with radiculopathy, lumbar region (principal); M46.1 Sacroiliitis, not elsewhere classified; M70.60 Trochanteric bursitis, unspecified hip
CPT/HCPCS: 99212; G0463

== ENCOUNTER → 2023-06-25 08:52 | Outpatient (POV) | payer MEDICAID, SELFPAY ==
[2023-06-25 09:04] VITALS: BP 137/90; PULSE 107; RESP 18; O2SAT 98; BMI 25.0
--- NOTE | 2023-06-25 09:20 | EXP.PAIN.SOA ---
[facility] Pain Management SOAP Note Subjective:: This patient is a very pleasant 42-year-old female comes our clinic today for follow-up after CT scan denial from insurance. Patient has spinal cord stimulator and is unable to have MRI. CT scan was ordered originally to further discern lumbar pathology. Patient currently being managed with [place] 5 mg 1 p.o. twice daily from her PCP. Patient's Nikolai #[id number] has been reviewed and appropriate. Patient continues having low back pain she describes as constant, dull, aching. Also, bilateral hip and leg radicular symptoms. Patient's lumbar x-ray is indicative of further pathology in the lumbar spine that would be detailed by CT scan. Patient has tried and failed conservative treatment. She attended [facility] physical therapy November through December 2022. Patient states she attended 6 visits. Patient states pain increased while attempting physical therapy. Patient also has continue with home exercise program for the last 12 months without success. Patient reports her symptoms continue. She rates her pain today 04/19 Objective:: Patient is awake alert [place] x3. No acute distress. Flexion-extension lumbar spine very guarded secondary to pain. Deep tendon reflexes upper and lower extremities normal. Motor strength upper lower extremities normal. There is no gross sensory deficit. Gait is normal. Assessment:: Degenerative disc lumbar spine multilevels. Lumbar radiculopathy. Plan:: We will plan CT scan lumbar spine. [facility] Disclaimer: The information contained in this section may have been updated after the patient was seen, as this information can be updated by other users. Medical History Colitis Degenerative disc disease Herniated disc Surgical History Status post insertion of spinal cord stimulator Family History Other No significant family history Social History Smoking Status: Current every day smoker tobacco type: cigarettes packs per day: 1 second hand exposure: Yes alcohol intake: never substance use type: marijuana current occupational status: unemployed Travel in the last 8 weeks: None household members: spouse and children housing: house current occupational exposures/hazards: No caffeine: Yes
== END ==
PROVIDERS: PCP Emergency Medicine; Visit Provider Nurse Anesthetist, Certified Registered
DX: M51.16 Intervertebral disc disorders with radiculopathy, lumbar region (principal); Z96.82 Presence of neurostimulator
CPT/HCPCS: 99212; G0463

== ENCOUNTER → 2023-07-16 09:18 | Outpatient (CLI) | payer MEDICAID, SELFPAY ==
[2023-07-16 19:09] LABS: Basophils # 0.1 K/mm3 (0-0.2); Basophils % 0.5 % (0.1-2.0); Eosinophils # 0.1 K/mm3 (0.0-0.4); Eosinophils % 0.5 % (0.1-12.0); Hematocrit 47.6 % (37.0-47.0); Lymphocytes % 40.4 % (10-50); Mean Corpuscular HGB Conc 31.5 g/dL (31.8-35.4); Mean Corpuscular Hemoglobin 30.8 pg (27.0-31.2); Mean Corpuscular Volume 97.8 fl (81-99); Mean Platelet Volume 11.2 fl (7.4-10.4); Monocytes # 0.4 K/mm3 (0.1-1.0); Monocytes % 4.4 % (1.7-9.3); Neutrophils # 5.4 K/mm3 (1.8-7.8); Neutrophils % 54.4 % (37.0-80.0); Platelet Count 254 K/mm3 (142-424); Red Blood Count 4.87 M/mm3 (4.20-5.40); Red Cell Distribution Width 14.4 % (11.5-17.5)
[2023-07-16 19:17] LABS: Alanine Aminotransferase 20 U/L (12-78); Albumin Level 4.8 g/dl (3.5-5.0); Albumin/Globulin Ratio 1.3 (1.1-1.8); Alkaline Phosphatase 69 U/L (38-126); Anion Gap 16.9 mEq/L (5-15); Aspartate Amino Transferase 25 U/L (14-36); Bilirubin,Total 0.7 mg/dl (0.2-1.3); Blood Urea Nitrogen 10 mg/dl (7-17); Calcium 10.1 mg/dl (8.4-10.2); Carbon Dioxide 23 mmol/L (22.0-30.0); Chloride 107 mmol/L (98-107); Chol/HDL Ratio 3.4 (1-3.5); Cholesterol 153 mg/dl (140-200); Estimated Glomerular Filt Rate 78 ml/min (>60); GFR (African American) 95 ML/MIN (>60); Globulin 3.7 g/dL (1.3-3.2); Glucose 133 mg/dl (74-100); HDL Cholesterol 45 mg/dl (40-60); Potassium 3.9 mmoL/L (3.5-5.1); Sodium 143 mmol/L (136-145); Total Protein,Serum 8.5 g/dl (6.3-8.2); Triglycerides 93 mg/dl (30-150); VLDL Cholesterol 19 mg/dL (0-40)
[2023-07-16 19:28] LABS: Direct LDL Cholesterol 79.67 mg/dL (100-129)
[2023-07-16 19:34] LABS: 25-OH Vitamin D, Total 40.3 ng/mL (30-100); T4 (Thyroxine) 8.5 ug/dl (5.53-11.0)
[2023-07-16 19:47] LABS: Thyroid Stimulating Hormone 1.06 uIU/mL (0.465-4.68)
[2023-07-16 22:25] LABS: Amphetamine/Metha Screen,Urine Negative ng/ml (<1000)
[2023-07-16 22:26] LABS: Barbiturates Screen,Urine Negative ng/ml (<200)
[2023-07-16 22:27] LABS: Benzodiazepines Screen,Urine Negative ng/ml (<200); Cannabinoid Screen,Urine Positive ng/ml (<50)
[2023-07-16 22:28] LABS: Cocaine Screen,Urine Negative ng/ml (<300); Methadone Screen,Urine Negative ng/ml (<300)
[2023-07-16 22:29] LABS: Opiate Screen,Urine Positive ng/ml (<300)
[2023-07-16 22:30] LABS: Phencyclidine Screen,Urine Negative ng/ml (<25)
== END ==
PROVIDERS: PCP Emergency Medicine; Visit Provider Emergency Medicine
DX: Z00.00 Encounter for general adult medical examination without abnormal findings (principal); Z79.899 Other long term (current) drug therapy; Z68.25 Body mass index [BMI] 25.0-25.9, adult
CPT/HCPCS: 80053; 80061; 80305; 82306; 84436; 84443; 85025

== ENCOUNTER 2023-07-18 18:01 | Emergency (ER) | payer MEDICAID, SELFPAY ==
[2023-07-18 18:02] VITALS: BP 111/72; PULSE 90; RESP 18; TEMP 36.5; O2SAT 98; BMI 24.7
--- NOTE | 2023-07-18 18:30 | PC.NURSE ---
DR ESCOBEDO AT BEDSIDE
[2023-07-18 18:31] VITALS: BP 104/66; PULSE 78; O2SAT 97
[2023-07-18 18:32] LABS: Microscopic, Urine URINE MICROSCOPIC (MICROSCOPIC)
[2023-07-18 18:36] LABS: Chloride 106 mmol/L (98-107); Potassium 3.6 mmoL/L (3.5-5.1); Sodium 140 mmol/L (136-145)
--- NOTE | 2023-07-18 18:36 | HMH.EDGENADL ---
Discharge Plan Disposition Patient Disposition: Home, Self-Care Prescriptions Prescriptions: New ondansetron 4 mg tablet,disintegrating 4 mg PO Q6H PRN (Reason: nausea and vomiting) 5 Days Qty: 20 0RF No Action hydrocodone-acetaminophen 5-325 mg tablet 1 tab PO BID Qty: 60 0RF Referrals Follow up/Referrals: Nasir Mensah MD [Primary Care Provider] - See instructions Activity Restrictions/Add. Instructions Additional Instructions/Restrictions: Return to the emergency part with any worsening symptoms or inability to tolerate fluids by mouth. Clinical Impressions Clinical Impression: Nausea & vomiting Instructions Patient Instructions: DI for Diarrhea and Traveler's Diarrhea -- Adult, DI for Diarrhea and Traveler's Diarrhea -- Child, DI for Nausea -- Adult, DI for Nausea -- Child Discharge ED Provider: Julian Cheung General Adult HPI General Chief complaint: Nausea/Vomiting/Diarrhea Stated complaint: Vomiting and back pain Time Seen by Provider: 07/18/23 18:33 Mode of Arrival: Ambulatory Limitations: No Limitations Description of Symptoms (Recalled from ER Triage Doc. by RN): PT REPORTS VOMITING AND CHILLS THAT BEGAN LATE LAST NIGHT, WORSENING OF CHRONIC BACK PAIN History of Present Illness HPI narrative: 42-year-old female here with nausea and vomiting no significant abdominal pain. She has a history of colitis had a normal bowel movement yesterday has not had any bowel movement or passing any gas today. Denies any blood in her bowel movements. Denies any blood in her vomit or any bilious emesis. No sick contacts that she is aware of no fevers or chills. States she has been able to keep anything down since late last night. Related Data Previous Rx's Medication Instructions Recorded hydrocodone 5 mg-acetaminophen 325 1 tab PO BID Pain #60 tabs 07/16/23 mg tablet ondansetron 4 mg disintegrating 4 mg PO Q6H PRN nausea and 07/18/23 tablet vomiting 5 days #20 tabs Allergies Allergy/AdvReac Type Severity Reaction Status Date / Time clindamycin AdvReac Nausea Verified 07/16/23 13:50 [facility] Disclaimer: The information contained in this section may have been updated after the patient was seen, as this information can be updated by other users. Medical History Colitis Degenerative disc disease Herniated disc Surgical History Status post insertion of spinal cord stimulator Family History Other No significant family history Social History Smoking Status: Current every day smoker tobacco type: cigarettes packs per day: 1 second hand exposure: Yes alcohol intake: never substance use type: marijuana current occupational status: unemployed Travel in the last 8 weeks: None household members: spouse and children housing: house current occupational exposures/hazards: No caffeine: Yes ROS Obtained: Yes All systems reviewed & no additional complaints except as documented Physical Exam General General appearance: alert and in no apparent distress Respiratory Respiratory exam: Present normal lung sounds bilaterally Cardiovascular Cardiovascular exam: Present regular rate; Absent tachycardia Abdominal Exam Abdominal exam: Present soft; Absent distention or tenderness Neurological Exam Neurological exam: Present alert and oriented X3 Medical Decision Making Nikolai Inquiry Pt receiving controlled substance: No Vital Signs: 07/18/23 18:02 07/18/23 18:31 07/18/23 19:00 Temperature 97.7 F Temperature Source Oral Pulse Rate 78 64 Pulse Rate [Radial] 90 Respiratory Rate 18 Blood Pressure 104/66 L 110/71 Blood Pressure [Right Arm] 111/72 Blood Pressure Mean [Right Arm] 85 Blood Pressure Source [Right Arm] Automatic Cuff Blood
[2023-07-18 18:38] LABS: Basophils % 0.1 % (0.1-2.0); Eosinophils # 0.3 K/mm3 (0.0-0.4); Hematocrit 49.2 % (37.0-47.0); Hemoglobin 15.7 g/dL (12.2-16.2); Lymphocytes # 0.8 K/mm3 (0.7-4.5); Lymphocytes % 5.2 % (10-50); Mean Corpuscular HGB Conc 31.9 g/dL (31.8-35.4); Mean Corpuscular Hemoglobin 30.5 pg (27.0-31.2); Mean Corpuscular Volume 95.8 fl (81-99); Monocytes # 0.3 K/mm3 (0.1-1.0); Monocytes % 1.8 % (1.7-9.3); Neutrophils # 14.2 K/mm3 (1.8-7.8); Platelet Count 246 K/mm3 (142-424); Red Blood Count 5.13 M/mm3 (4.20-5.40); Red Cell Distribution Width 14.3 % (11.5-17.5); White Blood Count 15.6 K/mm3 (4.8-10.8)
[2023-07-18 18:39] LABS: Alanine Aminotransferase 24 U/L (12-78); Albumin Level 4.8 g/dl (3.5-5.0); Albumin/Globulin Ratio 1.2 (1.1-1.8); Alkaline Phosphatase 81 U/L (38-126); Anion Gap 16.6 mEq/L (5-15); Appearance,Urine CLOUDY (Clear); Aspartate Amino Transferase 30 U/L (14-36); Bilirubin,Total 1.1 mg/dl (0.2-1.3); Blood Urea Nitrogen 12 mg/dl (7-17); Blood, Urine 3+ (Negative); Calcium 9.7 mg/dl (8.4-10.2); Carbon Dioxide 21 mmol/L (22.0-30.0); Color,Urine YELLOW (Yellow); Creatinine Clearance Estimated 140 mL/min (50-200); Estimated Glomerular Filt Rate 135 ml/min (>60); GFR (African American) 163 ML/MIN (>60); Glucose 107 mg/dl (74-100); Glucose,Urine (UA) Negative (Negative); Ketones,Urine 3+ (Negative); Leukocyte Esterase,Urine 1+ (Negative); Nitrate,Urine Negative (Negative); Protein,Urine 2+ (Negative); Specific Gravity, Urine 1.015 (1.005-1.030); Total Protein,Serum 8.8 g/dl (6.3-8.2); Urobilinogen,Urine 0.2 EU/dl (0.2)
[2023-07-18 18:40] LABS: Bilirubin,Urine 1+ (Negative); MANUAL DIFFERENTIAL MANUAL DIFFERENTIAL (MANUAL DIFF)
[2023-07-18 18:48] LABS: Urine Pregnancy, HCG Qual. Negative (Negative)
[2023-07-18 18:51] LABS: RBC,Urine TNTC #/hpf (0-3)
[2023-07-18 18:52] LABS: Lipase 58 U/L (23-300)
[2023-07-18 18:59] LABS: Lymphocytes % 5 % (10-50); Neutrophils % 95 % (42-76); Platelet Estimate Normal; RBC Morphology Normal; Total Cells Counted 100
[2023-07-18 19:00] VITALS: BP 110/71; PULSE 64; O2SAT 98
[2023-07-18 19:49] VITALS: BP 129/75; PULSE 64; RESP 18; TEMP 36.9; O2SAT 97
== END 2023-07-18 19:50 | disposition home or self-care (01) ==
PROVIDERS: Emergency Provider Student in an Organized Health Care Education/Training Program; PCP Emergency Medicine
DX: R11.2 Nausea with vomiting, unspecified (principal); R82.79 Other abnormal findings on microbiological examination of urine; B96.89 Other specified bacterial agents as the cause of diseases classified elsewhere; D72.829 Elevated white blood cell count, unspecified; M51.36 Other intervertebral disc degeneration, lumbar region; M51.26 Other intervertebral disc displacement, lumbar region; F17.210 Nicotine dependence, cigarettes, uncomplicated
CPT/HCPCS: 80053; 81001; 81025; 83690; 85007; 85025; 87086; 96361; 96374; 99284; J2405

== ENCOUNTER → 2023-08-04 13:44 | Outpatient (CLI) | payer MEDICAID, SELFPAY ==
--- NOTE | 2023-08-04 13:48 | CT_ITS ---
FINAL REPORT TECHNIQUE: Axial imaging of the lumbar spine was obtained without contrast. Sagittal and coronal reformatted images were also obtained and reviewed. This study was performed with techniques to keep radiation doses as low as reasonably achievable (ALARA). Individualized dose reduction techniques using automated exposure control or adjustment of mA and/or kV according to the patient's size were employed. CLINICAL HISTORY: BACK PAIN COMPARISON: T of the abdomen and pelvis from 05/18/2022 FINDINGS: There is no fracture. The vertebral alignment is normal. There is endplate degenerative change at the L5-S1 level..There is no evidence of significant central canal stenosis. A spinal stimulator is once again identified. L1-L2: An annular bulge is present with mild left neural foraminal narrowing. L2-L3: An annular bulge is present with mild bilateral neural foraminal narrowing. L3-L4: An annular bulge is present with mild bilateral neural foraminal narrowing. L4-L5: An annular bulge is present with a central disc protrusion and bilateral L5 nerve root impingement. There is mild right and moderate left neural foraminal narrowing. L5-S1: There is a right L5 pars defect, as well as an annular bulge with osteophytes. There is moderate right and severe left neural foraminal narrowing. Given differences in technique no significant change is noted since the prior CT of 03/18/2021. IMPRESSION: Multilevel degenerative change without acute bony abnormality, most severe at the L4-5 and L5-S1 levels.. Reviewed, Interpreted and Dictated by Tera Medina III, MD Transcribed by Tonja Garcia Authenticated and [facility]
== END ==
PROVIDERS: PCP Emergency Medicine; Visit Provider Nurse Practitioner Family
DX: M54.9 Dorsalgia, unspecified (principal)
CPT/HCPCS: 72131

== ENCOUNTER → 2023-08-11 10:24 | Outpatient (POV) | payer MEDICAID, SELFPAY ==
--- NOTE | 2023-08-11 10:31 | EXP.PAIN.SOA ---
[facility] Pain Management SOAP Note Subjective:: Patient is a pleasant 42-year-old female who presents today for follow-up of lumbar CT. We are currently treating the patient for degenerative disc disease of lumbar spine with lumbar radiculopathy symptoms, sacroiliitis, greater trochanteric bursitis. Patient rates her pain today a 8 out of 10. She denies any new injury or trauma. She states she continues to have worsening pain in her back that radiates down her bilateral lower extremities. Patient does have a spinal cord stimulator in place however states that it has been a while since she has been reprogrammed. She does describe her pain as a constant, dull, aching sensation that is worse with increased activity. Patient has tried and failed conservative therapy such as oral medications, heat and ice, topicals, physical therapy, at home stretching and exercise for longer than 12 weeks. Patient is currently managed with [place] 5 mg twice a day from Dr. Mensah's office. Patient denies any side effects from this medication. Her Nikolai has been reviewed and appropriate. Review of Systems: General: No recent weight changes, no fever, no sleep disturbances Respiratory: No cough, no shortness of air, no recurring pulmonary infections Cardiovascular/peripheral vascular: No chest pain, no palpitations, no edema, no shortness of breath Gastrointestinal: No new onset incontinence, normal bowel movements reported Genitourinary: No new onset incontinence Musculoskeletal: Low back pain, bilateral leg pain Psychiatric: [Normal mood/affect] Neurological: [Denies weakness in extremities], [denies balance issues] Objective:: Physical Exam: General: Alert and oriented x3, no acute distress, pleasant and cooperative Lungs: Respirations even and unlabored, symmetrical chest expansion Eyes: PERRL Musculoskeletal: Flexion and extension of lumbar [spine] somewhat guarded secondary to pain, [antalgic gait noted] Neurological: Speech clear, no gross sensory deficit TECHNIQUE: Axial imaging of the lumbar spine was obtained without contrast. Sagittal and coronal reformatted images were also obtained and reviewed. This study was performed with techniques to keep radiation doses as low as reasonably achievable (ALARA). Individualized dose reduction techniques using automated exposure control or adjustment of mA and/or kV according to the patient's size were employed. CLINICAL HISTORY: BACK PAIN COMPARISON: T of the abdomen and pelvis from 05/18/2022 FINDINGS: There is no fracture. The vertebral alignment is normal. There is endplate degenerative change at the L5-S1 level..There is no evidence of significant central canal stenosis. A spinal stimulator is once again identified. L1-L2: An annular bulge is present with mild left neural foraminal narrowing. L2-L3: An annular bulge is present with mild bilateral neural foraminal narrowing. L3-L4: An annular bulge is present with mild bilateral neural foraminal narrowing. L4-L5: An annular bulge is present with a central disc protrusion and bilateral L5 nerve root impingement. There is mild right and moderate left neural foraminal narrowing. L5-S1: There is a right L5 pars defect, as well as an annular bulge with osteophytes. There is moderate right and severe left neural foraminal narrowing. Given differences in technique no significant change is noted since the prior CT of 03/18/2021. IMPRESSION: Multilevel degenerative change without acute bony abnormality, most severe at the L4-5 and L5-S1 levels.. Reviewed, Interpreted and Dictated by Tera Medina III, MD Transcribed by Tonja Garcia Authenticated and [facility] Assessment:: Degenerative disc disease of lumbar spine with lumbar radiculopathy symptoms, sacroiliitis, greater trochanteric bursitis Plan:: Patient continues to experience significant pain in he
[2023-08-11 10:52] VITALS: BP 117/91; PULSE 117; RESP 18; O2SAT 98; BMI 24.7
== END | disposition home or self-care (01) ==
PROVIDERS: PCP Emergency Medicine; Visit Provider Nurse Practitioner Family
DX: M51.16 Intervertebral disc disorders with radiculopathy, lumbar region (principal); M46.1 Sacroiliitis, not elsewhere classified; M70.60 Trochanteric bursitis, unspecified hip
CPT/HCPCS: 99212; G0463

== ENCOUNTER → 2023-08-25 13:34 | Outpatient (POV) | payer MEDICAID, SELFPAY ==
--- NOTE | 2023-08-25 14:25 | A.OFFVIS_ITS ---
[facility] Pain Management SOAP Note Subjective:: Patient is a pleasant 42-year-old female who presents today for 2-week follow- up. We are currently treating the patient for degenerative disc disease of lumbar spine with lumbar radiculopathy symptoms, sacroiliitis, greater trochanteric bursitis. Today she rates her pain a 5 out of 10. Patient denies any new trauma or injury from her last visit. She does state she is scheduled to meet with [employer] surgical sales representative Wednesday for reprogramming of her device. At our last visit we did prescribe her tizanidine 4 mg at bedtime. Patient does state this did provide significant improvement however she does not take it every night. Patient is currently managed with [place] 5 mg twice a day from Dr. Mensah's office. Her Nikolai has been reviewed and is appropriate. Review of Systems: General: No recent weight changes, no fever, no sleep disturbances Respiratory: No cough, no shortness of air, no recurring pulmonary infections Cardiovascular/peripheral vascular: No chest pain, no palpitations, no edema, no shortness of breath Gastrointestinal: No new onset incontinence, normal bowel movements reported Genitourinary: No new onset incontinence Musculoskeletal: Low back pain Psychiatric: [Normal mood/affect] Neurological: [Denies weakness in extremities], [denies balance issues] Objective:: Physical Exam: General: Alert and oriented x3, no acute distress, pleasant and cooperative Lungs: Respirations even and unlabored, symmetrical chest expansion Eyes: PERRL Musculoskeletal: Flexion and extension of lumbar [spine] somewhat guarded secondary to pain, [antalgic gait noted] Neurological: Speech clear, no gross sensory deficit Assessment:: Degenerative disc disease of lumbar spine with lumbar radiculopathy symptoms, sacroiliitis, greater trochanteric bursitis Plan:: I will refill the patient's tizanidine 4 mg at bedtime and provide a 3-month supply of this medication. Patient will return to clinic in 3 months for reeval uation of symptoms and plan of care. Patient has been instructed to contact the clinic with any concerns before the next appointment. Dr. Vidal has reviewed this note and agrees with this plan of care. This note was dictated using voice recognition software and make contain errors or omissions. [facility] Disclaimer: The information contained in this section may have been updated after the patient was seen, as this information can be updated by other users. Medical History Colitis Degenerative disc disease Herniated disc Surgical History Status post insertion of spinal cord stimulator Family History Other No significant family history Social History Smoking Status: Current every day smoker tobacco type: cigarettes packs per day: 1 second hand exposure: Yes alcohol intake: never substance use type: marijuana current occupational status: unemployed Travel in the last 8 weeks: None household members: spouse and children housing: house current occupational exposures/hazards: No caffeine: Yes
[2023-08-25 14:38] VITALS: BP 134/83; PULSE 94; RESP 20; O2SAT 100; BMI 24.7
== END | disposition home or self-care (01) ==
PROVIDERS: PCP Emergency Medicine; Visit Provider Nurse Practitioner Family
DX: M51.16 Intervertebral disc disorders with radiculopathy, lumbar region (principal); M46.1 Sacroiliitis, not elsewhere classified; M70.60 Trochanteric bursitis, unspecified hip
CPT/HCPCS: 99212; G0463

== ENCOUNTER 2023-10-19 12:51 | Outpatient (CLI) | payer MEDICAID, SELFPAY ==
--- NOTE | 2023-10-19 12:51 | MM_ITS ---
PROCEDURE INFORMATION: Exam: MG Bilateral Screening 3D Mammography Exam date and time: 10/19/2023 12:49 PM Age: 42 years old Clinical indication: Screening examination TECHNIQUE: Imaging protocol: Bilateral Screening tomosynthesis and 2D mammography including computer-aided detection (CAD) when performed. COMPARISON: MG MM DIG SCREENING MAMM BI W/CAD 09/24/2021 4:05 PM FINDINGS: MAMMOGRAPHY: Breast composition: The breasts are heterogeneously dense, which may obscure small masses. Mass: None. Architectural distortion: None. Calcifications: No suspicious calcifications. Asymmetric density: None. Skin thickening: None. Axillary adenopathy: None. IMPRESSION: No mammographic evidence of malignancy. Annual screening is recommended unless otherwise clinically indicated. ASSESSMENT: BI-RADS Category 1: Negative
== END 2023-10-19 23:59 ==
LOC: RAD 12:51
PROVIDERS: PCP Internal Medicine; Visit Provider Internal Medicine
DX: Z12.31 Encounter for screening mammogram for malignant neoplasm of breast (principal)
CPT/HCPCS: 77063; 77067

== ENCOUNTER → 2023-11-25 13:39 | Outpatient (POV) | payer MEDICAID, SELFPAY ==
--- NOTE | 2023-11-25 14:31 | A.OFFVIS_ITS ---
[facility] Pain Management SOAP Note Subjective:: Patient is a pleasant 43-year-old female who presents today for medication refill and follow-up. We are currently treating the patient for degenerative disc disease of lumbar spine with lumbar radiculopathy symptoms, chronic sacroiliitis, greater trochanteric bursitis. Today she rates her pain a 6 out of 10. Patient denies any new trauma or injury. She does state that she is experiencing more pain in and around her bilateral hips and describes it as an aching, throbbing sensation that is worse with increased activity or prolonged sitting or standing. Patient has had prior SI injections that did provide significant improvement of more than 80%. Patient is interested in repeating th khang injections at today's visit. Patient does have a [place] spinal cord stimulator in place that she does state the current programming is still doing well. She does state that occasionally if she uses it more continuously she does get some headaches so she typically takes breaks. Patient is currently managed with tizanidine 4 mg at bedtime however she states that recently her primary care provider did mention about being on this more throughout the day. Patient does state occasionally she still has good days and does not feel like she needs this all the time. Patient is currently managed with [place] 5 mg twice a day from Dr. Naranjo's office. Her Nikolai has been reviewed and is appropriate. Review of Systems: General: No recent weight changes, no fever, no sleep disturbances Respiratory: No cough, no shortness of air, no recurring pulmonary infections Cardiovascular/peripheral vascular: No chest pain, no palpitations, no edema, no shortness of breath Gastrointestinal: No new onset incontinence, normal bowel movements reported Genitourinary: No new onset incontinence Musculoskeletal: Low back pain, bilateral hip pain Psychiatric: [Normal mood/affect] Neurological: [Denies weakness in extremities], [denies balance issues] Objective:: Physical Exam: General: Alert and oriented x3, no acute distress, pleasant and cooperative Lungs: Respirations even and unlabored, symmetrical chest expansion Eyes: PERRL Musculoskeletal: Flexion and extension of lumbar [spine] somewhat guarded secondary to pain, [antalgic gait noted] point tenderness along bilateral SIs with positive bilateral Alessandra's, Consuelo's, Gaenslen's, compression and distraction exam Neurological: Speech clear, no gross sensory deficit Assessment:: Degenerative disc disease of lumbar spine with lumbar radiculopathy symptoms, chronic sacroiliitis, greater trochanteric bursitis Plan:: Patient is experiencing worsening pain in her low back and bilateral hips with limited range of motion. Patient did have extreme point tenderness along her bilateral SIs and a positive bilateral Alessandra's, Consuelo's, Gaenslen's, compression and distraction exam. I have discussed with the patient that she may benefit from bilateral SI injections. Risk and benefits were discussed with the patient and she would like to proceed forward with this plan of care. Patient has had these injections in the past and they did provide more than 80% relief. I will also refill the patient's tizanidine and change it to 3 times a day as needed. I have counseled the patient that she does not have to take this on a regular basis but it is there as needed. Patient will be scheduled for bilateral SI injections under fluoroscopy. Patient has been instructed to contact the clinic with any concerns before the next appointment. Dr. Vidal has reviewed this note and agrees with this plan of care. This note was dictated using voice recognition software and make contain errors or omissions. [facility] Disclaimer: The information contained in this section may have been updated after the patient was seen, as this information can be updated by other users. Medical History Colitis Degenerative disc disease Herniated disc Surgical History Status post insertion of spinal cord stimulator Family History Other No significant family history Social History Smoking Status: Current every day smoker tobacco type: cigarettes packs per day: 1 second hand exposure: Yes alcohol intake: never substance use type: marijuana current occupational status: other Travel in the last 8 weeks: None household members: spouse and children housing: house current occupational exposures/hazards: No caffeine: Yes
[2023-11-25 14:45] VITALS: BP 115/89; PULSE 105; RESP 18; O2SAT 98; BMI 24.7
== END | disposition home or self-care (01) ==
PROVIDERS: PCP Internal Medicine; Visit Provider Nurse Practitioner Family
DX: M51.16 Intervertebral disc disorders with radiculopathy, lumbar region (principal); M46.1 Sacroiliitis, not elsewhere classified; G89.29 Other chronic pain; M70.61 Trochanteric bursitis, right hip; M70.62 Trochanteric bursitis, left hip
CPT/HCPCS: 99212; G0463

== ENCOUNTER 2023-12-23 13:14 | Outpatient (POV) | payer MEDICAID, SELFPAY ==
--- NOTE | 2023-12-23 13:45 | EXP.PAIN.SOA ---
[facility] Pain Management SOAP Note Subjective:: Patient is a pleasant 43-year-old female who presents today for insurance denial. We are currently treating the patient for degenerative disc disease of lumbar spine with lumbar radiculopathy symptoms, chronic sacroiliitis, greater trochanteric bursitis. Today she rates her pain a 7 out of 10. Patient denies any new trauma or injury. Patient states she continues to have pain in and around her low back and bilateral hips. Patient describes it as an aching, throbbing sensation that is worse with increased activity or prolonged sitting or standing. Patient does state the pain interferes with her ability perform activities of daily living such as cooking and cleaning. Patient has had prior SI injections that did provide significant improvement of more than 80% for more than 2 weeks and then continuing to provide additional rate relief for several months at closer to 50% improvement. She is still interested in repeating this injections. Her last SI injections were done in April 2023. She does have a [employer] spinal cord stimulator in place and is still doing well. Patient was previously prescribed tizanidine 4 mg 3 times daily however she states that she felt like this caused more dizziness and so her primary care provider discontinued this medication and added amitriptyline. Patient states that she has not tried this medication yet due to fear that it will cause dizziness. She is currently managed with [place] 5 mg twice a day from Dr. Naranjo's office. Patient has had physical therapy in the past however it did not provide additional relief and she was discharged. Patient did continue to do her at home exercise and stretching that was directed by the physical therapist and has done this continually for longer than 12 weeks with no additional relief. Her Nikolai has been reviewed and is appropriate. Review of Systems: General: No recent weight changes, no fever, no sleep disturbances Respiratory: No cough, no shortness of air, no recurring pulmonary infections Cardiovascular/peripheral vascular: No chest pain, no palpitations, no edema, no shortness of breath Gastrointestinal: No new onset incontinence, normal bowel movements reported Genitourinary: No new onset incontinence Musculoskeletal: Low back pain, bilateral hip pain Psychiatric: [Normal mood/affect] Neurological: [Denies weakness in extremities], [denies balance issues] Objective:: physical Exam: General: Alert and oriented x3, no acute distress, pleasant and cooperative Lungs: Respirations even and unlabored, symmetrical chest expansion Eyes: PERRL Musculoskeletal: Flexion and extension of lumbar [spine] somewhat guarded secondary to pain, [antalgic gait noted] point tenderness along bilateral SIs with positive bilateral Alessandra's, Consuelo's, Gaenslen's, compression and distraction exam Neurological: Speech clear, no gross sensory deficit Assessment:: Degenerative disc disease of lumbar spine with lumbar radiculopathy symptoms, bilateral hip pain, chronic sacroiliitis, greater trochanteric bursitis Plan:: Patient continues to experience significant pain in her low back and bilateral hips with extreme point tenderness at her bilateral SIs and a positive bilateral Alessandra's, Consuelo's, Gaenslen's, compression and distraction exam. I have discussed with the patient that she still would benefit from the bilateral SI injections. Patient did previously get 80% relief relief lasting 2 weeks and then continue to get about 50% relief for several months. Her last SI injection was done in April 2023. Patient has continued to try conservative measures including physical therapist guided home exercise and stretching for longer than 12 weeks. We will resubmit to insurance for the bilateral SI injections under fluoroscopy. Patient has been instructed to contact the clinic with any concerns before the next appointment. Dr. Vidal has reviewed this note and agrees with this plan of care. This note was dictated using voice recognition software and make contain errors or omissions. [facility] Disclaimer: The information contained in this section may have been updated after the patient was seen, as this information can be updated by other users. Medical History Colitis Degenerative disc disease Herniated disc Surgical History Status post insertion of spinal cord stimulator Family History Other No significant family history Social History Smoking Status: Current every day smoker tobacco type: cigarettes packs per day: 1 second hand exposure: Yes alcohol intake: never substance use type: marijuana current occupational status: other Travel in the last 8 weeks: None household members: spouse and children housing: house current occupational exposures/hazards: No caffeine: Yes
[2023-12-23 14:17] VITALS: BP 110/80; PULSE 87; RESP 20; O2SAT 100; BMI 23.6
== END 2023-12-23 23:59 ==
LOC: SC.PAIN 13:15
PROVIDERS: PCP Internal Medicine; Visit Provider Nurse Practitioner Family
DX: M51.16 Intervertebral disc disorders with radiculopathy, lumbar region (principal); M25.551 Pain in right hip; M25.552 Pain in left hip; M46.1 Sacroiliitis, not elsewhere classified; G89.29 Other chronic pain; M70.60 Trochanteric bursitis, unspecified hip
CPT/HCPCS: 99212; G0463

== ENCOUNTER 2024-01-14 08:10 | Day surgery (SDC) | payer MEDICAID, SELFPAY ==
[2024-01-14 08:24] VITALS: BP 127/84; PULSE 109; RESP 18; TEMP 36.4; O2SAT 98; BMI 24.7
[2024-01-14] MEDS: LIDOCAINE 1% 5ML PF VIAL 5 ML (08:31)
[2024-01-14] MEDS: methylPREDNISolone ACETATE 80MG/ML VIAL 80 MG (08:31)
[2024-01-14] MEDS: BUPIVACAINE 0.25% 10ML INJ 25 MG IJ (08:32)
[2024-01-14 08:35] VITALS: BP 138/90; PULSE 89; RESP 18; O2SAT 98
[2024-01-14 08:36] VITALS: BP 142/91; PULSE 80; RESP 18; O2SAT 99
[2024-01-14 08:38] VITALS: BP 142/91; PULSE 80; RESP 18; O2SAT 99
--- NOTE | 2024-01-14 08:45 | P.PCN_ITS ---
Procedure Date: 01/14/24 Time: 08:20 Anesthesiologist:: Glenn Alvarado CRNA Complications:: None Pre-procedure Diagnosis:: Bilateral sacroiliitis Post-procedure Diagnosis:: Same Indications for Procedure:: Patient is a very pleasant 43-year-old female comes our clinic today for bilateral sacroiliac joint injection. Patient reports having low lumbar back pain off the midline bilaterally. She reports the pain is 8/10. Patient has responded extremely well to previous bilateral sacroiliac joint injections. Procedure Details:: Procedure: Bilateral sacroiliac joint injections under fluoroscopy Informed consent was obtained and the risks and benefits of the procedure were explained to the patient.~ The patient was taken to the procedure room and noninvasive monitors were placed including a noninvasive blood pressure cuff and pulse oximeter.~ The patient was placed prone on the procedure table. Both hips were cleansed using Betadine as a cleansing solution. C-arm fluoroscopy was used to view the right sacroiliac joint.~ The skin and subcutaneous tissues were anesthetized using lidocaine 1.5% and a 25-gauge needle.~ After this, a 22-gauge spinal needle was inserted under fluoroscopic guidance into the inferior aspect of the right sacroiliac joint.~ Omnipaque dye was injected and good spread was seen throughout the joint.~ After this, approximately 5 mL of bupivacaine, 0.25% and Depo-Medrol, 40 mg was incrementally injected into the right sacroiliac joint. We then moved to the left sacroiliac joint.~ The skin and subcutaneous tissues were anesthetized using lidocaine 1.5% and a 25-gauge needle.~ After this, a 22- gauge spinal needle was inserted under fluoroscopic guidance into the inferior aspect of the left sacroiliac joint.~ Omnipaque dye was injected and good spread was seen throughout the joint. After this, approximately 5 mL of bupivacaine, 0.25% and Depo-Medrol, 40 mg was incrementally injected into the left sacroiliac joint.~ The patient tolerated the procedure well with no complications. The patient was observed in the Pain Clinic and then was discharged home neurologically intact. Plan and Disposition:: Patient was discharged without incident.
== END 2024-01-14 08:35 | disposition home or self-care (01) ==
LOC: SC.PAINP 08:10
PROVIDERS: PCP Internal Medicine; Visit Provider Nurse Anesthetist, Certified Registered
DX: M46.1 Sacroiliitis, not elsewhere classified (principal)
CPT/HCPCS: 27096; 77002; G0260; J1010

== ENCOUNTER 2024-01-26 10:24 | Outpatient (POV) | payer MEDICAID, SELFPAY ==
[2024-01-26 10:24] VITALS: BP 139/106; PULSE 111; RESP 18; O2SAT 99; BMI 23.8
--- NOTE | 2024-01-26 10:46 | EXP.PAIN.SOA ---
[facility] Pain Management SOAP Note Subjective:: Patient is a pleasant 43-year-old female who presents today for follow-up of bilateral SI injections on 01/14/2024. We are currently treating the patient for degenerative disc disease of lumbar spine with lumbar radiculopathy symptoms, chronic sacroiliitis, greater trochanteric bursitis. Today she rates her pain a 5 out of 10. Patient denies any new trauma or injury. She does state that she has had at least 80% pain relief in and around her hips and that this is still continuing to help tearing in her buttocks area. Patient states she has been able to increase her activity since having this injection and feels more functional. Patient does state today all of her pain is more related to her lumbar spine. Patient does describe this as an aching, throbbing sensation that is worse with certain positions. She states that she has increased pain with bending, twisting or lifting. Patient does state the pain interferes with her ability perform activities of daily living such as cooking and cleaning. She is currently managed with [place] 5 mg twice a day from Dr. Naranjo's office. Patient has tried and failed conservative therapy including oral medications, heat and ice, topicals and physical therapy with minimal improvement. She does continue to do her at home exercise and stretching that was directed by the physical therapist and has done this continually for longer than 12 weeks with no additional relief. Her Nikolai has been reviewed and is appropriate. Review of Systems: General: No recent weight changes, no fever, no sleep disturbances Respiratory: No cough, no shortness of air, no recurring pulmonary infections Cardiovascular/peripheral vascular: No chest pain, no palpitations, no edema, no shortness of breath Gastrointestinal: No new onset incontinence, normal bowel movements reported Genitourinary: No new onset incontinence Musculoskeletal: Low back pain Psychiatric: [Normal mood/affect] Neurological: [Denies weakness in extremities], [denies balance issues] Objective:: Physical Exam: General: Alert and oriented x3, no acute distress, pleasant and cooperative Lungs: Respirations even and unlabored, symmetrical chest expansion Eyes: PERRL Musculoskeletal: Flexion and extension of lumbar [spine] somewhat guarded secondary to pain, [antalgic gait noted] positive Kemps test Neurological: Speech clear, no gross sensory deficit Assessment:: Degenerative disc disease of lumbar spine with lumbar radiculopathy symptoms, bilateral hip pain, sacroiliitis, greater trochanteric bursitis, lumbar spondylosis Plan:: Patient is experiencing worsening pain in her low back with limited range of motion of her lumbar spine and a positive Kemps test. I have discussed with patient that she may benefit from lumbar medial branch blocks. Risk and benefits were explained to the patient and she would like to proceed forward with this plan of care. Patient is not on any blood thinners. Patient has not had any of these injections in the past 3 to 4 years. I have discussed with the patient if she does get significant relief we will plan on repeating this injection with the plan to proceed forward with a lumbar RFA at a later date. Patient acknowledges understanding and agrees with this plan of care. Patient will be scheduled for a lumbar medial branch block bilaterally L4-L5 and L5-S1 under fluoroscopy. Patient has tried and failed conservative therapies including physical therapy and continued physical therapy guided at home exercising and stretching regimen. Patient has been instructed to contact the clinic with any concerns before the next appointment. Dr. Vidal has reviewed this note and agrees with this plan of care. This note was dictated using voice recognition software and make contain errors or omissions. [facility] Disclaimer: The information contained in this section may have been updated after the patient was seen, as this information can be updated by other users. Medical History Colitis Degenerative disc disease Herniated disc Surgical History Status post insertion of spinal cord stimulator Family History Other No significant family history Social History Smoking Status: Current every day smoker tobacco type: cigarettes packs per day: 1 second hand exposure: Yes alcohol intake: never substance use type: marijuana current occupational status: unemployed Travel in the last 8 weeks: None household members: spouse and children housing: house current occupational exposures/hazards: No caffeine: Yes
== END 2024-01-26 23:59 ==
LOC: SC.PAIN 10:24
PROVIDERS: PCP Internal Medicine; Visit Provider Nurse Practitioner Family
DX: M51.16 Intervertebral disc disorders with radiculopathy, lumbar region (principal); M25.551 Pain in right hip; M25.552 Pain in left hip; M46.1 Sacroiliitis, not elsewhere classified; M70.60 Trochanteric bursitis, unspecified hip; M47.26 Other spondylosis with radiculopathy, lumbar region
CPT/HCPCS: 99212; G0463

== ENCOUNTER 2024-02-29 08:41 | Day surgery (SDC) | payer MEDICAID, SELFPAY ==
[2024-02-29 08:56] VITALS: BP 134/92; PULSE 90; RESP 18; TEMP 36.4; O2SAT 98; BMI 24.7
[2024-02-29] MEDS: LIDOCAINE 1% 5ML PF VIAL 5 ML (09:17)
[2024-02-29] MEDS: BUPIVACAINE 0.25% 10ML INJ 25 MG IJ (09:17)
[2024-02-29 09:18] VITALS: BP 131/87; PULSE 96; RESP 18; O2SAT 100
[2024-02-29] MEDS: methylPREDNISolone ACETATE 80MG/ML VIAL 80 MG (09:18)
[2024-02-29 09:20] VITALS: BP 131/87; PULSE 95; RESP 18; O2SAT 99
[2024-02-29 09:21] VITALS: BP 150/98; PULSE 80; RESP 18; O2SAT 98
--- NOTE | 2024-02-29 09:23 | P.PCN_ITS ---
Procedure Date: 02/29/24 Time: 08:55 Anesthesiologist:: Glenn Alvarado CRNA Complications:: None Pre-procedure Diagnosis:: Degenerative disc lumbar spine multilevels. Lumbar radiculopathy. Lumbar spondylosis. Multilevel lumbar facet arthropathy. Post-procedure Diagnosis:: Same. Indications for Procedure:: Patient is a pleasant 43-year-old female comes our clinic today for bilateral L4-5, L5-S1 medial branch blocks/facet injections. Patient currently reporting low back pain she describes as constant, dull, aching. She reports having difficulty with flexion, extension, left and right rotation. She rates her pain 8/10. Procedure Details:: Informed consent was obtained and the risk and benefits of the procedure was explained to the patient. Patient was taken to the procedure room where noninvasive monitors were placed, including noninvasive blood pressure cuff as well as pulse oximeter. The area over the lumbar spine was cleansed using chlorhexidine as a cleansing solution. I anesthetized the skin and subcutaneous tissues with 1% Lidocaine. I placed 22-gauge spinal needles into the facet joint/ medial branches of L4-L5, and L5-S1] bilaterally. Needle placement was confirmed with fluoroscopy. After confirmation of needle placement, each site was injected with 1 mL of 1% lidocaine and 0.25 % Marcaine and 10 mg of Depo- Medrol. A total of 80 mg of depo medrol was used for bilateral medial branch blocks of L4-L5, and L5-S1] bilaterally. Patient tolerated the procedure without difficulty. There were no complications. Plan and Disposition:: Patient was discharged without incident.
== END 2024-02-29 09:22 | disposition home or self-care (01) ==
PROVIDERS: PCP Internal Medicine; Visit Provider Nurse Anesthetist, Certified Registered
DX: M47.896 Other spondylosis, lumbar region (principal); M51.16 Intervertebral disc disorders with radiculopathy, lumbar region
CPT/HCPCS: 64493; 64494; J1010

== ENCOUNTER 2024-03-15 09:32 | Outpatient (POV) | payer MEDICAID, SELFPAY ==
[2024-03-15 09:49] VITALS: BP 120/82; PULSE 104; RESP 18; O2SAT 99; BMI 24.7
--- NOTE | 2024-03-15 10:26 | A.OFFVIS_ITS ---
[facility] Pain Management SOAP Note Subjective:: Patient is a pleasant 43-year-old female who presents today for follow-up of bilateral medial branch blocks L4-L5 and L5-S1 on 02/29/2024. Today she rates her pain a 7 out of 10. She denies any new trauma or injury. She does state that she really only denies minimal relief with this injection. May be 10 minutes and then her pain was back to its normal. Patient does states she continues to have the chronic pain in her low back that does go into her hips and occasionally into her legs. Patient is currently managed with [place] from her PCP. Patient has tried and failed conservative therapy. Her Nikolai has been reviewed and is appropriate. Review of Systems: General: No recent weight changes, no fever, no sleep disturbances Respiratory: No cough, no shortness of air, no recurring pulmonary infections Cardiovascular/peripheral vascular: No chest pain, no palpitations, no edema, n o shortness of breath Gastrointestinal: No new onset incontinence, normal bowel movements reported Genitourinary: No new onset incontinence Musculoskeletal: Low back pain, bilateral hip pain Psychiatric: [Normal mood/affect] Neurological: [Denies weakness in extremities], [denies balance issues] Objective:: Physical Exam: General: Alert and oriented x3, no acute distress, pleasant and cooperative Lungs: Respirations even and unlabored, symmetrical chest expansion Eyes: PERRL Musculoskeletal: Flexion and extension of lumbar [spine] somewhat guarded secondary to pain, [antalgic gait noted] Neurological: Speech clear, no gross sensory deficit Assessment:: Degenerative disc disease of lumbar spine with lumbar radiculopathy symptoms, bilateral sacroiliitis, bilateral greater trochanteric bursitis, bilateral hip pain, lumbar spondylosis Plan:: Patient continues to have significant pain throughout her low back. I have discussed with the patient in future she may benefit from a intrathecal pain pump. Risk and benefits and educational handouts were given at today's visit. We will follow-up with her in future. Patient has tried multiple conservative therapies including injection therapy with some providing longer relief than others. We will follow-up with patient in 2 months for reevaluation of symptoms and plan of care. Patient has been instructed to contact the clinic with any concerns before the next appointment. Dr. Vidal has reviewed this note and agrees with this plan of care. This note was dictated using voice recognition software and make contain errors or omissions. [facility] Disclaimer: The information contained in this section may have been updated after the patient was seen, as this information can be updated by other users. Medical History Herniated disc Degenerative disc disease Colitis Surgical History Status post insertion of spinal cord stimulator Family History Other No significant family history Social History Smoking Status: Current every day smoker tobacco type: cigarettes packs per day: 1 second hand exposure: Yes alcohol intake: never substance use type: marijuana current occupational status: unemployed Travel in the last 8 weeks: None household members: spouse and children housing: house current occupational exposures/hazards: No caffeine: Yes
== END 2024-03-15 23:59 | disposition home or self-care (01) ==
LOC: SC.PAIN 09:32
PROVIDERS: PCP Internal Medicine; Visit Provider Nurse Practitioner Family
DX: M51.16 Intervertebral disc disorders with radiculopathy, lumbar region (principal); M46.1 Sacroiliitis, not elsewhere classified; M70.61 Trochanteric bursitis, right hip; M70.62 Trochanteric bursitis, left hip; M25.551 Pain in right hip; M25.552 Pain in left hip
CPT/HCPCS: 99212; G0463

== ENCOUNTER 2024-03-28 10:15 | Emergency (ER) | payer MEDICAID, SELFPAY ==
[2024-03-28 10:16] VITALS: BP 156/89; PULSE 67; RESP 18; TEMP 36.7; O2SAT 100; BMI 24.7
[2024-03-28 10:24] VITALS: BP 156/89; PULSE 69; O2SAT 100
[2024-03-28 10:30] VITALS: BP 148/95; PULSE 62; O2SAT 100
--- NOTE | 2024-03-28 10:45 | HMH.EDGENADL ---
Discharge Plan Disposition Patient Disposition: Home, Self-Care Prescriptions Prescriptions: New promethazine 12.5 mg tablet 12.5 mg PO TID PRN (Reason: allergy symptoms) Qty: 15 0RF Rx Instructions: 3 doses during day; last dose no later than 4 hr before bedtime No Action hydrocodone-acetaminophen 5-325 mg tablet 1 tab PO TID PRN (Reason: pain) Qty: 90 0RF hydrocodone-acetaminophen 5-325 mg tablet 1 tab PO TID Qty: 90 0RF ondansetron 4 mg tablet,disintegrating 4 mg PO Q6H PRN (Reason: nausea and vomiting) 5 Days Qty: 20 0RF Referrals Follow up/Referrals: Mani Sr DO [Primary Care Provider] - See instructions Activity Restrictions/Add. Instructions Additional Instructions/Restrictions: At this time it was felt you are safe to be discharged home. If new or worsening symptoms please do not hesitate to return the emergency department. Please take your medications as prescribed. Clinical Impressions Clinical Impression: Chronic back pain, Vomiting Instructions Patient Instructions: DI for Low Back Pain Discharge ED Provider: Corbin Mondragon General Adult HPI General Chief complaint: Back Pain/Injury Stated complaint: vomitting, back pain Time Seen by Provider: 03/28/24 10:16 Mode of Arrival: Ambulatory Source of Information: Patient Limitations: No Limitations Description of Symptoms (Recalled from ER Triage Doc. by RN): Patient reports lower back pain and vomting since last night. States she took her Lortab and Zofran this morning with no relief of her symptoms. History of Present Illness HPI narrative: Patient is a 43-year-old female past medical history of chronic back pain and on pain medication and spinal stimulator who presents emergency department for evaluation of back pain and vomiting. Patient has had lower back pain consistent with her baseline back pain however it is worse in severity than normal. This has happened before and has caused her to vomit from the pain. Due to this she presents here for continued evaluation. No other acute complaints at this time. Related Data Previous Rx's Medication Instructions Recorded ondansetron 4 mg disintegrating 4 mg PO Q6H PRN nausea and 07/18/23 tablet vomiting 5 days #20 tabs hydrocodone 5 mg-acetaminophen 325 1 tab PO TID PRN pain #90 tabs 02/15/24 mg tablet hydrocodone 5 mg-acetaminophen 325 1 tab PO TID Pain #90 tabs 03/13/24 mg tablet promethazine 12.5 mg tablet 12.5 mg PO TID PRN allergy 03/28/24 symptoms #15 tabs Allergies Allergy/AdvReac Type Severity Reaction Status Date / Time clindamycin AdvReac Nausea Verified 02/15/24 09:40 [facility] Disclaimer: The information contained in this section may have been updated after the patient was seen, as this information can be updated by other users. Medical History Herniated disc Degenerative disc disease Colitis Surgical History Status post insertion of spinal cord stimulator Family History Other No significant family history Social History Smoking Status: Current every day smoker tobacco type: cigarettes packs per day: 1 second hand exposure: Yes alcohol intake: never substance use type: marijuana current occupational status: unemployed Travel in the last 8 weeks: None household members: spouse and children housing: house current occupational exposures/hazards: No caffeine: Yes ROS Obtained: Yes Systems reviewed as appropriate & no additional complaints except as documented Physical Exam General General appearance: alert and in no apparent distress Head Head exam: atraumatic and normocephalic ENT ENT exam: Present mucous membranes moist Neck Neck exam: Present normal inspection Chest Chest inspection: Present normal inspection and symmetric chest wall rise Respiratory Respiratory exam: Present normal lung sounds bilaterally; Absent respiratory distress Cardiovascular Cardiovascular exam: Present regular rate and normal rhythm Abdominal Exam Abdominal exam: Present soft; Absent tenderness Extremities Exam Extremities exam: Present normal inspection Back Exam Back exam: Present tenderness (Diffuse lumbar mild, palpable spinal stimulator) Neurological Exam Neurological exam: Present alert and CN II-XII intact; Absent motor sensory deficit Psychiatric Psychiatric exam: Present normal affect Skin Skin exam: Present warm and dry Medical Decision Making Nikolai Inquiry Pt receiving controlled substance: No Vital Signs: 03/28/24 10:16 03/28/24 10:24 03/28/24 10:30 Temperature 98.1 F Temperature Source Oral Pulse Rate 69 62 Pulse Rate [Radial] 67 Respiratory Rate 18 Blood Pressure 156/89 H 148/95 H Blood Pressure [Right Arm] 156/89 H Blood Pressure Mean Blood Pressure Mean [Right Arm] 111 Blood Pressure Source [Right Arm] Automatic Cuff Blood Pressure Position [Right Arm] Sitting 02 Sat by Pulse Oximetry 100 100 100 Oxygen Delivery Method Room Air 03/28/24 11:32 03/28/24 12:00 Temperature Temperature Source Pulse Rate 56 L 72 Pulse Rate [Radial] Respiratory Rate Blood Pressure 104/66 L 100/72 L Blood Pressure [Right Arm] Blood Pressure Mean 73 80 Blood Pressure Mean [Right Arm] Blood Pressure Source [Right Arm] Blood Pressure Position [Right Arm] 02 Sat by Pulse Oximetry 100 99 Oxygen Delivery Method Lab Data Lab Results 03/28/24 10:55: WBC 11.4 H, RBC 4.52, Hgb 14.4, Hct 46.2, MCV 102.2 H, MCH 31.9 H, MCHC 31.2 L, RDW 14.4, Plt Count 212, MPV 9.6, Neut % (Auto) 88.8 H, Lymph % (Auto) 8.9 L, [place] % (Auto) 1.9, Eos % (Auto) 0.1, Baso % (Auto) 0.4, Neut # (Auto) 10.1 H, Lymph # (Auto) 1.0, [place] # (Auto) 0.2, Eos # (Auto) 0.0, Baso # (Auto) 0.0, Total Counted 100, Neutrophils % (Manual) 86 H, Lymphocytes % (Manual) 12, Monocytes % (Manual) 2, Platelet Estimate Normal, Macrocytosis 1+, Sodium 141, Potassium 4.3, Chloride 106, Carbon Dioxide 28, Anion Gap 11.3, BUN 12, Creatinine 0.60, Estimated Creat Clear 116, Estimated GFR 109, Est GFR ( Amer) 131, Glucose 121 H, Calcium 9.9, Total Bilirubin 0.7, AST 33, ALT 21, Alkaline Phosphatase 64, Total Protein 7.5, Albumin 4.6, Globulin 2.9, Albumin/Globulin Ratio 1.6, Lipase 64 03/28/24 11:40: Urine Color Yellow, Urine Appearance Clear, Urine pH 8.5, Ur Specific [place] 1.015, Urine Protein Trace, Urine Glucose (UA) Negative, Urine Ketones 2+, Urine Blood 3+, Urine Nitrate Negative, Urine Bilirubin Negative, Urine Urobilinogen 0.2, Ur Leukocyte Esterase Negative, Urine RBC 3-5, Urine WBC None, Ur Squamous Epith Cells 3-5, Amorphous Sediment 2+, Urine Bacteria 2+ 03/28/24 10:55 03/28/24 10:55 Orders (Tests/Meds): ED MEDICATIONS Generic Name Dose Route Start Last Admin Trade Name Jeanmarie PRN Reason Stop Dose Admin Sodium Chloride 10 ml 03/28/24 10:57 Sodium Chloride 0.9% 10ml Flush Syringe IV 04/27/24 10:56 NEEDED PRN Maintain IV Site Discontinued Medications Generic Name Dose Route Start Last Admin Trade Name Jeanmarie PRN Reason Stop Dose Admin Acetaminophen 1,000 mg 03/28/24 10:43 03/28/24 11:03 Acetaminophen 1,000mg/100ml Vial IV 03/28/24 10:44 1,000 mg ONCE ONE Administration Ketorolac Tromethamine 30 mg 03/28/24 10:43 03/28/24 11:03 Ketorolac 30mg/Ml Vial IV 03/28/24 10:44 30 mg ONCE ONE Administration Lidocaine 1 each 03/28/24 10:45 03/28/24 11:03 Lidocaine 5% Transdermal Patch TP 03/28/24 10:46 1 each ONCE ONE Administration Promethazine HCl 25 mg 03/28/24 10:43 03/28/24 11:04 Promethazine Hcl 25mg/Ml 1ml Vial IV 03/28/24 10:44 25 mg ONCE ONE Administration Promethazine HCl 12.5 mg 03/28/24 12:31 03/28/24 12:35 Promethazine Hcl 25mg/Ml 1ml Vial IV 03/28/24 12:32 12.5 mg ONCE ONE Administration Sodium Chloride 25 ml 03/28/24 10:43 03/28/24 11:04 Sodium Chloride 0.9% 25ml Bag IV 03/28/24 10:44 25 ml ONCE ONE Administration Sodium Chloride 25 ml 03/28/24 12:31 03/28/24 12:34 Sodium Chloride 0.9% 25ml Bag IV 03/28/24 12:32 25 ml ONCE ONE Administration ORDERS Category Date Time Status CBC w/Auto Diff [Complete Blood Count Auto Diff] Stat Lab 03/28/24 10:55 Completed CMP [Comprehensive Metabolic Panel] Stat Lab 03/28/24 10:55 Completed Lipase Stat Lab 03/28/24 10:55 Completed UA [Urinalysis and Microscopic] Stat Lab 03/28/24 11:40 Completed Urine Culture Stat Micro 03/28/24 11:40 Received Medical Decision Narrative: In summary patient is a 43-year-old female past medical history described above who presents emergency department for evaluation of vomiting back pain. Patient is hemodynamically stable nontoxic-appearing upon arrival, afebrile. Differential diagnosis includes vomiting secondary to her back pain, viral syndrome, pancreatitis, urinary tract infection, among others. Workup will be conducted with hematologic labs, urinalysis. Initial inventions include multimodal pain control, Phenergan, p.o. trial. CT imaging was considered however given patient has no red flags, mild diffuse tenderness, no abdominal tenderness will be deferred. Initial workup reviewed by me, hematologic labs are nonactionable, no YAEL or critical electrolyte abnormality, no elevated lipase. Urinalysis however is not consistent with infection, no leukocyte esterase, no WBCs, nitrite negative. On repeat evaluation patient persistent vomiting for which additional 12.5 Phenergan will be administered. Patient underwent p.o. trial was successful and upon repeat evaluation vomiting had ceased. Given this patient is appropriate for discharge at this time was given return precautions. Critical Care Critical Care Time Critical Care Time: No
[2024-03-28] MEDS: KETOROLAC 30MG/ML VIAL 30 MG IV (11:03)
[2024-03-28] MEDS: LIDOCAINE 5% TRANSDERMAL PATCH 1 EACH TP (11:03)
[2024-03-28] MEDS: ACETAMINOPHEN 1,000MG/100ML VIAL 1000 MG IV (11:03)
[2024-03-28] MEDS: PROMETHAZINE HCL 25MG/ML 1ML VIAL 25 MG IV (11:04)
[2024-03-28] MEDS: SODIUM CHLORIDE 0.9% 25ML BAG 25 ML IV ×2 (11:04→12:34)
[2024-03-28 11:18] LABS: Alanine Aminotransferase 21 U/L (12-78); Albumin Level 4.6 g/dl (3.5-5.0); Albumin/Globulin Ratio 1.6 (1.1-1.8); Alkaline Phosphatase 64 U/L (38-126); Anion Gap 11.3 mEq/L (5-15); Aspartate Amino Transferase 33 U/L (14-36); Bilirubin,Total 0.7 mg/dl (0.2-1.3); Blood Urea Nitrogen 12 mg/dl (7-17); Calcium 9.9 mg/dl (8.4-10.2); Carbon Dioxide 28 mmol/L (22.0-30.0); Chloride 106 mmol/L (98-107); Creatinine Clearance Estimated 116 mL/min (50-200); Estimated Glomerular Filt Rate 109 ml/min (>60); GFR (African American) 131 ML/MIN (>60); Globulin 2.9 g/dL (1.3-3.2); Glucose 121 mg/dl (74-100); Lipase 64 U/L (23-300); Potassium 4.3 mmoL/L (3.5-5.1); Sodium 141 mmol/L (136-145); Total Protein,Serum 7.5 g/dl (6.3-8.2)
[2024-03-28 11:19] LABS: Basophils % 0.4 % (0.1-2.0); Eosinophils % 0.1 % (0.1-12.0); Hematocrit 46.2 % (37.0-47.0); Hemoglobin 14.4 g/dL (12.2-16.2); Lymphocytes % 8.9 % (10-50); Mean Corpuscular HGB Conc 31.2 g/dL (31.8-35.4); Mean Corpuscular Hemoglobin 31.9 pg (27.0-31.2); Mean Corpuscular Volume 102.2 fl (81-99); Mean Platelet Volume 9.6 fl (7.4-10.4); Monocytes # 0.2 K/mm3 (0.1-1.0); Monocytes % 1.9 % (1.7-9.3); Neutrophils # 10.1 K/mm3 (1.8-7.8); Neutrophils % 88.8 % (37.0-80.0); Platelet Count 212 K/mm3 (142-424); Red Blood Count 4.52 M/mm3 (4.20-5.40); Red Cell Distribution Width 14.4 % (11.5-17.5); White Blood Count 11.4 K/mm3 (4.8-10.8)
[2024-03-28 11:22] LABS: MANUAL DIFFERENTIAL MANUAL DIFFERENTIAL (MANUAL DIFF)
[2024-03-28 11:32] VITALS: BP 104/66; PULSE 56; O2SAT 100
[2024-03-28 11:42] LABS: Microscopic, Urine URINE MICROSCOPIC (MICROSCOPIC)
[2024-03-28 11:54] LABS: Appearance,Urine CLEAR (Clear); Bilirubin,Urine Negative (Negative); Blood, Urine 3+ (Negative); Color,Urine YELLOW (Yellow); Glucose,Urine (UA) Negative (Negative); Ketones,Urine 2+ (Negative); Leukocyte Esterase,Urine Negative (Negative); Nitrate,Urine Negative (Negative); PH,Urine 8.5 (5.0-8.5); Protein,Urine TRACE (Negative); Specific Gravity, Urine 1.015 (1.005-1.030); Urobilinogen,Urine 0.2 EU/dl (0.2)
[2024-03-28 12:00] VITALS: BP 100/72; PULSE 72; O2SAT 99
[2024-03-28 12:09] LABS: Amorphous Sediment,Urine 2+ /lpf; Bacteria,Urine 2+ /lpf
[2024-03-28 12:23] LABS: Lymphocytes % 12 % (10-50); Monocytes % 2 % (2-9); Neutrophils % 86 % (42-76); Total Cells Counted 100
[2024-03-28 12:24] LABS: Macrocytosis 1+; Platelet Estimate Normal
[2024-03-28] MEDS: PROMETHAZINE HCL 25MG/ML 1ML VIAL 12.5 MG IV (12:35)
[2024-03-28 13:00] VITALS: BP 114/74; PULSE 84; RESP 16; TEMP 36.8; O2SAT 99
== END 2024-03-28 13:06 | disposition home or self-care (01) ==
PROVIDERS: Emergency Provider Emergency Medicine; PCP Internal Medicine
DX: M54.50 Low back pain, unspecified (principal); G89.29 Other chronic pain; R11.10 Vomiting, unspecified; B96.89 Other specified bacterial agents as the cause of diseases classified elsewhere; F17.210 Nicotine dependence, cigarettes, uncomplicated
CPT/HCPCS: 80053; 81001; 83690; 85007; 85025; 87086; 96374; 96375; 96376; 99284; J0131; J1885; J2550

== ENCOUNTER 2024-05-31 13:50 | Outpatient (POV) | payer MEDICAID, SELFPAY ==
[2024-05-31 14:50] VITALS: BP 125/80; PULSE 79; RESP 16; O2SAT 99; BMI 24.7
--- NOTE | 2024-05-31 15:15 | EXP.PAIN.SOA ---
[facility] Disclaimer: The information contained in this section may have been updated after the patient was seen, as this information can be updated by other users. Medical History Herniated disc Degenerative disc disease Colitis Surgical History Status post insertion of spinal cord stimulator Family History Other No significant family history Social History Smoking Status: Current every day smoker tobacco type: cigarettes packs per day: 1 second hand exposure: Yes alcohol intake: never substance use type: marijuana current occupational status: unemployed Travel in the last 8 weeks: None household members: spouse and children housing: house current occupational exposures/hazards: No caffeine: Yes PM Subjective & Objective Subjective Subjective:: Patient is a pleasant 43-year-old female who presents today for follow-up. We are currently treating the patient for degenerative disc disease of lumbar spine with lumbar radiculopathy symptoms, chronic sacroiliitis, greater trochanteric bursitis. Today she rates her pain a 6 out of 10. Patient denies any new trauma or injury. Patient states she continues to have pain in and around her low back and bilateral hips. Patient describes it as an aching, throbbing sensation that is worse with increased activity or prolonged sitting or standing. Patient does state the pain interferes with her ability perform activities of daily living such as cooking and cleaning. She does state that she felt like the best injection she has gotten has been the sacroiliac ones. She states that these typically improve her overall function and give her more get up and go where she can do more activities around the house. She states this in combination with her pain medication prescribed by her PCP really does seem to keep all of her symptoms down. Patient is interested in repeating her prior injections. Her Nikolai has been reviewed and is appropriate. Review of Systems: General: No recent weight changes, no fever, no sleep disturbances Respiratory: No cough, no shortness of air, no recurring pulmonary infections Cardiovascular/peripheral vascular: No chest pain, no palpitations, no edema, no shortness of breath Gastrointestinal: No new onset incontinence, normal bowel movements reported Genitourinary: No new onset incontinence Musculoskeletal: Low back pain, bilateral hip pain Psychiatric: [Normal mood/affect] Neurological: [Denies weakness in extremities], [denies balance issues] Pain at rest (0-10 scale): 6 Objective Objective:: Physical Exam: General: Alert and oriented x3, no acute distress, pleasant and cooperative Lungs: Respirations even and unlabored, symmetrical chest expansion Eyes: PERRL Musculoskeletal: Flexion and extension of lumbar [spine] somewhat guarded secondary to pain, [antalgic gait noted] point tenderness along bilateral SIs with positive bilateral Alessandra's, Consuelo's, Gaenslen's, compression and distraction exam Neurological: Speech clear, no gross sensory deficit Has patient had previous pain injection?: No Conservative treatment options previously tried: Home exercise plan Length of treatment: Longer than 6 weeks Meds Home Medications and Allergies Home Medications ?Medication ?Instructions ?Recorded ?Confirmed ?Type ondansetron 4 mg disintegrating 4 mg PO Q6H PRN nausea and 07/18/23 05/31/24 Rx tablet vomiting 5 days #20 tabs hydrocodone 10 mg-acetaminophen See Rx Instructions PO TID PRN 05/15/24 05/31/24 Rx 325 mg tablet pain #45 tabs hydrocodone 10 mg-acetaminophen See Rx Instructions PO TID PRN 05/15/24 05/31/24 Rx 325 mg tablet pain 30 days #45 tabs New Prescriptions to Start Prescriptions: Allergies Allergy/AdvReac Type Severity Reaction Status Date / Time clindamycin AdvReac Nausea Verified 04/11/24 09:55 Assessment and Plan *Assessment and plan (1) Bilateral sacroiliitis: Status: Acute Category: Medical Code(s): M46.1 - Sacroiliitis, not elsewhere classified Plan Patient is experiencing worsening pain throughout her low back and bilateral hips with limited range of motion and point tenderness along her bilateral SIs. Patient did have a positive Alessandra's, Consuelo's, Gaenslen's, compression and distraction exam. I did discuss with patient that she may benefit from repeat bilateral SI injections. Risk and benefits were discussed with the patient and she would like to proceed forward with this plan of care. Patient does on average get about 80% relief with these injections lasting around 3 months. Patient's last SI injections were in January. Patient would like to proceed forward. We will submit for bilateral SI injections under fluoroscopy. Patient has tried and failed conservative therapy including continued at home stretching exercise for longer than 6 weeks. Patient has been instructed to contact the clinic with any concerns before the next appointment. Dr. Vidal has reviewed this note and agrees with this plan of care. This note was dictated using voice recognition software and make contain errors or omissions. All injections are used with Lidocaine or Bupivacaine and Depo Medrol.
== END 2024-05-31 23:59 | disposition home or self-care (01) ==
LOC: SC.PAIN 13:51
PROVIDERS: PCP Internal Medicine; Visit Provider Nurse Practitioner Family
DX: M46.1 Sacroiliitis, not elsewhere classified (principal); Z96.82 Presence of neurostimulator; F17.210 Nicotine dependence, cigarettes, uncomplicated; F12.90 Cannabis use, unspecified, uncomplicated; Z73.89 Other problems related to life management difficulty
CPT/HCPCS: 99212; G0463

== ENCOUNTER 2024-06-13 10:45 | Day surgery (SDC) | payer MEDICAID, SELFPAY ==
[2024-06-13 11:09] VITALS: BP 130/86; PULSE 93; RESP 16; TEMP 36.4; O2SAT 99; BMI 25.4
[2024-06-13] MEDS: LIDOCAINE 1% 5ML PF VIAL 5 ML (11:30)
[2024-06-13] MEDS: BUPIVACAINE 0.25% 10ML INJ 25 MG IJ (11:30)
[2024-06-13] MEDS: methylPREDNISolone ACETATE 80MG/ML VIAL 80 MG (11:30)
[2024-06-13 11:32] VITALS: BP 144/84; PULSE 78; RESP 16; O2SAT 99
[2024-06-13 11:34] VITALS: BP 151/78; PULSE 84; RESP 18; O2SAT 100
[2024-06-13 11:39] VITALS: BP 151/78; PULSE 84; RESP 18; O2SAT 100
--- NOTE | 2024-06-13 11:57 | P.PCN_ITS ---
Procedure Date: 06/13/24 Time: 11:30 Anesthesiologist:: Glenn Alvarado CRNA Complications:: None Pre-procedure Diagnosis:: Bilateral sacroiliitis Post-procedure Diagnosis:: Same. Indications for Procedure:: Patient is a very pleasant 43-year-old female comes our clinic today for bilateral sacroiliac joint injections cortisone and local anesthetic. Patient reports significant improvement terms of her overall low lumbar back pain off the midline bilaterally as well as posterior hip pain with previous injections of the sacroiliac joints. She rates her pain at a 7/10. She reports having difficulty transitioning from sitting to standing. She rates her pain 8/10. Procedure Details:: Procedure: Bilateral sacroiliac joint injections under fluoroscopy Informed consent was obtained and the risks and benefits of the procedure were explained to the patient.~ The patient was taken to the procedure room and noninvasive monitors were placed including a noninvasive blood pressure cuff and pulse oximeter.~ The patient was placed prone on the procedure table. Both hips were cleansed using Betadine as a cleansing solution. C-arm fluoroscopy was used to view the right sacroiliac joint.~ The skin and subcutaneous tissues were anesthetized using lidocaine 1.5% and a 25-gauge needle.~ After this, a 22-gauge spinal needle was inserted under fluoroscopic guidance into the inferior aspect of the right sacroiliac joint.~ Omnipaque dye was injected and good spread was seen throughout the joint.~ After this, approximately 5 mL of bupivacaine, 0.25% and Depo-Medrol, 40 mg was incrementally injected into the right sacroiliac joint. We then moved to the left sacroiliac joint.~ The skin and subcutaneous tissues were anesthetized using lidocaine 1.5% and a 25-gauge needle.~ After this, a 22- gauge spinal needle was inserted under fluoroscopic guidance into the inferior aspect of the left sacroiliac joint.~ Omnipaque dye was injected and good spread was seen throughout the joint. After this, approximately 5 mL of bupivacaine, 0.25% and Depo-Medrol, 40 mg was incrementally injected into the left sacroiliac joint.~ The patient tolerated the procedure well with no complications. The patient was observed in the Pain Clinic and then was discharged home neurologically intact. Plan and Disposition:: Patient was discharged without incident.
== END 2024-06-13 11:32 | disposition home or self-care (01) ==
LOC: SC.PAINP 10:46
PROVIDERS: PCP Internal Medicine; Visit Provider Nurse Anesthetist, Certified Registered
DX: M46.1 Sacroiliitis, not elsewhere classified (principal)
CPT/HCPCS: 27096; G0260; J1010

== ENCOUNTER 2024-07-05 15:13 | Outpatient (POV) | payer MEDICAID, SELFPAY ==
[2024-07-05 15:37] VITALS: BP 119/75; PULSE 98; RESP 18; O2SAT 100; BMI 24.7
--- NOTE | 2024-07-05 15:51 | A.OFFVIS_ITS ---
[facility] Disclaimer: The information contained in this section may have been updated after the patient was seen, as this information can be updated by other users. Medical History Cervical cancer screening Herniated disc Degenerative disc disease Colitis Surgical History Status post insertion of spinal cord stimulator Family History Other No significant family history Social History Smoking Status: Current every day smoker tobacco type: cigarettes packs per day: 1 second hand exposure: Yes alcohol intake: never substance use type: marijuana current occupational status: unemployed Travel in the last 8 weeks: None household members: spouse and children housing: house current occupational exposures/hazards: No caffeine: Yes PM Subjective & Objective Subjective Subjective:: Patient is a pleasant 43-year-old female who presents today for follow-up of bilateral SI injections on 06/13/2024. Patient does rate her pain today a 4 out of 10. Patient does state that the injections did help and rating it about 75 to 80%. Patient states that the pain is more manageable and not as severe. Patient does have a GuardiCore spinal cord stimulator in place however she does state that the coverage does not seem to be doing as well and every time she turns on the device it does cause worsening headaches. Patient states that it will be almost 5 years coming up. Patient does state that she is interested in additional options related to this. She is prescribed [place] from her PCP. Her Nikolai has been reviewed and is appropriate. Review of Systems: General: No recent weight changes, no fever, no sleep disturbances Respiratory: No cough, no shortness of air, no recurring pulmonary infections Cardiovascular/peripheral vascular: No chest pain, no palpitations, no edema, no shortness of breath Gastrointestinal: No new onset incontinence, normal bowel movements reported Genitourinary: No new onset incontinence Musculoskeletal: Low back pain Psychiatric: [Normal mood/affect] Neurological: [Denies weakness in extremities], [denies balance issues] Pain at rest (0-10 scale): 4 Objective Objective:: Physical Exam: General: Alert and oriented x3, no acute distress, pleasant and cooperative Lungs: Respirations even and unlabored, symmetrical chest expansion Eyes: PERRL Musculoskeletal: Flexion and extension of lumbar [spine] somewhat guarded secon kentrell to pain, [antalgic gait noted] Neurological: Speech clear, no gross sensory deficit Has patient had previous pain injection?: Yes Percent improvement in pain since last injection: 75 to 80% Conservative treatment options previously tried: Home exercise plan Length of treatment: Longer than 12 weeks Meds Home Medications and Allergies Home Medications ?Medication ?Instructions ?Recorded ?Confirmed ?Type ondansetron 4 mg disintegrating 4 mg PO Q6H PRN nausea and 07/18/23 07/05/24 Rx tablet vomiting 5 days #20 tabs hydrocodone 10 mg-acetaminophen See Rx Instructions PO TID PRN 07/04/24 07/05/24 Rx 325 mg tablet pain #45 tabs New Prescriptions to Start Prescriptions: Allergies Allergy/AdvReac Type Severity Reaction Status Date / Time clindamycin AdvReac Nausea Verified 07/04/24 13:06 Assessment and Plan *Assessment and plan (1) Chronic back pain: Status: Acute Qualifiers: Back pain laterality: bilateral Back pain location: low back pain Scia alethea laterality: sciatica of right side Sciatica presence: with sciatica Qualified Code(s): M54.41 - Lumbago with sciatica, right side; G89.29 - Other chronic pain Category: Medical Code(s): M54.9 - Dorsalgia, unspecified; G89.29 - Other chronic pain Plan I did discuss with the patient regarding her stimulator that since it is almost 5 years that the device has been placed and she has been reprogrammed multiple times with no additional improvement that in future it may be beneficial to replace her generator and/or leads. We did review over some of the risk and benefits at today's visit however we will follow-up with more information in future. Patient will return to clinic in 2 months for reevaluation of symptoms and plan of care. Patient has been instructed to contact the clinic with any concerns before the next appointment. Dr. Vidal has reviewed this note and agrees with this plan of care. This note was dictated using voice recognition software and make contain errors or omissions. All injections are used with Lidocaine or Bupivacaine and Depo Medrol.
== END 2024-07-05 23:59 | disposition home or self-care (01) ==
LOC: SC.PAIN 15:13
PROVIDERS: PCP Internal Medicine; Visit Provider Nurse Practitioner Family
DX: M54.41 Lumbago with sciatica, right side (principal); G89.29 Other chronic pain; Z96.82 Presence of neurostimulator; F17.210 Nicotine dependence, cigarettes, uncomplicated
CPT/HCPCS: 99212; G0463

== ENCOUNTER 2024-08-28 13:42 | Outpatient (POV) | payer MEDICAID, SELFPAY ==
--- NOTE | 2024-08-28 14:03 | A.OFFVIS_ITS ---
[facility] Disclaimer: The information contained in this section may have been updated after the patient was seen, as this information can be updated by other users. Medical History Cervical cancer screening Herniated disc Degenerative disc disease Colitis Surgical History (Updated 08/01/24 @ 13:24 by LUCI Pizarro) History of loop electrical excision procedure (LEEP) H/O tubal ligation Status post insertion of spinal cord stimulator Family History Other No significant family history Social History Smoking Status: Current every day smoker tobacco type: cigarettes packs per day: 1 second hand exposure: Yes alcohol intake: never substance use type: marijuana current occupational status: unemployed Travel in the last 8 weeks: None household members: spouse and children housing: house current occupational exposures/hazards: No caffeine: Yes PM Subjective & Objective Subjective Subjective:: Patient is a pleasant 43-year-old female who presents today for worsening pain. She rates her pain a 6 out of 10. Patient denies any new trauma or injury. Patient does state it is the same pain that she has experienced for longer than a year. She states is all across her low back bilaterally into her hips and buttocks area. She does state it does have increased aching and pressure sensations. Patient does get SI injections roughly every 3 months that do provide significant improvement on average 80% and really do decrease down the pain and provide better function. Patient does state that she would like to get scheduled for repeat injections because they are interfering with her ability to perform activities of daily living such as cooking and cleaning. Patient's last injections were on June 13. Patient does also state that she does still want to proceed forward with having her [employer] spinal cord stimulator replaced however her has some health issues going on that they have to deal with first before proceeding forward. Patient has tried and failed conservative therapy including continued at home stretching exercise for longer than 12 weeks. Her Nikolai has been reviewed and is appropriate. She is on [place] from her PCP. Review of Systems: General: No recent weight changes, no fever, no sleep disturbances Respiratory: No cough, no shortness of air, no recurring pulmonary infections Cardiovascular/peripheral vascular: No chest pain, no palpitations, no edema, no shortness of breath Gastrointestinal: No new onset incontinence, normal bowel movements reported Genitourinary: No new onset incontinence Musculoskeletal: Low back pain, bilateral hip pain Psychiatric: [Normal mood/affect] Neurological: [Denies weakness in extremities], [denies balance issues] Pain at rest (0-10 scale): 6 Objective Objective:: Physical Exam: General: Alert and oriented x3, no acute distress, pleasant and cooperative Lungs: Respirations even and unlabored, symmetrical chest expansion Eyes: PERRL Musculoskeletal: Flexion and extension of lumbar [spine] somewhat guarded secondary to pain, [antalgic gait noted] point tenderness along bilateral SIs with positive bilateral Alessandra's, Consuelo's, Gaenslen's, compression and distraction exam Neurological: Speech clear, no gross sensory deficit Has patient had previous pain injection?: No Conservative treatment options previously tried: Home exercise plan Length of treatment: Longer than 12 weeks Meds Home Medications and Allergies Home Medications ?Medication ?Instructions ?Recorded ?Confirmed ?Type ondansetron 4 mg disintegrating 4 mg PO Q6H PRN nausea and 07/18/23 08/01/24 Rx tablet vomiting 5 days #20 tabs hydrocodone 10 mg-acetaminophen See Rx Instructions PO TID PRN 08/14/24 Rx 325 mg tablet pain #45 tabs New Prescriptions to Start Prescriptions: Allergies Allergy/AdvReac Type Severity Reaction Status Date / Time clindamycin AdvReac Nausea Verified 08/01/24 13:17 Assessment and Plan *Assessment and plan (1) Bilateral sacroiliitis: Status: Acute Category: Medical Code(s): M46.1 - Sacroiliitis, not elsewhere classified Plan Patient is experiencing worsening pain in her low back and hips with limited range of motion. Patient did have point tenderness on her bilateral SIs and a positive bilateral Alessandra's, Consuelo's, Gaenslen's, compression and distraction exam. I did go over the risk and benefits of repeat SI injections and she would like to proceed forward with this plan of care. Patient does get significant improvement through these injections with approximately 80% relief on average. Patient does feel much more functional through these injections. She has tried and failed conservative therapy including oral medications, heat and ice, topicals and continued at home stretching exercise for longer than 12 weeks. Patient's last SI injections were on June 13. We will submit for repeat bilateral SI injections under fluoroscopy. Patient has been instructed to contact the clinic with any concerns before the next appointment. Dr. Vidal has reviewed this note and agrees with this plan of care. This note was dictated using voice recognition software and make contain errors or omissions. All injections are used with Lidocaine or Bupivacaine and Depo Medrol.
[2024-08-28 14:55] VITALS: BP 118/89; PULSE 97; RESP 18; O2SAT 98; BMI 24.7
== END 2024-08-28 23:59 | disposition home or self-care (01) ==
LOC: SC.PAIN 13:43
PROVIDERS: PCP Internal Medicine; Visit Provider Nurse Practitioner Family
DX: M46.1 Sacroiliitis, not elsewhere classified (principal); F17.210 Nicotine dependence, cigarettes, uncomplicated; Z96.89 Presence of other specified functional implants; Z73.89 Other problems related to life management difficulty
CPT/HCPCS: 99212; G0463

== ENCOUNTER 2024-09-26 10:40 | Day surgery (SDC) | payer MEDICAID, SELFPAY ==
[2024-09-26 11:09] VITALS: BP 143/94; PULSE 101; RESP 16; TEMP 36.8; O2SAT 98; BMI 24.7
[2024-09-26] MEDS: LIDOCAINE 1% 5ML PF VIAL 5 ML (11:28)
[2024-09-26] MEDS: BUPIVACAINE 0.25% 10ML INJ 25 MG IJ (11:28)
[2024-09-26 11:29] VITALS: BP 141/92; PULSE 94; RESP 18; O2SAT 100
[2024-09-26] MEDS: methylPREDNISolone ACETATE 80MG/ML VIAL 80 MG (11:29)
[2024-09-26 11:34] VITALS: BP 148/82; PULSE 85; RESP 16; O2SAT 100
[2024-09-26 11:36] VITALS: BP 141/92; PULSE 82; RESP 18; O2SAT 100
--- NOTE | 2024-09-26 11:56 | P.PCN_ITS ---
Procedure Date: 09/26/24 Time: 11:00 Anesthesiologist:: Glenn Alvarado CRNA Complications:: None Pre-procedure Diagnosis:: Bilateral sacroiliitis Post-procedure Diagnosis:: Same. Indications for Procedure:: Patient is a very pleasant 43-year-old female comes our clinic today for bilateral sacroiliac joint injections of cortisone and local anesthetic. She describes low lumbar back pain off the midline bilaterally. Bilateral posterior hip pain. She describes difficulty transitioning from sitting to standing. She rates her pain 7/10. Procedure Details:: Procedure: Bilateral sacroiliac joint injections under fluoroscopy Informed consent was obtained and the risks and benefits of the procedure were explained to the patient.~ The patient was taken to the procedure room and noninvasive monitors were placed including a noninvasive blood pressure cuff and pulse oximeter.~ The patient was placed prone on the procedure table. Both hips were cleansed using Betadine as a cleansing solution. C-arm fluoroscopy was used to view the right sacroiliac joint.~ The skin and subcutaneous tissues were anesthetized using lidocaine 1.5% and a 25-gauge needle.~ After this, a 22-gauge spinal needle was inserted under fluoroscopic guidance into the inferior aspect of the right sacroiliac joint.~ Omnipaque dye was injected and good spread was seen throughout the joint.~ After this, approximately 5 mL of bupivacaine, 0.25% and Depo-Medrol, 40 mg was incrementally injected into the right sacroiliac joint. We then moved to the left sacroiliac joint.~ The skin and subcutaneous tissues were anesthetized using lidocaine 1.5% and a 25-gauge needle.~ After this, a 22- gauge spinal needle was inserted under fluoroscopic guidance into the inferior aspect of the left sacroiliac joint.~ Omnipaque dye was injected and good spread was seen throughout the joint. After this, approximately 5 mL of bupivacaine, 0.25% and Depo-Medrol, 40 mg was incrementally injected into the left sacroiliac joint.~ The patient tolerated the procedure well with no complications. The patient was observed in the Pain Clinic and then was discharged home neurologically intact. Plan and Disposition:: Patient was discharged without incident.
== END 2024-09-26 11:34 | disposition home or self-care (01) ==
PROVIDERS: PCP Internal Medicine; Visit Provider Nurse Anesthetist, Certified Registered
DX: M46.1 Sacroiliitis, not elsewhere classified (principal)
CPT/HCPCS: 27096; G0260; J1010

== ENCOUNTER 2024-11-06 09:38 | Outpatient (POV) | payer MEDICAID, SELFPAY ==
--- NOTE | 2024-11-06 10:13 | EXP.PAIN.SOA ---
[facility] Disclaimer: The information contained in this section may have been updated after the patient was seen, as this information can be updated by other users. Medical History Cervical cancer screening Herniated disc Degenerative disc disease Colitis Surgical History History of loop electrical excision procedure (LEEP) H/O tubal ligation Status post insertion of spinal cord stimulator Family History Other No significant family history Social History Smoking Status: Current every day smoker tobacco type: cigarettes packs per day: 1 second hand exposure: Yes alcohol intake: never substance use type: marijuana current occupational status: unemployed Travel in the last 8 weeks: None household members: spouse and children housing: house current occupational exposures/hazards: No caffeine: Yes PM Subjective & Objective Subjective Subjective:: Patient is a pleasant 44-year-old female who presents today for follow-up of bilateral SI injections on 09/26/2024. Patient does rate her pain today a 6 out of 10. She does state that she is still having more pain along the left side. She states that it is very bothersome when it does act up. She denies any recent falls or changes. She does state that her is scheduled for surgery coming up and that she knows she will be unavailable to come to any office appointments over the next couple of months. She is prescribed Nicholson from her PCP. Her Nikolai has been reviewed and is appropriate. Review of Systems: General: No recent weight changes, no fever, no sleep disturbances Respiratory: No cough, no shortness of air, no recurring pulmonary infections Cardiovascular/peripheral vascular: No chest pain, no palpitations, no edema, no shortness of breath Gastrointestinal: No new onset incontinence, normal bowel movements reported Genitourinary: No new onset incontinence Musculoskeletal: Low back pain left-sided Psychiatric: [Normal mood/affect] Neurological: [Denies weakness in extremities], [denies balance issues] Pain at rest (0-10 scale): 6 Objective Objective:: Physical Exam: General: Alert and oriented x3, no acute distress, pleasant and cooperative Lungs: Respirations even and unlabored, symmetrical chest expansion Eyes: PERRL Musculoskeletal: Flexion and extension of lumbar [spine] somewhat guarded secondary to pain, [antalgic gait noted] Neurological: Speech clear, no gross sensory deficit Has patient had previous pain injection?: Yes Percent improvement in pain since last injection: Temporary Conservative treatment options previously tried: Home exercise plan Length of treatment: Longer than 12 weeks Meds Home Medications and Allergies Home Medications ?Medication ?Instructions ?Recorded ?Confirmed ?Type ondansetron 4 mg disintegrating 4 mg PO Q6H PRN nausea and 07/18/23 09/28/24 Rx tablet vomiting 5 days #20 tabs bupropion HCl 150 mg tablet,12 hr 150 mg PO DAILY #30 ea 09/28/24 09/28/24 Rx sustained-release (Wellbutrin SR) hydrocodone 10 mg-acetaminophen See Rx Instructions PO TID PRN 09/28/24 09/28/24 Rx 325 mg tablet pain #45 tabs hydrocodone 10 mg-acetaminophen See Rx Instructions PO TID PRN 09/28/24 09/28/24 Rx 325 mg tablet pain 30 days #45 tabs New Prescriptions to Start Prescriptions: Allergies Allergy/AdvReac Type Severity Reaction Status Date / Time clindamycin AdvReac Nausea Verified 09/28/24 13:33 Assessment and Plan *Assessment and plan (1) Bilateral sacroiliitis: Status: Acute Category: Medical Code(s): M46.1 - Sacroiliitis, not elsewhere classified (2) Lumbar disc disease with radiculopathy: Status: Acute Category: Medical Code(s): M51.16 - Intervertebral disc disorders with radiculopathy, lumbar region (3) Degenerative disc disease: Status: Chronic Qualifiers: Spinal region: lumbar Qualified Code(s): M51.36 - Other intervertebral disc degeneration, lumbar region Category: Medical Plan I will send in a 5-day dose of prednisone 20 mg twice daily. Patient will return to clinic in 2 months for reevaluation of symptoms and plan of care. Patient has been instructed to contact the clinic with any concerns before the next appointment. Dr. Vidal has reviewed this note and agrees with this plan of care. This note was dictated using voice recognition software and make contain errors or omissions. All injections are used with Lidocaine, Bupivacaine and Depo Medrol. Occasionally urine drug screen is needed to verify patient's compliance with our office pain contract. This is ordered based off specific treatments related to chronic pain with the potential to abuse certain medications.
[2024-11-06 11:12] VITALS: BP 126/93; PULSE 86; RESP 14; O2SAT 98; BMI 24.7
== END 2024-11-06 23:59 | disposition home or self-care (01) ==
PROVIDERS: PCP Internal Medicine; Visit Provider Nurse Practitioner Family
DX: M46.1 Sacroiliitis, not elsewhere classified (principal); M51.16 Intervertebral disc disorders with radiculopathy, lumbar region; F17.210 Nicotine dependence, cigarettes, uncomplicated
CPT/HCPCS: 99212; G0463

== ENCOUNTER 2025-01-04 14:18 | Outpatient (POV) | payer MEDICAID, SELFPAY ==
[2025-01-04 14:38] VITALS: BP 127/74; PULSE 102; RESP 16; O2SAT 100; BMI 23.8
--- NOTE | 2025-01-04 14:40 | A.OFFVIS_ITS ---
[facility] Disclaimer: The information contained in this section may have been updated after the patient was seen, as this information can be updated by other users. Medical History Cervical cancer screening Herniated disc Degenerative disc disease Colitis Surgical History History of loop electrical excision procedure (LEEP) H/O tubal ligation Status post insertion of spinal cord stimulator Family History Other No significant family history Social History Smoking Status: Current every day smoker tobacco type: cigarettes packs per day: 1 second hand exposure: Yes alcohol intake: never substance use type: marijuana current occupational status: other Travel in the last 8 weeks: None household members: spouse and children housing: house current occupational exposures/hazards: No caffeine: Yes PM Subjective & Objective Subjective Subjective:: Patient is a pleasant 44-year-old female who presents today for worsening pain in her low back and bilateral hips. She does rated a 7 out of 10. She denies any new trauma or injury. She just states that she continues to have worsening pain in the same area that it is now just very tender to touch or even sit for prolonged. She states that any little thing causes significant disability and trouble performing activities of daily living such as cooking and cleaning. Patient would like to see about repeating additional injections. Patient does feel like it is still that same SI pain that she has had chronically. Patient has tried oral medications including [place] from her primary care along with heat and ice and topicals with minimal relief. Patient has had SI injections in the past that have provided significant relief. Some injections have worked better than others. She does state on average she does get 80% relief it just varies on how long it lasts. Patient does state that she has had some that have lasted 3 months. She states that some have done more for 2 weeks and then continued to help bring the pain down to where it was manageable and not as severe. Patient does also have a spinal cord stimulator that has been in place for over 5 years. Patient does state that she cannot turn it on and leave it on for very long due to worsening pain symptoms. We have discussed about replacing this device and she does state today that she is wanting to proceed forward with this option. Her Nikolai has been reviewed and is appropriate. Review of Systems: General: No recent weight changes, no fever, no sleep disturbances Respiratory: No cough, no shortness of air, no recurring pulmonary infections Cardiovascular/peripheral vascular: No chest pain, no palpitations, no edema, no shortness of breath Gastrointestinal: No new onset incontinence, normal bowel movements reported Genitourinary: No new onset incontinence Musculoskeletal: Low back pain, bilateral hip pain Psychiatric: [Normal mood/affect] Neurological: [Denies weakness in extremities], [denies balance issues] Pain at rest (0-10 scale): 7 Objective Objective:: Physical Exam: General: Alert and oriented x3, no acute distress, pleasant and cooperative Lungs: Respirations even and unlabored, symmetrical chest expansion Eyes: PERRL Musculoskeletal: Flexion and extension of lumbar [spine] somewhat guarded secondary to pain, [antalgic gait noted] point tenderness along bilateral SIs with positive bilateral Alessandra's, Consuelo's, Gaenslen's, compression and distraction exam Neurological: Speech clear, no gross sensory deficit Has patient had previous pain injection?: No Conservative treatment options previously tried: Home exercise plan Length of treatment: Longer than 12 weeks Meds Home Medications and Allergies Home Medications ?Medication ?Instructions ?Recorded ?Confirmed ?Type ondansetron 4 mg disintegrating 4 mg PO Q6H PRN nausea and 07/18/23 12/20/24 Rx tablet vomiting 5 days #20 tabs bupropion HCl 150 mg tablet,12 hr 150 mg PO DAILY #30 ea 09/28/24 12/20/24 Rx sustained-release (Wellbutrin SR) hydrocodone 10 mg-acetaminophen See Rx Instructions PO TID PRN 09/28/24 12/20/24 Rx 325 mg tablet pain 30 days #45 tabs hydrocodone 10 mg-acetaminophen See Rx Instructions PO TID PRN 12/11/24 12/20/24 Rx 325 mg tablet pain #45 tabs New Prescriptions to Start Prescriptions: Allergies Allergy/AdvReac Type Severity Reaction Status Date / Time clindamycin AdvReac Nausea Verified 12/20/24 13:27 Assessment and Plan *Assessment and plan (1) Bilateral sacroiliitis: Status: Acute Category: Medical Code(s): M46.1 - Sacroiliitis, not elsewhere classified (2) Chronic back pain: Status: Acute Qualifiers: Back pain laterality: bilateral Back pain location: low back pain Sciatica laterality: sciatica of right side Sciatica presence: with sciatica Qualified Code(s): M54.41 - Lumbago with sciatica, right side; G89.29 - Other chronic pain Category: Medical Code(s): M54.9 - Dorsalgia, unspecified; G89.29 - Other chronic pain (3) Status post insertion of spinal cord stimulator: Status: Acute Category: Surgical Code(s): Z96.89 - Presence of other specified functional implants Plan Patient is experiencing worsening pain along the low back and bilateral hips. They did have limited range of motion of the lumbar spine along with point tenderness along bilateral SI joints and a positive bilateral Alessandra's, Consuelo's, Gaenslen's, compression and distraction exam. I did discuss with the patient that I do believe they would benefit from bilateral SI injections. Risk and benefits were discussed with the patient and they would like to proceed forward with this option. Patient has tried and failed conservative therapy including continued at home stretching exercise for longer than 12 weeks in between injections. Patient had her last SI injection back in September that did provide 80% relief and did overall decrease the severity of her pain for 3 months per patient. Patient does want to try for these injections again. I did discuss with her that if she gets significant improvement that she may be a future SI fusion candidate. We will follow-up with this and additional appointments. I will also order the patient an x-ray imaging of her thoracic and lumbar spine to verify lead placement. Patient was counseled that if her leads have moved that could be additional reasons why she is not getting the coverage like she previously had. We did review over risk and benefits of the replacement. Patient will be scheduled for bilateral SI injections under fluoroscopy. We will plan on injecting 1 mL of solution in this joint space. Patient has had this pain for longer than 6 months. Patient has been instructed to contact the clinic with any concerns before the next appointment. Dr. Vidal has reviewed this note and agrees with this plan of care. This note was dictated using voice recognition software and make contain errors or omissions. All injections are used with Lidocaine or Bupivacaine and Depo Medrol.
--- NOTE | 2025-01-04 14:46 | XR_ITS ---
FINAL REPORT CLINICAL HISTORY: Verify lead placement, low back pain FINDINGS: LUMBAR SPINE 2 views were obtained. There is no acute fracture. Vertebrae are normal height. There is no malalignment. There is mild to space narrowing at L5-S1. Spina bifida occulta is noted at L5. A stimulator is noted. Stimulator leads lie off the superior margin of the film. IMPRESSION: Degenerative changes with no acute bony abnormality. Stimulator leads lie off the superior margin of the film. Reviewed, Interpreted and Dictated by Victor M Brown MD Transcribed by Itzel Kasper Authenticated and . [facility]
--- NOTE | 2025-01-04 14:46 | XR_ITS ---
FINAL REPORT CLINICAL HISTORY: Verify lead placement pain FINDINGS: THORACIC SPINE 2 views were obtained. There is no acute fracture. Vertebrae are normal height. There is no malalignment. The disc spaces are preserved. There is no soft tissue abnormality. A stimulator is present. Stimulator leads extend from T7-T9. IMPRESSION: No acute bony abnormality. Stimulator leads extend from T7-T9. Reviewed, Interpreted and Dictated by Victor M Brown MD Transcribed by Itzel Kasper Authenticated and [facility]
== END 2025-01-04 23:59 | disposition home or self-care (01) ==
PROVIDERS: PCP Internal Medicine; Visit Provider Nurse Practitioner Family
DX: M46.1 Sacroiliitis, not elsewhere classified (principal); Z96.89 Presence of other specified functional implants; M54.41 Lumbago with sciatica, right side; G89.29 Other chronic pain; F17.210 Nicotine dependence, cigarettes, uncomplicated; Z73.89 Other problems related to life management difficulty
CPT/HCPCS: 72072; 72100; 99212; G0463

== ENCOUNTER 2025-02-06 10:00 | Day surgery (SDC) | payer MEDICAID, SELFPAY ==
[2025-02-06 10:14] VITALS: BP 128/86; PULSE 106; PULSE 87; RESP 18; O2SAT 100
[2025-02-06 10:20] VITALS: BP 116/80; PULSE 101; RESP 16; TEMP 36.6; O2SAT 100; BMI 24.7
[2025-02-06] MEDS: BUPIVACAINE 0.25% 10ML INJ 25 MG IJ (10:23)
[2025-02-06] MEDS: DEXAMETHASONE 10MG/ML 1ML VIAL 10 MG (10:23)
[2025-02-06] MEDS: LIDOCAINE 1% 5ML PF VIAL 5 ML (10:23)
[2025-02-06 10:32] VITALS: BP 126/71; PULSE 85; RESP 16; O2SAT 100
--- NOTE | 2025-02-06 10:42 | P.PCN_ITS ---
Procedure Date: 02/06/25 Time: 10:20 Anesthesiologist:: Glenn Alvarado CRNA Complications:: None Pre-procedure Diagnosis:: Bilateral sacroiliitis Post-procedure Diagnosis:: Same Indications for Procedure:: Patient is a very pleasant 44-year-old female comes our clinic today for bilateral sacroiliac joint injections cortisone local anesthetic. Patient describes low lumbar back pain off the midline bilaterally. Bilateral posterior hip pain. Difficulty transitioning from sitting to standing. Difficulty with ambulation due to low lumbar back pain. Patient rates her pain 7/10. Procedure Details:: Procedure: Bilateral sacroiliac joint injections under fluoroscopy Informed consent was obtained and the risks and benefits of the procedure were explained to the patient.~ The patient was taken to the procedure room and noninvasive monitors were placed including a noninvasive blood pressure cuff and pulse oximeter.~ The patient was placed prone on the procedure table. Both hips were cleansed using Betadine as a cleansing solution. C-arm fluoroscopy was used to view the right sacroiliac joint.~ The skin and subcutaneous tissues were anesthetized using lidocaine 1.5% and a 25-gauge needle.~ After this, a 22-gauge spinal needle was inserted under fluoroscopic guidance into the inferior aspect of the right sacroiliac joint.~ Omnipaque dye was injected and good spread was seen throughout the joint.~ After this, approximately 5 mL of bupivacaine, 0.25% and Depo-Medrol, 40 mg was incrementally injected into the right sacroiliac joint. We then moved to the left sacroiliac joint.~ The skin and subcutaneous tissues were anesthetized using lidocaine 1.5% and a 25-gauge needle.~ After this, a 22- gauge spinal needle was inserted under fluoroscopic guidance into the inferior aspect of the left sacroiliac joint.~ Omnipaque dye was injected and good spread was seen throughout the joint. After this, approximately 5 mL of bupivacaine, 0.25% and Depo-Medrol, 40 mg was incrementally injected into the left sacroiliac joint.~ The patient tolerated the procedure well with no complications. The patient was observed in the Pain Clinic and then was discharged home neurologically intact. Plan and Disposition:: Patient was discharged without incident.
== END 2025-02-06 10:32 | disposition home or self-care (01) ==
LOC: SC.PAINP 10:00
PROVIDERS: PCP Internal Medicine; Visit Provider Nurse Anesthetist, Certified Registered
DX: M46.1 Sacroiliitis, not elsewhere classified (principal)
CPT/HCPCS: 27096; G0260; J1100

== ENCOUNTER 2025-03-13 13:50 | Outpatient (POV) | payer MEDICAID, SELFPAY ==
--- NOTE | 2025-03-13 14:08 | A.OFFVIS_ITS ---
[facility] Disclaimer: The information contained in this section may have been updated after the patient was seen, as this information can be updated by other users. Medical History Cervical cancer screening Herniated disc Degenerative disc disease Colitis Surgical History History of loop electrical excision procedure (LEEP) H/O tubal ligation Status post insertion of spinal cord stimulator Family History Other No significant family history Social History Smoking Status: Current every day smoker tobacco type: cigarettes packs per day: 1 second hand exposure: Yes alcohol intake: never substance use type: marijuana current occupational status: other Travel in the last 8 weeks?: None household members: spouse and children housing: house current occupational exposures/hazards: No caffeine: Yes PM Subjective & Objective Subjective Subjective:: Patient is a pleasant 44-year-old female who presents today for follow-up of her bilateral SI injections. Today she rates her pain a 7 out of 10. She denies any new falls or injuries. She does however state that this injection was actually very painful and actually really aggravated her symptoms. Patient has never had this experience before with these injections. She states that it took several days for it to ease down. Patient states she is still having chronic low back and hip pain even today. Patient does also state that she is lost her primary care who did prescribe her [place] medicine. Patient is in the process of trying to get a new provider and feels like this is overall not helping make her pain any better. Patient denies any other changes. Her Nikolai has been reviewed and is appropriate. Review of Systems: General: No recent weight changes, no fever, no sleep disturbances Respiratory: No cough, no shortness of air, no recurring pulmonary infections Cardiovascular/peripheral vascular: No chest pain, no palpitations, no edema, no shortness of breath Gastrointestinal: No new onset incontinence, normal bowel movements reported Genitourinary: No new onset incontinence Musculoskeletal: Low back pain, bilateral hip pain Psychiatric: [Normal mood/affect] Neurological: [Denies weakness in extremities], [denies balance issues] Pain at rest (0-10 scale): 7 Objective Objective:: Physical Exam: General: Alert and oriented x3, no acute distress, pleasant and cooperative Lungs: Respirations even and unlabored, symmetrical chest expansion Eyes: PERRL Musculoskeletal: Flexion and extension of lumbar [spine] somewhat guarded secondary to pain, [antalgic gait noted] Neurological: Speech clear, no gross sensory deficit Has patient had previous pain injection?: Yes Percent improvement in pain since last injection: Worse Conservative treatment options previously tried: Home exercise plan Length of treatment: Longer than 12 weeks Meds Home Medications and Allergies Home Medications ?Medication ?Instructions ?Recorded ?Confirmed ?Type ondansetron 4 mg disintegrating 4 mg PO Q6H PRN nausea and 07/18/23 02/06/25 Rx tablet vomiting 5 days #20 tabs bupropion HCl 150 mg tablet,12 hr 150 mg PO DAILY #30 ea 09/28/24 02/06/25 Rx sustained-release (Wellbutrin SR) hydrocodone 10 mg-acetaminophen See Rx Instructions PO TID PRN 09/28/24 02/06/25 Rx 325 mg tablet pain 30 days #45 tabs hydrocodone 10 mg-acetaminophen See Rx Instructions PO TID PRN 12/11/24 02/06/25 Rx 325 mg tablet pain #45 tabs New Prescriptions to Start Prescriptions: Allergies Allergy/AdvReac Type Severity Reaction Status Date / Time clindamycin AdvReac Nausea Verified 12/20/24 13:27 Assessment and Plan *Assessment and plan (1) Bilateral sacroiliitis: Status: Acute Category: Medical Code(s): M46.1 - Sacroiliitis, not elsewhere classified Plan Patient generally gets significant relief through these injections however that this injection did actually aggravate her overall symptoms. We did discuss that we will hold off on any type of injections for a little while and see how she does over the next couple of months. Patient will return to clinic in 2 months for reevaluation of symptoms and plan of care. Patient has been instructed to contact the clinic with any concerns before the next appointment. Dr. Vidal has reviewed this note and agrees with this plan of care. This note was dictated using voice recognition software and make contain errors or omissions. All injections are used with Lidocaine, Bupivacaine and dexamethasone. Occasionally urine drug screen is needed to verify patient's compliance with our office pain contract. This is ordered based off specific treatments related to chronic pain with the potential to abuse certain medications.
[2025-03-13 14:58] VITALS: BP 113/86; PULSE 107; RESP 18; O2SAT 100; BMI 22.8
== END 2025-03-13 23:59 | disposition home or self-care (01) ==
LOC: SC.PAIN 13:51
PROVIDERS: Visit Provider Nurse Practitioner Family
DX: M46.1 Sacroiliitis, not elsewhere classified (principal); Z79.891 Long term (current) use of opiate analgesic
CPT/HCPCS: 99212; G0463

== ENCOUNTER 2025-04-10 04:36 | Observation (INO) | payer MEDICAID, SELFPAY ==
[2025-04-10] VITALS (13 sets, daily range): BP systolic 110–148; BP diastolic 68–107; PULSE 77–138; RESP 16–24; TEMP 36.6–37; O2SAT 94–100; BMI 22.8; BMI 23.7
--- NOTE | 2025-04-10 04:36 | ECG_ITS ---
APPROVED REPORT Exam: Resting ECG HR:122 bpm ECG Measurements Heart Rate 122 AXES UT 120 P 80 QRSd 85 QRS 81 QT 337 T -79 QTc [address] DEVIATION AND MODERATE T-WAVE ABNORMALITY, CONSIDER INFERIOR ISCHEMIA [-0.1+ mV T-WAVE IN II/aVF] No STEMI Electronically signed by : ALY PAIZ, 04/11/2025 06:53:35
--- NOTE | 2025-04-10 04:42 | PC.NURSE ---
respiratory contacted regarding the need for VBG to be ran
--- NOTE | 2025-04-10 04:44 | CT_ITS ---
FINAL REPORT TECHNIQUE: The patient was injected with IV contrast. Axial images were obtained through the chest in a PE protocol. 3-D reconstruction images were also performed. Individualized dose reduction techniques using automated exposure control or adjustment of the MA and/or KV according to patient's size were employed. CLINICAL HISTORY: soa cough L side CP tachy COMPARISON: None FINDINGS: Mediastinal vasculature is suboptimally opacified, however no definite central pulmonary artery filling defects are identified to suggest PE. There is no aortic dissection. There is no axillary adenopathy. There are a few small scattered mediastinal nodes identified. There is soft tissue density in the anteromedial mediastinum that likely represents residual thymus. The heart size is normal. There is no pericardial or pleural effusion. Limited images of the upper abdomen are unremarkable. There are multiple scattered pleural and parenchymal opacities in the anteromedial lingula and right upper lobe, as well as in the lung bases greater on the left than on the right, best seen on images #104 through 107 of series 5. There are numerous ill-defined nodular opacities, examples including in the left upper lobe on image #29 of series 5, a 5 mm nodule, in the right upper lobe a 5 mm nodule seen on image #58 of series 5. Associated peribronchial wall thickening is noted. These findings most likely represent inflammatory or postinflammatory changes. IMPRESSION: No central pulmonary embolus or dissection, although there is suboptimal opacification of the pulmonary arteries. There are numerous nodular appearing opacities in the lung styles bilaterally as described above. These most likely represent inflammatory/postinflammatory changes. Recommend follow-up CT in 4 to 6 weeks for further evaluation. Reviewed, Interpreted and Dictated by Victor M Brown MD Transcribed by Tonja Garcia Authenticated and . [facility]
--- NOTE | 2025-04-10 04:45 | XR_ITS ---
FINAL REPORT CLINICAL HISTORY: cough L side CP COMPARISON: None FINDINGS: CHEST SINGLE VIEW: The heart size is normal. A spinal stimulator is noted overlying the mid thoracic region. The mediastinum is normal. Mild chronic appearing changes are noted in the lung bases bilaterally. There are no pleural effusions. There is no pneumothorax. There is no osseous abnormality. IMPRESSION: Mild chronic appearing changes are noted in the lung bases bilaterally. Reviewed, Interpreted and Dictated by Victor M Brown MD Transcribed by Tonja Garcia Authenticated and [facility]
[2025-04-10 04:46] LABS: Hematocrit 42.5 % (37.0-47.0); Hemoglobin 14.6 g/dL (12.2-16.2); Immature Granulocytes % 0.5 %; Mean Corpuscular HGB Conc 34.4 g/dL (31.8-35.4); Mean Corpuscular Hemoglobin 30.7 pg (27.0-31.2); Mean Corpuscular Volume 89.5 fl (81-99); Nucleated Red Blood Cells % 0 %; Platelet Count 316 K/mm3 (142-424); Red Blood Count 4.75 M/mm3 (4.20-5.40); Red Cell Distribution Width-SD 44.6 fL; White Blood Count 20.4 K/mm3 (4.8-10.8)
[2025-04-10 04:50] LABS: Lactate Venous 1.3 mmol/L (0.4-2.0); VBG HCO3 25.4 mmol/L (23-30); VBG PCO2 43.1 mmol/L (35-51); VBG PH 7.39 mmol/L (7.31-7.41); VBG PO2 43.2 mmol/L (28-40)
[2025-04-10 04:51] LABS: Albumin Level 4.6 g/dl (3.5-5.0); Chloride 98 mmol/L (98-107); Potassium 3.5 mmoL/L (3.5-5.1); Sodium 140 mmol/L (136-145)
[2025-04-10 04:54] LABS: Alanine Aminotransferase 18 U/L (12-78); Albumin/Globulin Ratio 1.1 (1.1-1.8); Alkaline Phosphatase 102 U/L (38-126); Anion Gap 15.5 mEq/L (5-15); Aspartate Amino Transferase 24 U/L (14-36); Bilirubin,Total 0.6 mg/dl (0.2-1.3); Blood Urea Nitrogen 4 mg/dl (7-17); Calcium 10.1 mg/dl (8.4-10.2); Carbon Dioxide 30 mmol/L (22.0-30.0); Creatinine Clearance Estimated 127 mL/min (50-200); Creatinine,Serum 0.50 mg/dl (0.52-1.04); Estimated Glomerular Filt Rate 133 ml/min (>60); GFR (African American) 161 ML/MIN (>60); Globulin 4.2 g/dL (1.3-3.2); Glucose 120 mg/dl (74-100); Total Protein,Serum 8.8 g/dl (6.3-8.2)
[2025-04-10] MEDS: ASPIRIN 81MG CHEWABLE TABLET 324 MG PO (04:54)
[2025-04-10] MEDS: NITROGLYCERIN 0.4MG SL TABLET 0.4 MG SL (04:54)
--- NOTE | 2025-04-10 05:01 | ED_ITS ---
Discharge Plan Disposition Patient Disposition: Admitted Condition: Fair Prescriptions Prescriptions: No Action amoxicillin 875 mg tablet 875 mg PO BID Qty: 20 0RF albuterol sulfate [Ventolin HFA] 90 mcg/actuation HFA aerosol inhaler 1 inh inhalation QID PRN (Reason: shortness of breath or wheezing) Qty: 6.7 0RF Referrals Follow up/Referrals: Provider,Referral, [Primary Care Provider, Medical] - See instructions Clinical Impressions Clinical Impression: Sepsis, Pulmonary nodule, Acute hypoxic respiratory failure Print Language Print Language: [place] Discharge ED Provider: Gene Davison General Chief Complaint: Chest Pain Stated Complaint: Chest Pain Time Seen by Provider: 04/10/25 04:38 Mode of Arrival: Ambulatory Source of Information: Patient Description of Symptoms (Recalled from ER Triage Doc. by RN): Pt presents for evaluation of left sided chest pain that began approx 4 days ago with associated SOA and productive cough that produces green/yellow sputum. Pt reports pain with insipiration and not able to take deep breaths. Ot reports associated chills and sweating at random times. History of Present Illness HPI narrative: 44-year-old female with history of tobacco use, marijuana use, lumbar radiculopathy, depression presents to the ER with complaints of left-sided chest pain. Patient reports for the last 4 days she has been having some left-sided chest pain with cough and shortness of breath. Reportedly it worsened approximately 1 hour prior to arrival. Patient reports worse pain with deep inspiration and with coughing. She has also been having random chills and sweats. She reports she has never been diagnosed with COPD but does have an inhaler at home that she has taken a few times without relief of symptoms. No vomiting or diarrhea, no new swelling in the feet or legs. No personal cardiac history. She reports the pain in the left chest as sharp and stabbing, nonradiating. Related Data Previous Rx's ?Medication ?Instructions ?Recorded albuterol sulfate 90 mcg/actuation 1 inh inhalation QI D PRN shortness 03/19/25 aerosol inhaler (Ventolin HFA) of breath or wheezing # 6.7 grams amoxicillin 875 mg tablet 875 mg PO BID #20 tabs 03/19 Allergies Allergy/AdvReac Type Severity Reaction Status Date / Time clindamycin AdvReac Nausea Verified 03/19/25 18:59 PFSH PFSH Disclaimer: The information contained in this section may have been updated after the patient was seen, as this information can be updated by other users. Medical History Cervical cancer screening Herniated disc Degenerative disc disease Colitis Surgical History History of loop electrical excision procedure (LEEP) H/O tubal ligation Status post insertion of spinal cord stimulator Family History Other No significant family history Social History Smoking Status: Current every day smoker tobacco type: cigarettes packs per day: 1 second hand exposure: Yes alcohol intake: never substance use type: marijuana current occupational status: other Travel in the last 8 weeks?: None household members: spouse and children housing: house current occupational exposures/hazards: No caffeine: Yes Other Medical History Have you received the Flu Vaccine for this season: No Have you received the Pneumonia Vaccine: No ROS Obtained: Yes Systems reviewed as appropriate & no additional complaints except as documented Per HPI Physical Exam General General appearance: alert and in no apparent distress Head Head exam: atraumatic and normocephalic Eye Eye exam: Present PERRL and EOMI ENT ENT exam: Present mucous membranes moist Neck Neck exam: Present normal inspection and full ROM Chest Chest inspection: Present symmetric chest wall rise Respiratory Respiratory exam: Present wheezes (Bilateral expiratory) and other (No rhonchi or rales); Absent respiratory distress, stridor or accessory muscle use Cardiovascular Cardiovascular exam: Present normal rhythm and tachycardia Abdominal Exam Abdominal exam: Present soft; Absent distention or tenderness Extremities Exam Extremities exam: Present full ROM; Absent edema Neurological Exam Neurological exam: Present alert and oriented X3; Absent motor sensory deficit Psychiatric Psychiatric exam: Present normal affect and normal mood Skin Skin exam: Present warm and dry HEART Score HEART Score HEART Score assessment performed?: Yes History (anamnesis): Slightly suspicious ECG: Non-specific disturbance Age: 45-65 years Risk factors: 1-2 risk factors Troponin: </= normal limit HEART Score: 3 Critical Care Critical Care Time Critical Care Time: Yes Attestation: On 04/10/25, the high probability of a clinically significant, sudden or life threatening deterioration of the following system(s) required my full and direct attention, intervention and personal management. The time I documented below is in addition to time spent performing reported procedures but includes the following listed in this critical care notation. Total Time Total Critical Care Time: 35 Medical Decision Making Medical Records Medical records reviewed: Yes I reviewed the patient's medical records. Nikolai Inquiry Pt receiving controlled substance: No Vital Signs Vital Signs: 04/10/25 04:38 04/10/25 05:23 04/10/25 05:26 Temperature 98.6 F Temperature Source Oral Pulse Rate 106 H Pulse Rate [Radial] 138 H Respiratory Rate 16 21 Blood Pressure 141/107 H Blood Pressure [Right Arm] 148/104 H Blood Pressure Mean [Right Arm] 118 Blood Pressure Position [Right Arm] Sitting 02 Sat by Pulse Oximetry 95 100 95 Oxygen Delivery Method Room Air Nasal Cannula Oxygen Flow Rate (LPM) 2 04/10/25 05:26 04/10/25 05:30 Temperature Temperature Source Pulse Rate 112 H 107 H Pulse Rate [Radial] Respiratory Rate 19 Blood Pressure 110/78 Blood Pressure [Right Arm] Blood Pressure Mean [Right Arm] Blood Pressure Position [Right Arm] 02 Sat by Pulse Oximetry 97 Oxygen Delivery Method Oxygen Flow Rate (LPM) Lab Data Labs: Lab Results 04/10/25 04:38: WBC 20.4 H*, RBC 4.75, Hgb 14.6, Hct 42.5, MCV 89.5, MCH 30.7, MCHC 34.4, RDW 13.7, Plt Count 316, MPV 11.8 H, Neut % (Auto) 70.8, Lymph % (Auto) 20.3, [place] % (Auto) 7.5, Eos % (Auto) 0.5, Baso % (Auto) 0.4, Neut # (Auto) 14.4 H, Lymph # (Auto) 4.1, [place] # (Auto) 1.5 H, Eos # (Auto) 0.1, Baso # (Auto) 0.1, VBG pH 7.39, VBG pCO2 43.1, VBG pO2 43.2 H, VBG HCO3 25.4, VBG Total CO2 26.7, VBG O2 Saturation 80.0 H, VBG Base Excess 0.4, VBG Lactic Acid 1.3, Sodium 140, Potassium 3.5, Chloride 98, Carbon Dioxide 30, Anion Gap 15.5 H, BUN 4 L, Creatinine 0.50 L, Estimated Creat Clear 127, Estimated GFR 133, Est GFR ( Amer) 161, Glucose 120 H, Calcium 10.1, Total Bilirubin 0.6, AST 24, ALT 18, Alkaline Phosphatase 102, Troponin I < 0.01, Total Protein 8.8 H, Albumin 4.6, Globulin 4.2 H, Albumin/Globulin Ratio 1.1 04/10/25 05:01: Lactate 1.0 04/10/25 05:20: Urine Color Yellow, Urine Appearance Clear, Urine pH 6.5, Ur Specific [place] <= 1.005, Urine Protein Negative, Urine Glucose (UA) Negative, Urine Ketones Negative, Urine Blood Negative, Urine Nitrate Negative, Urine Bilirubin Negative, Urine Urobilinogen 0.2, Ur Leukocyte Esterase Negative 04/10/25 04:38 04/10/25 04:38 Response Orders (Tests/Meds): ED MEDICATIONS Generic Name Dose Route Start Last Admin Trade Name Freq PRN Reason Stop Dose Admin Ceftriaxone Sodium 2 gm/ 100 mls @ 200 mls/hr 04/10/25 05:00 04/10/25 05:19 Sodium Chloride IV 04/20/25 04:59 200 mls/hr Q24H THELMA Administration Lactated Ringer's 1,710 mls @ 999 mls/hr 04/10/25 04:52 04/10/25 05:05 Lactated Ringer's 1000 Ml Bag IV 04/10/25 06:27 999 mls/hr .Q1H43M ONE Administration Vancomycin/PEG/NADA/Lysine/Water 1.25 gm in 250 mls @ 125 mls/hr 04/10/25 05:00 04/10/25 05:31 Vancomycin 1.25gm/250ml (Peg) Premix IV 04/10/25 06:59 125 mls/hr ONCE ONE Administration Miscellaneous 1 each 04/10/25 05:00 04/10/25 05:32 Vancomycin Consult Request NOTAPPLIC 05/10/25 04:59 1 each CONSULT PHARMACY THELMA Administration Discontinued Medications Generic Name Dose Route Start Last Admin Trade Name Freq PRN Reason Stop Dose Admin Albuterol/Ipratropium 9 ml 04/10/25 04:45 04/10/25 05:25 Ipratropium/Albuterol 3 Ml Neb IH 04/10/25 04:46 9 ml ONCE ONE Administration Aspirin 324 mg 04/10/25 04:46 04/10/25 04:54 Aspirin 81mg Chewable Tablet PO 04/10/25 04:47 324 mg ONCE ONE Administration Lactated Ringer's 1,000 mls @ 999 mls/hr 04/10/25 04:45 04/10/25 05:08 Lactated Ringer's 1000 Ml Bag IV 04/10/25 05:45 Not Given .Q1H1M ONE Iopamidol 70 ml 04/10/25 05:18 04/10/25 05:19 Iopamidol-370 (76%);100ml Bottle IV 04/10/25 05:19 70 ml ONCE ONE Administration Nitroglycerin 0.4 mg 04/10/25 04:46 04/10/25 04:54 Nitroglycerin 0.4mg Sl Tablet SL 04/10/25 04:47 0.4 mg ONCE ONE Administration Sodium Chloride 50 ml 04/10/25 05:18 04/10/25 05:19 0.9 % Sodium Chloride 50 Ml Vial IV 04/10/25 05:19 50 ml ONCE ONE Administration Sodium Chloride 10 ml 04/10/25 05:18 04/10/25 05:19 Sodium Chloride 0.9% 10ml Syr (Rad Only) IV 04/10/25 05:19 10 ml ONCE ONE Administration ORDERS Category Date Time Status CT angio chest PE protocol Stat Cat Scan 04/10/25 04:44 Taken CXR --portable [XR chest portable] Stat Exams 04/10/25 04:45 Taken CBC w/Auto Diff [Complete Blood Count Auto Diff] Stat Lab 04/10/25 04:38 Completed CMP [Comprehensive Metabolic Panel] Stat Lab 04/10/25 04:38 Completed Full Resp Panel w/COVID ([facility]) Routine Lab 04/10/25 05:16 Received Lactic Acid Stat Lab 04/10/25 05:01 Completed Trop I [Troponin I] Stat Lab 04/10/25 04:38 Completed Troponin I Q3H Lab 04/10/25 07:45 Ordered Troponin I Q3H Lab 04/10/25 10:45 Ordered Urinalysis and Microscopic Stat Lab 04/10/25 05:20 Results Blood Culture Stat Micro 04/10/25 05:05 Received VBG [Venous Blood Gas] Stat RT 04/10/25 04:38 Completed ECG Request Stat Y 04/10/25 04:39 Ordered Tissue Perfus/Sepsis Re-Eval Sepsis Re-Evaluation Performed: Yes Date Performed: 04/10/25 Time Performed: 05:38 (Tachycardia improving, chest pain resolved) MDM Narrative Medical Decision Narrative: In summary, this 44-year-old female with comorbidities described in the HPI which may not be at goal therapy presents to the emergency department today with cough, chest pain, shortness of breath. On initial evaluation patient is tachycardic but otherwise hemodynamically stable, afebrile, patient has borderline episodes of desaturation, during my exam her oxygen dropped to 91% but recovered to 95%, and expiratory wheezing throughout with no other adventitious sounds, no rhonchi or rales, no reproducible chest pain with palpation of the chest wall, remainder of exam reassuring. Differential diagnosis includes but is not limited to ACS, PE, pneumonia, pneumothorax, with patient's tachycardia and reports of sweats and chills I considered the possibility of sepsis, bacteremia, viral syndrome, among others. Based on these concerns, I ordered serum labs, CT imaging, cardiac workup. ECG personally interpreted demonstrates sinus tachycardia, rate 122, normal axis, normal UT and QTc, patient has depressions in the inferior leads but no reciprocal changes, no STEMI. Patient received DuoNebs and IV fluids initially for treatment. Labs resulted and were personally reviewed by me demonstrating significant leukocytosis WBC 20.4. This in the setting of tachycardia, reported chills and sweats, shortness of breath and cough, and a suspected source of the lungs indicates the patient has sepsis. 30 mL/kg fluid bolus has been ordered. Broad-spectrum antibiotics have also been added. VBG with normal pH at 7.39, pCO2 43.1, VBG lactic normal at 1.3. Blood cultures, urine studies have been added to workup. CMP nonactionable. Chest x-ray personally interpreted demonstrates no lobar infiltrate, see radiology read for final interpretation CTA PE personally interpreted demonstrates small left upper lobe pulmonary nodule, no large PE, no lobar infiltrate, see radiology read for final interpretation which is pending at this time. After returning from CT, patient was hypoxic with minimal ambulation so she was placed on nasal cannula. She states her chest pain is resolving with the breathing treatments. I explained her lab and imaging findings to her. I recommended admission to the hospital for continued treatment of sepsis, new oxygen requirement. Patient is agreeable with this plan. I discussed this case with the hospitalist who graciously accepted the patient. Patient admitted in stable condition.
[2025-04-10] MEDS: LACTATED RINGERS 1000ML 1,710 ML 999 ML IV (05:05)
[2025-04-10 05:07] LABS: Troponin I < 0.01 ng/ml (0.00-0.034)
--- NOTE | 2025-04-10 05:07 | PC.NURSE ---
pt taken to ct scan at this time. respiratory contacted and made aware of order for breathing treatments.
[2025-04-10] MEDS: SODIUM CHLORIDE 0.9% 10ML SYR (RAD ONLY) 10 ML IV (05:19)
[2025-04-10] MEDS: 0.9 % SODIUM CHLORIDE 50 ML VIAL IV (05:19)
[2025-04-10] MEDS: IOPAMIDOL-370 (76%);100ML BOTTLE 70 ML IV (05:19)
--- NOTE | 2025-04-10 05:19 | PC.NURSE ---
pt ambulatory around the department with portable O2 sensor to see if O2 sats drop. Walks with slow steady gait.
--- OUTSIDE RECORDS SUMMARY | 2025-04-10 05:23 | XMS_ITS | Clinical Summary ---
Author Organization Healthcare Address [address] [place] [address] Care Team Providers Care Motor Overhauler Name Role Phone Nasir Mensah MD Primary Care Provider + [phone] Social History Tobacco Use Types Packs/Day Years Used Date Smoking Tobacco: Every Day Alcohol Use Standard Drinks/Week Comments No 0 (1 standard drink = 0.6 oz pur e alcohol) Comments Unknown Sex and Gender Information Value Date Recorded Sex Assigned at Not on file Legal Sex Female 7:48 PM EDT Gender Identity Not on file Sexual Orientation Not on file Last Filed Vital Signs Vital Sign Reading Time Taken Comments Blood Pressure - - Pulse - - Temperature - - Respiratory Rate - - Oxygen Saturation - - Inhaled Oxygen Concentration - - Weight 62.1 kg (136 lb 15.9 oz) 02/05/2016 9:46 AM EDT Height 160 cm (5' 3 ) 02/05/2016 9:46 AM EDT Body Mass Index 24.27 02/05/2016 9:46 AM EDT Plan of Treatment Not on file Care Teams Motor Overhauler Relationship Specialty Start Date End Date Nasir Mensah MD [address] [place] [address] PCP - General 02/21/21
[2025-04-10] MEDS: IPRATROPIUM/ALBUTEROL 3 ML NEB 9 ML IH (05:25)
--- NOTE | 2025-04-10 05:27 | PC.NURSE ---
Walking O2 sat was 88 walking to the bathroom on the wrap around the ER pt desated to 84%
[2025-04-10 05:28] LABS: Adenovirus,PCR Not Detected (NotDetected); Chlamydophila Pneumoniae, PCR Not Detected (NotDetected); Coronavirus 19, PCR Not Detected (NotDetected); Coronovirus HKU1,PCR Not Detected (NotDetected); Influenza A, PCR Not Detected (NotDetected); Influenza AH1, 2009 Not Detected (NotDetected); Influenza AH1, PCR Not Detected (NotDetected); Influenza AH3,PCR Not Detected (NotDetected); Influenza B, PCR Not Detected (NotDetected); Mycoplasma Pneumoniae, PCR Not Detected (NotDetected); Parainfluenza 1, PCR Not Detected (NotDetected); Parainfluenza 2, PCR Not Detected (NotDetected); Parainfluenza 3, PCR Not Detected (NotDetected); Parainfluenza 4, PCR Not Detected (NotDetected)
[2025-04-10 05:28] LABS: Microscopic, Urine URINE MICROSCOPIC (MICROSCOPIC)
[2025-04-10] MEDS: VANCOMYCIN/WATER FOR INJ (PEG) 1.25 GM/250 ML PIGGYBACK IV (05:31)
[2025-04-10 05:32] LABS: Bilirubin,Urine Negative (Negative); Color,Urine YELLOW (Yellow); Glucose,Urine (UA) Negative (Negative); Ketones,Urine Negative (Negative); Leukocyte Esterase,Urine Negative (Negative); PH,Urine 6.5 (5.0-8.5); Protein,Urine Negative (Negative); Specific Gravity, Urine <= 1.005 (1.005-1.030); Urobilinogen,Urine 0.2 EU/dl (0.2)
[2025-04-10] MEDS: VANCOMYCIN CONSULT REQUEST 1 EACH NOTAPPLIC (05:32)
[2025-04-10 05:46] LABS: Squamous Epithelial Cell,Urine 20-50 #/hpf (0-5)
--- NOTE | 2025-04-10 05:52 | PC.NURSE ---
Report given to Karla RN on the floor.
--- NOTE | 2025-04-10 06:27 | P.HP_ITS ---
History of Present Illness *Admission Date: 04/10/25 *Reason for visit:: COPD *History of present illness: 44-year-old female with presents to the ER with complaints of left-sided chest pain. Patient reports for the last 4 days she has been having some left-sided chest pain with cough and shortness of breath. Went to urgent care for ear pain few days ago and was told that she was having a lot of wheezing. She was prescribed Ventolin at this time. She has been using that with some mild improvement of her shortness of breath however Reportedly it worsened approximately 1 hour prior to arrival. Patient reports worse pain with deep inspiration and with coughing. She has also been having random chills and sweats. She reports she has never been diagnosed with COPD but does have an inhaler at home that she has taken a few times without relief of symptoms. No vomiting or diarrhea, no new swelling in the feet or legs. No personal cardiac history. She reports the pain in the left chest as sharp and stabbing, nonradiating. Hospitalist contacted for COPD exacerbation admission and oxygen requirement meeting SIRS criteria history independently obtained. Laboratory data reviewed independently obtained. Old records reviewed. Case discussed with ER physician [facility] Disclaimer: The information contained in this section may have been updated after the patient was seen, as this information can be updated by other users. Medical History Cervical cancer screening Herniated disc Degenerative disc disease Colitis Surgical History History of loop electrical excision procedure (LEEP) H/O tubal ligation Status post insertion of spinal cord stimulator Family History Other No significant family history Social History Smoking Status: Current every day smoker tobacco type: cigarettes packs per day: 1 second hand exposure: Yes alcohol intake: never substance use type: marijuana current occupational status: other Travel in the last 8 weeks?: None household members: spouse and children housing: house current occupational exposures/hazards: No caffeine: Yes Other Medical History Have you received the Flu Vaccine for this season: No Have you received the Pneumonia Vaccine: No Review of Systems Review of Systems Review of systems:: pertinent systems reviewed and negative unless documented below Constitutional Constitutional: Reports system reviewed and no additional complaints, except as documented, Reports body ache(s) and Reports chills Eyes Eyes: Reports system reviewed and no additional complaints, except as documented ENT Ears, Nose, Mouth, and Throat: Reports system reviewed and no additional complaints, except as documented and Reports otalgia *Cardiovascular Cardiovascular: Reports system reviewed and no additional complaints, except as documented and Reports dyspnea *Respiratory Respiratory: Reports system reviewed and no additional complaints, except as documented, Reports chest congestion, Reports cough and Reports dyspnea *Gastrointestinal Gastrointestinal: Reports system reviewed and no additional complaints, except as documented *Genitourinary Genitourinary: Reports system reviewed and no additional complaints, except as documented *Musculoskeletal Musculoskeletal: Reports system reviewed and no additional complaints, except as documented *Neurologic Neurologic: Reports system reviewed and no additional complaints, except as documented Meds Home Medications and Allergies Home Medications ?Medication ?Instructions ?Recorded ?Confirmed ?Type albuterol sulfate 90 mcg/actuation 1 inh inhalation QI D PRN shortness 03/19/25 03/19/25 Rx aerosol inhaler (Ventolin HFA) of breath or wheezing # 6.7 grams amoxicillin 875 mg tablet 875 mg PO BID #20 tabs 03/1903/19/25 Rx New Prescriptions to Start Prescriptions: Allergies Allergy/AdvReac Type Severity Reaction Status Date / Time clindamycin AdvReac Nausea Verified 03/19/25 18:59 Exam Data for Last 24 hours Vital signs and Labs for Last 24 Hours: Temp Pulse Resp BP Pulse Ox O2 Del Method O2 Flow Rate 98.6 F 107 H 19 110/78 97 Nasal Cannula 2 04/10/25 04:38 04/10/25 05:30 04/10/25 05:30 04/10/25 05:30 04/10/25 05:30 04/10/25 05:26 04/10/25 05:26 Laboratory Results - last 24 hr 04/10/25 04:38: WBC 20.4 H*, RBC 4.75, Hgb 14.6, Hct 42.5, MCV 89.5, MCH 30.7, MCHC 34.4, RDW 13.7, Plt Count 316, MPV 11.8 H, Neut % (Auto) 70.8, Lymph % (Auto) 20.3, [place] % (Auto) 7.5, Eos % (Auto) 0.5, Baso % (Auto) 0.4, Neut # (Auto) 14.4 H, Lymph # (Auto) 4.1, [place] # (Auto) 1.5 H, Eos # (Auto) 0.1, Baso # (Auto) 0.1, VBG pH 7.39, VBG pCO2 43.1, VBG pO2 43.2 H, VBG HCO3 25.4, VBG Total CO2 26.7, VBG O2 Saturation 80.0 H, VBG Base Excess 0.4, VBG Lactic Acid 1.3, Sodium 140, Potassium 3.5, Chloride 98, Carbon Dioxide 30, Anion Gap 15.5 H, BUN 4 L, Creatinine 0.50 L, Estimated Creat Clear 127, Estimated GFR 133, Est GFR ( Amer) 161, Glucose 120 H, Calcium 10.1, Total Bilirubin 0.6, AST 24, ALT 18, Alkaline Phosphatase 102, Troponin I < 0.01, Total Protein 8.8 H, Albumin 4.6, Globulin 4.2 H, Albumin/Globulin Ratio 1.1 04/10/25 05:01: Lactate 1.0 04/10/25 05:20: Urine Color Yellow, Urine Appearance Clear, Urine pH 6.5, Ur Specific [place] <= 1.005, Urine Protein Negative, Urine Glucose (UA) Negative, Urine Ketones Negative, Urine Blood Negative, Urine Nitrate Negative, Urine Bilirubin Negative, Urine Urobilinogen 0.2, Ur Leukocyte Esterase Negative, Urine RBC None, Urine WBC None, Ur Squamous Epith Cells 20-50, Urine Bacteria None I & O for Last 24 hours: Intake & Output 04/07/25 04/08/25 04/09/25 04/10/25 23:59 23:59 23:59 23:59 Weight 56.699 kg Constitutional Constitutional: no acute distress *Routine HEENT Exam Head: Present normocephalic Eye: Present EOMI and PERRL ENT: Present mucous membranes moist *Routine Neck Exam Neck: Present supple; Absent lymphadenopathy *Routine Respiratory Exam Respiratory: Present CTA bilaterally *Routine Cardiovascular Exam Cardiovascular: Present RRR *Routine Abdominal Exam Abdominal: Present soft and normoactive bowel sounds; Absent tenderness *Routine Rectal Exam Rectal:: deferred *Routine Genitalia Exam Genitalia:: deferred *Routine Extremities Exam Extremities: Absent cyanosis, clubbing or edema *Routine Skin Exam Skin: Present warm; Absent rash *Routine Neurological Exam Neurological: Present alert and oriented X3 Assessment and Plan *Assessment and plan (1) Acute hypoxic respiratory failure: Status: Acute Category: Medical Code(s): J96.01 - Acute respiratory failure with hypoxia (2) SIRS (systemic inflammatory response syndrome): Status: Acute Category: Medical Code(s): R65.10 - Systemic inflammatory response syndrome (SIRS) of non-infectious origin without acute organ dysfunction (3) COPD exacerbation: Status: Acute Category: Medical Code(s): J44.1 - Chronic obstructive pulmonary disease with (acute) exacerbation Plan 44-year-old female admitted with COPD exacerbation new oxygen requirement. Meeting SIRS criteria in the emergency department. She received vancomycin and Rocephin in the emergency department, de-escalate to p.o. Will admit for supportive management. COPD exacerbation Acute hypoxic respiratory failure - Inhalers - De-escalate to p.o. antibiotics - Pulmonary toilet - Discharge on pulmonary regimen Tobacco abuse - Advised and counseled on smoking cessation - Nicotine patch
--- NOTE | 2025-04-10 06:47 | PC.NURSE ---
Patient arrived to floor via wheelchair from ED at 06:46.
[2025-04-10 08:30] LABS: Troponin I < 0.01 ng/ml (0.00-0.034)
[2025-04-10] MEDS: IPRATROPIUM/ALBUTEROL 3 ML NEB IH (11:12)
[2025-04-10] MEDS: FLUTICASONE/UMECLIDIN/VILANTER 100/62.5/25MCG INHALER 1 PUFF IH (11:13)
--- NOTE | 2025-04-10 11:37 | P.DS_ITS ---
<Statement entered by Damion Pemberton MD - 04/10/25 18:46> Rounded on patient after nurse practitioner. Personally examined and interviewed patient. Agree with exam findings and care plan as documented. General Admission date:: 04/10/25 Discharge date: 04/10/25 HPI HPI HPI: 44-year-old female with presents to the ER with complaints of left-sided chest pain. Patient reports for the last 4 days she has been having some left-sided chest pain with cough and shortness of breath. Went to urgent care for ear pain few days ago and was told that she was having a lot of wheezing. She was prescribed Ventolin at this time. She has been using that with some mild improvement of her shortness of breath however Reportedly it worsened approximately 1 hour prior to arrival. Patient reports worse pain with deep inspiration and with coughing. She has also been having random chills and sweats. She reports she has never been diagnosed with COPD but does have an inhaler at home that she has taken a few times without relief of symptoms. No vomiting or diarrhea, no new swelling in the feet or legs. No personal cardiac history. She reports the pain in the left chest as sharp and stabbing, nonradiating. Hospitalist contacted for COPD exacerbation admission and oxygen requirement meeting SIRS criteria history independently obtained. Laboratory data reviewed independently vicky eldridge. Old records reviewed. Case discussed with ER physician Hospital Course Hospital Course Hospital Course: Ms. Washington is a 44-year-old female who presented to the emergency department this morning for increased shortness of breath, cough, chest tightness for the last few days. She was seen at the urgent treatment care center for ear pain and was having increased wheezes. They did give her an albuterol inhaler which she states she has been using more frequently. Patient was found to have leukocytosis with a white count of 20 and a new oxygen requirement of 2 L. She was admitted to the hospital for further management of her COPD exacerbation. #COPD exacerbation #SIRS #Acute hypoxic respiratory failure ?Patient doing very well this morning, states she has no shortness of breath. She is on room air O2 saturation 94%. She did receive vancomycin and Rocephin in the emergency room. Repeat CBC shows decrease in white count to 19. Plan to discharge home with cefdinir 300 twice daily x 5 days and oral prednisone 40 mg daily x 5 days. ?Patient currently does not use an inhaler on a regular basis. She has been using an albuterol inhaler as needed that was given to her at the [facility] recently. Will start patient on Trelegy inhaler daily. Discussed seeing pulmonology, patient would like to just follow-up with PCP at this time. ?Patient does not currently have PCP. She is agreeable to see Dr. Hayes in [place]. Appointment made to follow-up. #Seasonal allergies ?Patient states she feels that this exacerbation was was brought on by seasonal allergies. Discussed starting Flonase nasal spray daily and Claritin daily. #Abnormal CT finding ? Patient had chest CTA, shows numerous nodule appearing opacities in the lung styles bilaterally. Recommend CT follow-up in 4 to 6 weeks. This should be coordinated by her PCP. ?Additionally, there seems to be densities seen in the right breast on CT. Discussed findings with patient, she states she does get yearly mammograms. Last mammogram noted 10/2023. Discussed with patient the need for follow-up mammogram. Total time spent on discharge 32 minutes in counseling, documentation, chart review, and direct care with patient. Exam Data for Last 24 hours Vital signs and Labs for Last 24 Hours: Temp Pulse Resp BP Pulse Ox O2 Del Method O2 Flow Rate 97.9 F 80 18 115/82 94 L Room Air 2 04/10/25 08:00 04/10/25 11:14 04/10/25 08:00 04/10/25 08:00 04/10/25 10:30 04/10/25 11:00 04/10/25 09:00 Laboratory Results - last 24 hr 04/10/25 04:38: WBC 20.4 H*, RBC 4.75, Hgb 14.6, Hct 42.5, MCV 89.5, MCH 30.7, MCHC 34.4, RDW 13.7, Plt Count 316, MPV 11.8 H, Neut % (Auto) 70.8, Lymph % (Auto) 20.3, [place] % (Auto) 7.5, Eos % (Auto) 0.5, Baso % (Auto) 0.4, Neut # (Auto) 14.4 H, Lymph # (Auto) 4.1, [place] # (Auto) 1.5 H, Eos # (Auto) 0.1, Baso # (Auto) 0.1, VBG pH 7.39, VBG pCO2 43.1, VBG pO2 43.2 H, VBG HCO3 25.4, VBG Total CO2 26.7, VBG O2 Saturation 80.0 H, VBG Base Excess 0.4, VBG Lactic Acid 1.3, Sodium 140, Potassium 3.5, Chloride 98, Carbon Dioxide 30, Anion Gap 15.5 H, BUN 4 L, Creatinine 0.50 L, Estimated Creat Clear 127, Estimated GFR 133, Est GFR ( Amer) 161, Glucose 120 H, Calcium 10.1, Total Bilirubin 0.6, AST 24, ALT 18, Alkaline Phosphatase 102, Troponin I < 0.01, Total Protein 8.8 H, Albumin 4.6, Globulin 4.2 H, Albumin/Globulin Ratio 1.1 04/10/25 05:01: Lactate 1.0 04/10/25 05:16: Chlamy pneumoniae PCR Not detected, Adenovirus (PCR) Not detected, B. pertussis DNA (PCR) Not detected, Coronavirus OC43 (PCR) Not detected, Coronavirus HKU1 (PCR) Not detected, Coronavirus 229E (PCR) Not detected, SARS-CoV-2 (PCR) Not detected, Coronavirus NL63 (PCR) Not detected, Human Metapneumovir PCR Not detected, Influenza A (H1) PCR Not detected, Influ A (H1N1/09) PCR Not detected, Influenza A (H3) PCR Not detected, Influenza Type A (PCR) Not detected, Influenza Type B (PCR) Not detected, M. pneumoniae (PCR) Not detected, Parainfluenza 1 (PCR) Not detected, Parainfluenza 2 (PCR) Not detected, Parainfluenza 3 (PCR) Not detected, Parainfluenza 4 (PCR) Not detected, RSV (PCR) Not detected, Entero/Rhino (PCR) Not detected 04/10/25 05:20: Urine Color Yellow, Urine Appearance Clear, Urine pH 6.5, Ur Specific [place] <= 1.005, Urine Protein Negative, Urine Glucose (UA) Negative, Urine Ketones Negative, Urine Blood Negative, Urine Nitrate Negative, Urine Bilirubin Negative, Urine Urobilinogen 0.2, Ur Leukocyte Esterase Negative, Urine RBC None, Urine WBC None, Ur Squamous Epith Cells 20-50, Urine Bacteria None 04/10/25 07:58: Troponin I < 0.01 I & O for Last 24 hours: Intake & Output 04/07/25 04/08/25 04/09/25 04/10/25 23:59 23:59 23:59 23:59 Intake Total 350 / 350 Output Total 700 / 700 Balance -350 / -350 Weight 58.423 kg Constitutional Constitutional: no acute distress and thin *Routine HEENT Exam Head: Present normocephalic Eye: Present EOMI and PERRL ENT: Present mucous membranes moist *Routine Neck Exam Neck: Present supple and full ROM; Absent JVD *Routine Respiratory Exam Respiratory: Present CTA bilaterally, normal respiratory effort, able to speak in complete sentences and symmetric chest movement *Routine Cardiovascular Exam Cardiovascular: Present RRR *Routine Abdominal Exam Abdominal: Present soft and normoactive bowel sounds; Absent tenderness *Routine Extremities Exam Extremities: Present normal capillary refill; Absent edema *Routine Skin Exam Skin: Present intact and dry *Routine Neurological Exam Neurological: Present alert and oriented X3 Results Data Completed and Pending Labs on day of discharge: Labs from last 24 hours 04/10/25 04/10/25 04/10/25 07:58 05:20 05:16 WBC RBC Hgb Hct MCV MCH MCHC RDW Plt Count MPV Neut % (Auto) Lymph % (Auto) [place] % (Auto) Eos % (Auto) Baso % (Auto) Neut # (Auto) Lymph # (Auto) [place] # (Auto) Eos # (Auto) Baso # (Auto) VBG pH VBG pCO2 VBG pO2 VBG HCO3 VBG Total CO2 VBG O2 Saturation VBG Base Excess VBG Lactic Acid Sodium Potassium Chloride Carbon Dioxide Anion Gap BUN Creatinine Estimated Creat Clear Estimated GFR Est GFR ( Amer) Glucose Lactate Calcium Total Bilirubin AST ALT Alkaline Phosphatase Troponin I < 0.01 Total Protein Albumin Globulin Albumin/Globulin Ratio Urine Color Yellow Urine Appearance Clear Urine pH 6.5 Ur Specific [place] <= 1.005 Urine Protein Negative Urine Glucose (UA) Negative Urine Ketones Negative Urine Blood Negative Urine Nitrate Negative Urine Bilirubin Negative Urine Urobilinogen 0.2 Ur Leukocyte Esterase Negative Urine RBC None Urine WBC None Ur Squamous Epith Cells 20-50 Urine Bacteria None Chlamy pneumoniae PCR Not detected Adenovirus (PCR) Not detected B. pertussis DNA (PCR) Not detected Coronavirus OC43 (PCR) Not detected Coronavirus HKU1 (PCR) Not detected Coronavirus 229E (PCR) Not detected SARS-CoV-2 (PCR) Not detected Coronavirus NL63 (PCR) Not detected Human Metapneumovir PCR Not detected Influenza A (H1) PCR Not detected Influ A (H1N1/09) PCR Not detected Influenza A (H3) PCR Not detected Influenza Type A (PCR) Not detected Influenza Type B (PCR) Not detected M. pneumoniae (PCR) Not detected Parainfluenza 1 (PCR) Not detected Parainfluenza 2 (PCR) Not detected Parainfluenza 3 (PCR) Not detected Parainfluenza 4 (PCR) Not detected RSV (PCR) Not detected Entero/Rhino (PCR) Not detected 04/10/25 04/10/25 05:01 04:38 WBC 20.4 H* RBC 4.75 Hgb 14.6 Hct 42.5 MCV 89.5 MCH 30.7 MCHC 34.4 RDW 13.7 Plt Count 316 MPV 11.8 H Neut % (Auto) 70.8 Lymph % (Auto) 20.3 [place] % (Auto) 7.5 Eos % (Auto) 0.5 Baso % (Auto) 0.4 Neut # (Auto) 14.4 H Lymph # (Auto) 4.1 [place] # (Auto) 1.5 H Eos # (Auto) 0.1 Baso # (Auto) 0.1 VBG pH 7.39 VBG pCO2 43.1 VBG pO2 43.2 H VBG HCO3 25.4 VBG Total CO2 26.7 VBG O2 Saturation 80.0 H VBG Base Excess 0.4 VBG Lactic Acid 1.3 Sodium 140 Potassium 3.5 Chloride 98 Carbon Dioxide 30 Anion Gap 15.5 H BUN 4 L Creatinine 0.50 L Estimated Creat Clear 127 Estimated GFR 133 Est GFR ( Amer) 161 Glucose 120 H Lactate 1.0 Calcium 10.1 Total Bilirubin 0.6 AST 24 ALT 18 Alkaline Phosphatase 102 Troponin I < 0.01 Total Protein 8.8 H Albumin 4.6 Globulin 4.2 H Albumin/Globulin Ratio 1.1 Urine Color Urine Appearance Urine pH Ur Specific [place] Urine Protein Urine Glucose (UA) Urine Ketones Urine Blood Urine Nitrate Urine Bilirubin Urine Urobilinogen Ur Leukocyte Esterase Urine RBC Urine WBC Ur Squamous Epith Cells Urine Bacteria Chlamy pneumoniae PCR Adenovirus (PCR) B. pertussis DNA (PCR) Coronavirus OC43 (PCR) Coronavirus HKU1 (PCR) Coronavirus 229E (PCR) SARS-CoV-2 (PCR) Coronavirus NL63 (PCR) Human Metapneumovir PCR Influenza A (H1) PCR Influ A (H1N1/09) PCR Influenza A (H3) PCR Influenza Type A (PCR) Influenza Type B (PCR) M. pneumoniae (PCR) Parainfluenza 1 (PCR) Parainfluenza 2 (PCR) Parainfluenza 3 (PCR) Parainfluenza 4 (PCR) RSV (PCR) Entero/Rhino (PCR) DS: Diagnosis Discharge Diagnosis (1) Acute hypoxic respiratory failure: Status: Acute Code(s): J96.01 - Acute respiratory failure with hypoxia (2) SIRS (systemic inflammatory response syndrome): Status: Acute Code(s): R65.10 - Systemic inflammatory response syndrome (SIRS) of non-infectious origin without acute organ dysfunction (3) COPD exacerbation: Status: Acute Code(s): J44.1 - Chronic obstructive pulmonary disease with (acute) exacerbation (4) Seasonal allergies: Status: Acute Code(s): J30.2 - Other seasonal allergic rhinitis (5) Tobacco use disorder: Status: Acute Code(s): F17.200 - Nicotine dependence, unspecified, uncomplicated Meds Home Medications and Allergies Home Medications ?Medication ?Instructions ?Recorded ?Confirmed ?Type albuterol sulfate 90 mcg/actuation 1 inh inhalation QI D PRN shortness 03/19/25 04/10/25 Rx aerosol inhaler (Ventolin HFA) of breath or wheezing # 6.7 grams cefdinir 300 mg capsule 300 mg PO BID #10 caps 04/10 Rx fluticasone propionate 50 1 spray intranasal DAILY #16 grams 04/10/25 Rx mcg/actuation nasal spray,suspension (Flonase Allergy Relief) loratadine 10 mg tablet (Claritin) 10 mg PO DAILY #30 tabs 04/10/25 Rx prednisone 20 mg tablet 40 mg (2 x 20 mg) PO DAILY # 4 tabs 04/10/25 Rx New Prescriptions to Start Prescriptions: cefdinir Julianne Zepeda fluticasone propionate [Flonase Allergy Relief] Julianne Zepeda loratadine [Claritin] Julianne Zepeda prednisone Julianne Zepeda Allergies Allergy/AdvReac Type Severity Reaction Status Date / Time clindamycin AdvReac Nausea Verified 03/19/25 18:59 Discharge Plan Disposition Patient Disposition: Home, Self-Care Condition: Fair Follow up Plan Follow up with: Derrick Hayes MD [Staff Physician, Internal Medicine] - 04/23/25 11:00 am Prescriptions/Medication Reconciliation: New cefdinir 300 mg capsule 300 mg PO BID Qty: 10 0RF prednisone 20 mg tablet 40 mg PO DAILY Qty: 4 0RF fluticasone propionate [Flonase Allergy Relief] 50 mcg/actuation spray,suspension 1 spray intranasal DAILY Qty: 16 0RF Rx Instructions: administer into each nostril loratadine [Claritin] 10 mg tablet 10 mg PO DAILY Qty: 30 0RF Continued albuterol sulfate [Ventolin HFA] 90 mcg/actuation HFA aerosol inhaler 1 inh inhalation QID PRN (Reason: shortness of breath or wheezing) Qty: 6.7 0RF Problem Reconciliation Problems Reviewed?: Yes Patient Discharge Instructions ACTIVITY: Continue current activity DIET: continue same diet Patient Instructions: DI for Chronic Obstructive Pulmonary Disease, DI for Sepsis -- Adult, DI for Respiratory Failure, Stop Light COPD, Stop Light Heart Failure, Stop Light Infection Print Language: Taiwanese Providers Primary Care Provider: Provider,Referral Admit Provider: Damion Pemberton Attending Provider: Damion Pemberton
[2025-04-10 12:19] LABS: Hematocrit 35.9 % (37.0-47.0); Immature Granulocytes % 0.5 %; Mean Corpuscular HGB Conc 34.3 g/dL (31.8-35.4); Mean Corpuscular Hemoglobin 31.1 pg (27.0-31.2); Mean Corpuscular Volume 90.7 fl (81-99); Nucleated Red Blood Cells % 0 %; Platelet Count 257 K/mm3 (142-424); Red Blood Count 3.96 M/mm3 (4.20-5.40); Red Cell Distribution Width-SD 45.6 fL; White Blood Count 19.4 K/mm3 (4.8-10.8)
[2025-04-10 12:37] LABS: Hemoglobin 12.3 g/dL (12.2-16.2)
[2025-04-10 12:57] LABS: Troponin I < 0.01 ng/ml (0.00-0.034)
--- NOTE | 2025-04-11 10:55 | SW/DCPLANNER ---
Spoke with patient on the phone. Patient stated that she is feeling great today. Patient stated that she is aware of her upcoming appointment. Patient stated that she was able to get her new medicine picked up from [facility]. Patient stated that she was very pleased with the care and stated that it was top of the line. Patient stated that she has no concerns or questions at this time. Fan Bonilla
== END 2025-04-10 16:02 | disposition home or self-care (01) ==
LOC: ER 05:31 → 2ND 05:39
PROVIDERS: Admitting Provider Internal Medicine Adolescent Medicine; Emergency Provider Emergency Medicine; Visit Provider Internal Medicine Adolescent Medicine
DX: J44.1 Chronic obstructive pulmonary disease with (acute) exacerbation (principal); R65.10 Systemic inflammatory response syndrome (SIRS) of non-infectious origin without acute organ dysfunction; J96.01 Acute respiratory failure with hypoxia; J30.2 Other seasonal allergic rhinitis; F17.210 Nicotine dependence, cigarettes, uncomplicated; R91.8 Other nonspecific abnormal finding of lung field; R00.0 Tachycardia, unspecified; Z88.1 Allergy status to other antibiotic agents; Z79.899 Other long term (current) drug therapy
CPT/HCPCS: 96361; 96365; 96367; 0223U; 36415; 71045; 71275; 80053; 81001; 82803; 83605; 84484; 85025; 87040; 87633; 93005; 94640; 94760; G0378; J0696; J3372; J7120; Q9967

== ENCOUNTER 2025-04-25 11:25 | Outpatient (POV) | payer MEDICAID, SELFPAY ==
--- OUTSIDE RECORDS SUMMARY | 2025-04-25 11:31 | XMS_ITS | Clinical Summary ---
Author Organization Healthcare Address [address] [place] [address] Care Team Providers Care Primary Products Inspectors Name Role Phone Nasir Mensah MD Primary Care Provider + [phone] Social History Tobacco Use Types Packs/Day Years [...] of Treatment Not on file Care Teams Primary Products Inspectors Relationship Specialty Start Date End Date Nasir Mensah MD [address] [place] [address] PCP - General 02/21/21
[2025-04-25 11:39] VITALS: BP 116/77; PULSE 97; RESP 14; O2SAT 100; BMI 22.8
--- NOTE | 2025-04-25 11:57 | EXP.PAIN.SOA ---
[facility] Disclaimer: The information contained in this section may have been updated after the patient was seen, as this information can be updated by other users. Medical History Acute hypoxic respiratory failure Sepsis Healthcare maintenance Vomiting Post-dural puncture headache Please see above. Headache Headache secondary to potential postdural puncture. Dr. Vidal following. Nausea & vomiting Pain around toenail, right foot Foot pain, right Onychogryphosis E. coli UTI (urinary tract infection) SIRS (systemic inflammatory response syndrome) Gastroenteritis Pelvic congestion syndrome Abdominal pain Abscess Cervical cancer screening Herniated disc Degenerative disc disease Colitis Surgical History History of loop electrical excision procedure (LEEP) H/O tubal ligation Status post insertion of spinal cord stimulator Family History Other No significant family history Social History Smoking Status: Current every day smoker tobacco type: cigarettes packs per day: 1 second hand exposure: Yes alcohol intake: never substance use type: marijuana current occupational status: other Travel in the last 8 weeks?: None household members: spouse and children housing: house current occupational exposures/hazards: No caffeine: Yes Have you lived/traveled outside US in past 30 days?: No Contact w/someone who lives/traveled outside US past 30 days?: No Exposure to someone with infectious disease in past 14 days?: No Do you have a fever (greater than 100.4 F or 38 C)?: No Have you tested positive for COVID-19?: No Exposed to someone with COVID-19 in past 14 days?: No Do you have a sore throat?: No Do you have a cough?: No Do you have any weakness?: No Do you have any diarrhea?: No Are you experiencing any unusual bleeding?: No Do you have any muscle aches/pain?: No Do you have any abdominal pain?: No Are you experiencing loss of taste or smell?: No PM Subjective & Objective Subjective Subjective:: Patient is a pleasant 44-year-old female who presents today for follow-up. She rates her pain today a 7 out of 10. She denies any new trauma or injury. Patient is still having the same pain that she has previously had there in her low back and hips. Patient states that she has not heard any updates on getting her spinal cord stimulator generator replacement. Patient is asking if we have any word. Her Nikolai has been reviewed and is appropriate Review of Systems: General: No recent weight changes, no fever, no sleep disturbances Respiratory: No cough, no shortness of air, no recurring pulmonary infections Cardiovascular/peripheral vascular: No chest pain, no palpitations, no edema, no shortness of breath Gastrointestinal: No new onset incontinence, normal bowel movements reported Genitourinary: No new onset incontinence Musculoskeletal: Chronic low back pain, hip pain Psychiatric: [Normal mood/affect] Neurological: [Denies weakness in extremities], [denies balance issues] Pain at rest (0-10 scale): 7 Objective Objective:: Physical Exam: General: Alert and oriented x3, no acute distress, pleasant and cooperative Lungs: Respirations even and unlabored, symmetrical chest expansion Eyes: PERRL Musculoskeletal: Flexion and extension of lumbar [spine] somewhat guarded secondary to pain, [antalgic gait noted] Neurological: Speech clear, no gross sensory deficit Has patient had previous pain injection?: No Conservative treatment options previously tried: Home exercise plan Length of treatment: Longer than 12 weeks Meds Home Medications and Allergies Home Medications ?Medication ?Instructions ?Recorded ?Confirmed ?Type albuterol sulfate 90 mcg/actuation 1 inh inhalation QID PRN shortness 03/19/25 04/25/25 Rx aerosol inhaler (Ventolin HFA) of breath or wheezing #6.7 grams fluticasone propionate 50 1 spray intranasal DAILY #16 grams 04/10/25 04/25/25 Rx mcg/actuation nasal spray,suspension (Flonase Allergy Relief) loratadine 10 mg tablet (Claritin) 10 mg PO DAILY #30 tabs 04/10/25 04/25/25 Rx fluticasone fur. 100 mcg-umeclid 1 inh inhalation Q24H #60 ea 04/23/25 04/25/25 Rx 62.5 mcg-vilant 25 mcg inhalat.powder (Trelegy Ellipta) New Prescriptions to Start Prescriptions: Allergies Allergy/AdvReac Type Severity Reaction Status Date / Time clindamycin AdvReac Nausea Verified 04/23/25 10:54 Assessment and Plan *Assessment and plan (1) Chronic back pain: Status: Acute Qualifiers: Back pain laterality: bilateral Back pain location: low back pain Sciatica laterality: sciatica of right side Sciatica presence: with sciatica Qualified Code(s): M54.41 - Lumbago with sciatica, right side; G89.29 - Other chronic pain Category: Medical Code(s): M54.9 - Dorsalgia, unspecified; G89.29 - Other chronic pain (2) Bilateral sacroiliitis: Status: Acute Category: Medical Code(s): M46.1 - Sacroiliitis, not elsewhere classified Plan I did discuss with the patient that I will have our manager ems follow-up on the spinal cord stimulator generator replacement and contact her with an update. We will plan on following back up with her following this surgery at her 1 week postop appointment. Patient agrees with this plan of care. Patient's stimulator is at end-of-life with only showing 17% still functioning. Patient has been instructed to contact the clinic with any concerns before the next appointment. Dr. Vidal has reviewed this note and agrees with this plan of care. This note was dictated using voice recognition software and make contain errors or omissions. All injections are used with Lidocaine, Bupivacaine and dexamethasone. Occasionally urine drug screen is needed to verify patient's compliance with our office pain contract. This is ordered based off specific treatments related to chronic pain with the potential to abuse certain medications.
== END 2025-04-25 23:59 | disposition home or self-care (01) ==
LOC: SC.PAIN 11:26
PROVIDERS: PCP Family Medicine; Visit Provider Nurse Practitioner Family
DX: M54.41 Lumbago with sciatica, right side (principal); M54.42 Lumbago with sciatica, left side; M46.1 Sacroiliitis, not elsewhere classified; G89.29 Other chronic pain
CPT/HCPCS: 99212; G0463

== ENCOUNTER 2025-05-17 15:49 | Outpatient (CLI) | payer MEDICAID, SELFPAY ==
--- OUTSIDE RECORDS SUMMARY | 2025-05-17 15:51 | XMS_ITS | Clinical Summary ---
Author Organization Healthcare Address [address] [place] [address] Care Team Providers Care Finish Mender Name Role Phone Nasir Mensah MD Primary Care Provider + [phone] Social History Tobacco Use Types Packs/Day Years [...] of Treatment Not on file Care Teams Finish Mender Relationship Specialty Start Date End Date Nasir Mensah MD [address] [place] [address] PCP - General 02/21/21
--- OUTSIDE RECORDS SUMMARY | 2025-05-17 15:51 | XMS_ITS | Clinical Summary ---
Author Organization [facility] yste Address [address] [place] [address] Care Team Providers Care Watch Crystal Molder Name Role Phone Nasir Mensah MD Primary Care Provider [phone] Allergies No known active allergies Medications Acetaminophen-C aff-Pyrilamine (MIDOL COMPLETE PO) Take 2 tablets by mouth Every 8 (Eight) Hours As Needed. Active Active Problems Problem Noted Date Diagnosed Date Chronic bilateral low back pain with bilateral s ciatica 04/28/2021 Overview (04/28/2021): Added automatically from request for surgery [id number] Spina bifida occulta 04/25/2021 Social History Tobacco Use Types Packs/Day Years Used Date Smoking Tobacco: Every Day Cigarettes 1.5 25 Smokeless Tobacco: Never Alcohol Use Standard Drinks/Week Comments Never 0 (1 standard drink = 0.6 oz pur e alcohol) Abuse Screen Answer Date Recorded Unsafe at Home or Work/School Not on file Feels Threatened by Someone? Not on file Does Anyone Keep You from Co ntacting Others or Doint Things Outside the Home? Not on file 07/23/2023 Physical Sign of Abuse Present Not on file 1 Housing Stability Answer Date Recorded Current Living Arrangements Not on file 07/11 Potentially Unsafe Housing Conditions Not on ozzie e 07/23/2023 Family and Community Support Answer Memo e Recorded Help with Day-to-Day Activities Not on file 07/23/2023 Lonely or Isolated Not on file 07/23/2023 Employment Answer Date Recorded Do you want help finding or keeping work or a dima b? Not on file 07/23/2023 Disabilities Answer Date Recorded Concentrating, Remembering, or Making Decisions Difficulty Not on file 07/23/2023 Doing Errands Independently Difficulty Not on fi le 07/23/2023 Education Answer Date Recorded Help with school or training? Not on file Preferred Language Not on file 07/23/2023 Comments Unknown Sex and Gender Information Value Date Recorded Sex Assigned at Not on file Legal Sex Female 1:46 PM EDT Gender Identity Not on file Sexual Orientation Not on file Last Filed Vital Signs Vital Sign Reading Time Taken Comments Blood Pressure 128/86 05/26/2021 3:48 PM EDT Pulse 96 05/26/2021 3:48 PM EDT Temperature 36.2 C (97.1 F) 05/26/2021 3:48 PM EDT Respiratory Rate 20 05/26/2021 3:48 PM EDT Oxygen Saturation 96% 05/12/2021 9:06 AM EDT Inhaled Oxygen Concentration - - Weight 67.2 kg (148 lb 3.2 oz) 05/26/2021 3:48 P M EDT Height 157.5 cm (5' 2 ) 05/26/2021 3:48 PM EDT Body Mass Index 27.11 05/26/2021 3:48 PM EDT Plan of Treatment Health Maintenance Due Date Last Done Comments Annual Gynecologic Pelvic an d Breast Exam 1979 TDAP/TD VACCINES (1 - Tdap) 1998 MAMMOGRAM 2019 ANNUAL PHYSICAL 04/25/2021 HEPATITIS C SCREENING 04/25/2021 COVID-19 Vaccine ( - 2023-2 5 season) 2024 COLOGUARD 2024 COLON CANCER SCREENING 5 YEA R SIGMOIDOSCOPY 2024 COLONOSCOPY 2024 [address]AL CANCER SCREENING [address]24 CT COLONOGRAPHY 2024 FECAL OCCULT BLOOD TEST 2024 FIT Testing (1 year) 2024 INFLUENZA VACCINE 07/11/2025 Pneumococcal Vaccine 0-49 Aged Out No longer eligible based on patient's age to complete this topic Insurance Care Teams Watch Crystal Molder Relationship Specialty Start Date End Date Nasir Mensah MD [address] [facility] [address] ATTN: [place] [address] PCP - General Emergency Medicine 04/04/21
--- NOTE | 2025-05-17 16:15 | MM_ITS ---
PROCEDURE INFORMATION: Exam: MG Bilateral Screening 3D Mammography Exam date and time: 05/17/2025 3:59 PM Age: 44 years old Clinical indication: Screening mammogram TECHNIQUE: Imaging protocol: Bilateral Screening tomosynthesis and 2D mammography including computer-aided detection (CAD) when performed. COMPARISON: 1. MG MM DIG SCREENING MAMM BI W/CAD 10/19/2023 12:49 PM 2. MG MM DIG SCREENING MAMM BI W/CAD 09/24/2021 4:05 PM FINDINGS: MAMMOGRAPHY: Breast composition: The breast is heterogeneously dense, which may obscure small masses. Mass: None. Architectural distortion: No new or suspicious architectural distortion. Calcifications: No new or suspicious calcifications are present Asymmetric density: No new or suspicious asymmetric density is present Skin thickening: None. Axillary adenopathy: None. IMPRESSION: No mammographic evidence of malignancy. Recommend annual screening mammography unless otherwise clinically indicated. ASSESSMENT: BI-RADS category 1: Negative.
== END 2025-05-17 23:59 | disposition home or self-care (01) ==
LOC: RAD 15:49
PROVIDERS: PCP Family Medicine; Visit Provider Family Medicine
DX: Z12.31 Encounter for screening mammogram for malignant neoplasm of breast (principal); R92.333 Mammographic heterogeneous density, bilateral breasts
CPT/HCPCS: 77063; 77067

== ENCOUNTER 2025-06-13 12:00 | Outpatient (CLI) | payer MEDICAID, SELFPAY ==
[2025-06-13 08:15] VITALS: BMI 24.3
--- OUTSIDE RECORDS SUMMARY | 2025-06-13 12:09 | XMS_ITS | Clinical Summary ---
Author Organization [facility] yste Address [address] [place] [address] Care Team Providers Care Labor Economist Name Role Phone Nasir Mensah MD Primary Care Provider [phone] Allergies No known active allergies Medications Acetaminophen-C aff-Pyrilamine (MIDOL COMPLETE PO) Take 2 tablets by mouth Every 8 (Eight) Hours As Needed. Active Active Problems Problem Noted Date Diagnosed Date Chronic bilateral low back pain with bilateral s ciatica 04/28/2021 Overview (04/28/2021): Added automatically from request for surgery [id number] Spina bifida occulta 04/25/2021 Social History Tobacco [...] to complete this topic Insurance Care Teams Labor Economist Relationship Specialty Start Date End Date Nasir Mensah MD [address] [facility] [address] ATTN: [place] [address] PCP - General Emergency Medicine 04/04/21
--- OUTSIDE RECORDS SUMMARY | 2025-06-13 12:09 | XMS_ITS | Clinical Summary ---
Author Organization Healthcare Address [address] [place] [address] Care Team Providers Care Lawn Sprinkler Servicer Name Role Phone Nasir Mensah MD Primary Care Provider + [phone] Social History Tobacco Use Types Packs/Day Years [...] of Treatment Not on file Care Teams Lawn Sprinkler Servicer Relationship Specialty Start Date End Date Nasir Mensah MD [address] [place] [address] PCP - General 02/21/21
[2025-06-13 12:28] LABS: Hematocrit 43.8 % (37.0-47.0); Hemoglobin 14.6 g/dL (12.2-16.2); Immature Granulocytes % 0.2 %; Mean Corpuscular HGB Conc 33.3 g/dL (31.8-35.4); Mean Corpuscular Hemoglobin 30.8 pg (27.0-31.2); Mean Corpuscular Volume 92.4 fl (81-99); Nucleated Red Blood Cells % 0 %; Platelet Count 224 K/mm3 (142-424); Red Blood Count 4.74 M/mm3 (4.20-5.40); Red Cell Distribution Width-SD 50.8 fL; White Blood Count 8.8 K/mm3 (4.8-10.8)
[2025-06-13 16:30] LABS: Chloride 112 mmol/L (98-107); Sodium 144 mmol/L (136-145)
[2025-06-13 16:31] LABS: Potassium 4.3 mmoL/L (3.5-5.1)
[2025-06-13 16:33] LABS: Blood Urea Nitrogen 10 mg/dl (7-17)
[2025-06-13 16:34] LABS: Anion Gap 11.3 mEq/L (5-15); Calcium 10.1 mg/dl (8.4-10.2); Carbon Dioxide 25 mmol/L (22.0-30.0); Creatinine Clearance Estimated 109 mL/min (50-200); Creatinine,Serum 0.60 mg/dl (0.52-1.04); Estimated Glomerular Filt Rate 108 ml/min (>60); GFR (African American) 131 ML/MIN (>60); Glucose 91 mg/dl (74-100)
== END 2025-06-13 23:59 | disposition home or self-care (01) ==
LOC: PREOP 12:00
PROVIDERS: PCP Family Medicine; Visit Provider Anesthesiology
DX: Z01.812 Encounter for preprocedural laboratory examination (principal)
CPT/HCPCS: 80048; 85025

== ENCOUNTER 2025-06-22 07:31 | Day surgery (SDC) | payer MEDICAID, SELFPAY ==
[2025-06-13 12:45] VITALS: BMI 24.3
[2025-06-22] MEDS: LACTATED RINGERS 1000ML 1,000 ML 25 ML IV (08:01)
[2025-06-22 08:13] VITALS: BP 119/81; PULSE 69; RESP 18; TEMP 36.2; O2SAT 98
[2025-06-22 08:16] LABS: Urine Pregnancy, HCG Qual. Negative (Negative)
--- NOTE | 2025-06-22 08:31 | EXP.ANES.CKL ---
[facility] Disclaimer: The information contained in this section may have been updated after the patient was seen, as this information can be updated by other users. 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 coli UTI (urinary tract infection) SIRS (systemic inflammatory response syndrome) Gastroenteritis Pelvic congestion syndrome Abdominal pain Abscess Cervical cancer screening Herniated disc Degenerative disc disease Colitis Surgical History History of loop electrical excision procedure (LEEP) H/O tubal ligation Status post insertion of spinal cord stimulator Family History Other No significant family history Social History Smoking Status: Current every day smoker tobacco type: cigarettes packs per day: 1 second hand exposure: Yes alcohol intake: never substance use type: marijuana current occupational status: unemployed Travel in the last 8 weeks?: None household members: spouse and children housing: house current occupational exposures/hazards: No caffeine: Yes Have you lived/traveled outside US in past 30 days?: No Contact w/someone who lives/traveled outside US past 30 days?: No Exposure to someone with infectious disease in past 14 days?: No Do you have a fever (greater than 100.4 F or 38 C)?: No Have you tested positive for COVID-19?: No Exposed to someone with COVID-19 in past 14 days?: No Do you have a sore throat?: No Do you have a cough?: No Do you have any weakness?: No Do you have any diarrhea?: No Are you experiencing any unusual bleeding?: No Do you have any muscle aches/pain?: No Do you have any abdominal pain?: No Are you experiencing loss of taste or smell?: No [facility] Anesthesia Checklist Patient Identification Patient Identification: Arm Band and Verbal (Name & ) Structural Data Admitted From: Home Planned Operative Procedure/s: replacement of spinal cord stimulatory battery Consent for Planned Operative Procedure(s) Verified: Yes Verified Documents: Surgical Consent and History and Physical NPO Status Verified Time NPO: 00:00 Additional verifications Anesthesia Reactions: No Hx Blood Transfusions: Yes Blood Transfusion Reaction: No Airway Assessment Mallampati Score:: Class II Dentition: Edentulous Neurological Assessment Level of Consciousness: Awake, Alert and Appropriate Hx Seizures: No Numbness or tingling in extremities: No Anesthesia Plan Anesthesia Risk discussed: Yes Anesthesia Plan: Verified ASA Class: II Anesthesia Type: MAC
[2025-06-22] MEDS: SODIUM CHLORIDE 0.9% 20ML VIAL 40 ML IV (10:14)
[2025-06-22] MEDS: LIDOCAINE 1% W/EPI 1:100,000 20ML VIAL 20 ML (10:14)
[2025-06-22] MEDS: GENTAMICIN 80 MG/2 ML VIAL (10:15)
[2025-06-22 10:29] VITALS: BP 111/69; PULSE 71; RESP 18; TEMP 36.2; O2SAT 94
[2025-06-22 10:39] VITALS: BP 124/86; PULSE 70; RESP 16; TEMP 36.2; O2SAT 93
[2025-06-22 10:49] VITALS: BP 137/91; PULSE 68; RESP 18; TEMP 36.2; O2SAT 96
[2025-06-22 10:59] VITALS: BP 116/78; PULSE 65; RESP 16; TEMP 36.2; O2SAT 96
[2025-06-22] MEDS: ONDANSETRON 4MG ODT 4 MG SL (10:59)
--- NOTE | 2025-06-22 10:59 | P.OP_ITS ---
Date of procedure: 06/22/25 Pre-op Diagnosis:: End-of-life spinal cord stimulator generator Post-op Diagnosis:: Same Procedure performed:: Replacement [employer] spinal cord similar generator Surgeon:: Dino Vidal MD Anesthesia: MAC Estimated blood loss (mL): 5 Clinical Note:: The patient is a pleasant 44-year-old white female who has a end-of-life [employer] spinal cord stimulator generator. She presents for replacement of her generator today. Her leads are in good position and she was getting good relief from the stimulator. Her battery is nearing end-of-life we will replace her battery today. This will be a rechargeable system. Operative findings:: None Operative note:: Informed consent was obtained risk and benefits of the procedure were explained to the patient. The patient was taken the operating room placed prone on the procedure table. She was prepped and draped in sterile fashion. C-arm fluoroscopy was used to view the stimulator leads. The leads were at the T7-T8 and T9 vertebral bodies. They were in good position. The skin and subcutaneous tissues overlying the generator were anesthetized using lidocaine. I made an incision and dissected out the stimulator generator. I disconnected the leads. I reconnected to the new rechargeable spinal cord stimulator generator. Impedances were checked and found to be okay. The generator is placed back in the pocket. The incision was then closed with 2-0 Vicryl followed by 4-0 nylon and andrés. Patient tolerated the procedure well with no complications. Patient was programmed by the [employer] customer operations representative with good stimulation in all areas pain. Patient was then discharged home neurologic intact with good relief of pain symptoms. Plan and disposition: Will follow-up with this patient in 1 week for wound check and reprogramming. Will follow-up in 2 to 3 weeks for suture and staple removal. Condition: stable Disposition: PACU Complications:: None
--- NOTE | 2025-06-22 11:02 | EXP.HP ---
History of Present Illness *Admission Date: 06/22/25 *Reason for visit:: Replacement of spinal cord stimulator generator *History of present illness: This patient is a pleasant 44-year-old white female who presents for replacement of her spinal cord stimulator generator today. [facility] Disclaimer: The information contained in this section may have been updated after the patient was seen, as this information can be updated by other users. 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 coli UTI (urinary tract infection) SIRS (systemic inflammatory response syndrome) Gastroenteritis Pelvic congestion syndrome Abdominal pain Abscess Cervical cancer screening Herniated disc Degenerative disc disease Colitis Surgical History History of loop electrical excision procedure (LEEP) H/O tubal ligation Status post insertion of spinal cord stimulator Family History Other No significant family history Social History Smoking Status: Current every day smoker tobacco type: cigarettes packs per day: 1 second hand exposure: Yes alcohol intake: never substance use type: marijuana current occupational status: unemployed Travel in the last 8 weeks?: None household members: spouse and children housing: house current occupational exposures/hazards: No caffeine: Yes Have you lived/traveled outside US in past 30 days?: No Contact w/someone who lives/traveled outside US past 30 days?: No Exposure to someone with infectious disease in past 14 days?: No Do you have a fever (greater than 100.4 F or 38 C)?: No Have you tested positive for COVID-19?: No Exposed to someone with COVID-19 in past 14 days?: No Do you have a sore throat?: No Do you have a cough?: No Do you have any weakness?: No Do you have any diarrhea?: No Are you experiencing any unusual bleeding?: No Do you have any muscle aches/pain?: No Do you have any abdominal pain?: No Are you experiencing loss of taste or smell?: No Other Medical History Have you received the Flu Vaccine for this season: No Have you received the Pneumonia Vaccine: No Review of Systems Review of Systems Review of systems:: pertinent systems reviewed and negative unless documented below Meds Home Medications and Allergies Home Medications ?Medication ?Instructions ?Recorded ?Confirmed ?Type No Known Home Medications 06/13/25 06/22/25 History New Prescriptions to Start Prescriptions: Allergies Allergy/AdvReac Type Severity Reaction Status Date / Time clindamycin AdvReac Nausea Verified 06/22/25 08:10 Exam Data for Last 24 hours Vital signs and Labs for Last 24 Hours: Temp Pulse Resp BP Pulse Ox O2 Del Method 97.2 F L 71 18 111/69 94 L Room Air 06/22/25 10:29 06/22/25 10:29 06/22/25 10:29 06/22/25 10:29 06/22/25 10:29 06/22/25 10:29 Laboratory Results - last 24 hr 06/22/25 08:00: Urine HCG, Qual Negative *Routine HEENT Exam Head: Present normocephalic Eye: Present EOMI ENT: Present mucous membranes moist *Routine Neck Exam Neck: Present supple and full ROM *Routine Respiratory Exam Respiratory: Present normal respiratory effort *Routine Cardiovascular Exam Cardiovascular: Present RRR *Routine Abdominal Exam Abdominal: Present soft *Routine Rectal Exam Rectal:: deferred *Routine Genitalia Exam Genitalia:: deferred *Routine Extremities Exam Extremities: Present full ROM Routine Back/Spine/Pelvis Exam Back/Spine: Present full ROM Assessment and Plan *Assessment and plan (1) Degenerative disc disease: Status: Chronic Qualifiers: Spinal region: lumbar Qualified Code(s): M51.36 - Other intervertebral disc degeneration, lumbar region Category: Medical (2) Lumbar spondylosis: Status: Chronic Category: Medical Code(s): M47.816 - Spondylosis without myelopathy or radiculopathy, lumbar region (3) Lumbar disc disease with radiculopathy: Status: Acute Category: Medical Code(s): M51.16 - Intervertebral disc disorders with radiculopathy, lumbar region (4) Battery end of life of spinal cord stimulator: Status: Acute Category: Medical Code(s): Z45.42 - Encounter for adjustment and management of neurostimulator Plan Replacement spinal cord similar generator
[2025-06-22 11:25] VITALS: BP 119/70; PULSE 81; RESP 16; TEMP 36.2; O2SAT 97
--- NOTE | 2025-06-22 12:41 | SUR.PHASEII ---
Pt has PONV after IV was D/C. emesis x4 noted. Violeta Potts CRNA notified. Order for Zofran 4mg SL given. 1059. Pt continues with N/V. Dr. Vidal notified. Order for anti nausea med was sent to pt pharmacy. cold wash cloths given to pt for comfort measures and cool air applied.[id number].
== END 2025-06-22 11:25 | disposition home or self-care (01) ==
PROVIDERS: PCP Family Medicine; Visit Provider Anesthesiology
PROC: (CPT 63685; principal; 2025-06-22 09:00)
DX: Z45.42 Encounter for adjustment and management of neurostimulator (principal); J44.89 Other specified chronic obstructive pulmonary disease; M51.16 Intervertebral disc disorders with radiculopathy, lumbar region; F17.210 Nicotine dependence, cigarettes, uncomplicated; Z88.1 Allergy status to other antibiotic agents
CPT/HCPCS: 63685; 81025; 99221; C1820; J1580; J2003; J2004; J2250; J2704; J3010; J7120; Q0162

== ENCOUNTER 2025-08-21 11:20 | Day surgery (SDC) | payer MEDICAID, SELFPAY ==
[2025-08-21 11:23] VITALS: BP 118/75; PULSE 113; RESP 18; O2SAT 99; BMI 24.5
[2025-08-21] MEDS: DEXAMETHASONE 10MG/ML 1ML VIAL 10 MG (11:30)
[2025-08-21] MEDS: BUPIVACAINE 0.25% 10ML INJ 25 MG IJ (11:30)
[2025-08-21] MEDS: LIDOCAINE 1% 5ML PF VIAL 5 ML (11:30)
[2025-08-21 11:32] VITALS: BP 120/78; PULSE 104; RESP 18; O2SAT 100
[2025-08-21 11:33] VITALS: BP 120/78; PULSE 102; RESP 18; O2SAT 100
--- NOTE | 2025-08-21 11:34 | P.PCN_ITS ---
Procedure Date: 08/21/25 Time: 11:30 Anesthesiologist:: Ronak Alvarado CRNA Complications:: None Pre-procedure Diagnosis:: Bilateral sacroiliitis Post-procedure Diagnosis:: Same Indications for Procedure:: Patient is a very pleasant 44-year-old female who comes to our clinic today for bilateral sacroiliac joint injection of cortisone and local anesthetic. Patient describes low lumbar back pain off the midline bilaterally. Bilateral posterior hip pain. Difficulty transitioning from sitting to standing. Difficulty with ambulation due to bilateral posterior hip pain. She rates her pain 7/10. Procedure Details:: Procedure: Bilateral sacroiliac joint injections under fluoroscopy Informed consent was obtained and the risks and benefits of the procedure were explained to the patient.~ The patient was taken to the procedure room and noninvasive monitors were placed including a noninvasive blood pressure cuff and pulse oximeter.~ The patient was placed prone on the procedure table. Both hips were cleansed using Betadine as a cleansing solution. C-arm fluoroscopy was used to view the right sacroiliac joint.~ The skin and subcutaneous tissues were anesthetized using lidocaine 1.5% and a 25-gauge needle.~ After this, a 22-gauge spinal needle was inserted under fluoroscopic guidance into the inferior aspect of the right sacroiliac joint.~ Omnipaque dye was injected and good spread was seen throughout the joint.~ After this, approximately 5 mL of bupivacaine, 0.25% and dexamethasone 5 mg was incrementally injected into the right sacroiliac joint. We then moved to the left sacroiliac joint.~ The skin and subcutaneous tissues were anesthetized using lidocaine 1.5% and a 25-gauge needle.~ After this, a 22- gauge spinal needle was inserted under fluoroscopic guidance into the inferior aspect of the left sacroiliac joint.~ Omnipaque dye was injected and good spread was seen throughout the joint. After this, approximately 5 mL of bupivacaine, 0.25% and dexamethasone 5 mg was incrementally injected into the left sacroiliac joint.~ The patient tolerated the procedure well with no complications. The patient was observed in the Pain Clinic and then was discharged home neurologically intact. Plan and Disposition:: Patient was discharged without incident.
[2025-08-21 11:37] VITALS: BP 148/81; PULSE 88; RESP 16; O2SAT 96
== END 2025-08-21 11:36 | disposition home or self-care (01) ==
PROVIDERS: PCP Family Medicine; Visit Provider Nurse Anesthetist, Certified Registered
DX: M46.1 Sacroiliitis, not elsewhere classified (principal); K52.9 Noninfective gastroenteritis and colitis, unspecified; Z96.82 Presence of neurostimulator; Z88.1 Allergy status to other antibiotic agents; Z79.899 Other long term (current) drug therapy
CPT/HCPCS: G0260; J0665; J1100; J2003